=== PATIENT | male | born 1960 | race Caucasian/White ===

== ENCOUNTER 2018-11-10 09:55 | Inpatient (IN) | payer MEDICAID ==
[2018-11-10] MEDS ORDERED: Famotidine 20 MG/2 ML SDV IVPUSH ONE (09:58)
--- NOTE | 2018-11-10 09:58 | EDM.PDOC ---
ED HPI GENERAL MEDICAL PROBLEM - General Chief Complaint: General Stated Complaint: pale, decrease level of response, not normal self Time Seen by Provider: 11/10/18 09:57 Source of Information: Reports: Patient, [facility] Records, Old Records ([facility] EMR. No paper hospital chart available.), Other ([facility] records from hospitalization in October 2018) History Limitations: Reports: Altered Mental Status - History of Present Illness INITIAL COMMENTS - FREE TEXT/NARRATIVE: The patient was brought to the emergency room via transport vehicle from [facility] or evaluation of apparent intermittent brief apneic episodes since yesterday evening with episodes lasting about 15-30 seconds. The patient is an extremely poor historian secondary to his current psychosis and emotional status. No apparent recent history of chest pain or anginal type symptoms. Only limited history available from the halfway. Note that the patient was recently hospitalized at the [facility] from 11/01 through 11/06/17 with multiple adjustment of medications that that time, including increasing his Depakote and change to Risperdal. Accu-Chek was also increased in the 400s yesterday with increased Lantus therapy by his regular provider, SAMMI Gore, from [facility] in [place], at that time. He apparently normally runs high blood sugars with sliding scale not in effect. No apparent recent abdominal complaints, anorexia, foul-smelling urine, etc. The patient also denies any recent fever, cough, wheezing, dyspnea, etc.. Patient was tachycardic this morning with known history of tachycardia in the past and current beta raisa therapy. The patient has been declining since June 2018 with frequent falls, however no acute injury. Note recent CT scan of the head and EEG at the [facility] in [place] as below with patient more lethargic since yesterday evening. He denies any current pain or discomfort. The patient did receive his morning medications today. Onset: Gradual, Unknown/Unsure Onset Date: 11/09/18 Duration: Getting Worse Location: Reports: Other (No apparent pain) Quality: Reports: Same as Previous Episode Severity: Moderate Improves with: Reports: None Worsens with: Reports: None Context: Reports: Other (As above). Denies: Sick Contact, Trauma Associated Symptoms: Reports: Confusion (Stable). 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 (see below) (None) - Related Data Allergies Allergy/AdvReac Type Severity Reaction Status Date / Time loteprednol Allergy Unknown Other Verified 11/10/18 10:48 prednisolone Allergy Unknown Other Verified 11/10/18 10:48 atorvastatin Allergy Other Verified 11/10/18 10:48 Home Meds: Home Meds Acetaminophen 650 mg PO Q6H PRN 11/10/18 [History] Allopurinol [Zyloprim] 100 mg PO DAILY 11/10/18 [History] Bisacodyl [Correctol] 5 mg PO Q12H PRN 11/10/18 [History] Cholecalciferol (Vitamin D3) [Vitamin D3] 4,000 unit PO DAILY 11/10/18 [History] Divalproex Sodium [Divalproex Sodium ER] 500 mg PO BID 11/10/18 [History] Dorzolamide HCl/Pf [Dorzolamide 2% Eye Drop] 1 drop EYEBOTH BID 11/10/18 [ History] EPINEPHrine [Symjepi] 0.3 mg SQ Q15M PRN 11/10/18 [History] Famotidine 20 mg PO BID 11/10/18 [History] Fenofibrate Nanocrystallized [Fenofibrate] 145 mg PO BEDTIME 11/10/18 [History] Hydrocortisone [Hydrocortisone 2.5% Crm] 1 applicful RECTAL BID PRN 11/10/18 [ History] Insulin Glarg,Human.Rec.Analog [Lantus] 30 unit SUBCUT BEDTIME 11/10/18 [History ] L.acidoph,Paracasei, B.lactis [Probiotic] 1 each PO DAILY 11/10/18 [History] Latanoprost [Xalatan] 1 drop EYEBOTH BEDTIME 11/10/18 [History] Levothyroxine Sodium [Euthyrox] 50 mcg PO DAILY 11/10/18 [History] Melatonin 3 mg PO BEDTIME 11/10/18 [History] Metoprolol Tartrate 25 mg PO BID 11/10/18 [History] Miconazole [Miconazole 2% Crm] 1 applic TOP BID PRN 11/10/18 [History] Pravastatin Sodium [Pravachol] 40 mg PO BEDTIME 11/10/18 [History] Psyllium Husk [Metamucil] 0.4 gm PO DAILY 11/10/18 [History] Timolol Maleate [Timoptic 0.5% Opth Soln] 1 drop EYEBOTH BID 11/10/18 [History] risperiDONE 2 mg PO BEDTIME 11/10/18 [History] Past Medical History HEENT History: Reports: Cataract, Glaucoma Cardiovascular History: Reports: Arrhythmia, High Cholesterol, Hypertension, Other (See Below) Other Cardiovascular History: Known sinus tachycardia. Mixed hyperlipidemia. Respiratory History: Reports: Other (See Below). Denies: Asthma, COPD Other Respiratory History: History of respiratory failure Gastrointestinal History: Reports: Chronic Constipation, GERD Musculoskeletal History: Reports: Gout, Osteoarthritis, RA, Other (See Below) Other Musculoskeletal History: Juvenile rheumatoid arthritis. History of rhabdomyolysis. Neurological History: Reports: Concussion, Head Trauma, Neuropathy, Diabetic, Neuropathy, Peripheral, Parkinson's, Seizure, Other (See Below) Other Neuro History: Bilateral encephalomalacia by CT scan. History of traumatic brain injury. Neuroleptic induced parkinsonian disease. Recurrent falls. Psychiatric History: Reports: Addiction, Anxiety, Bipolar, Depression, Psych Hospitalization(s), Psychosis, Schizophrenia, Other (See Below) Other Psychiatric History: History of alcohol abuse Endocrine/Metabolic History: Reports: Diabetes, Type II, IDDM, Obesity/BMI 30+, Vitamin D Deficiency. Denies: Hypothyroidism Hematologic History: Reports: None. Denies: Anemia Dermatologic History: Reports: Other (See Below) Other Dermatologic History: Recurrent tinea. - Infectious Disease History Infectious Disease History: Reports: None (Unknown) - Past Surgical History HEENT Surgical History: Reports: Cataract Surgery - Past Imaging History Past Imaging History: Reports: CAT Scan (Last CT of the head at the [facility] on 11/01/18 with previous evaluations on 07/12/18, 09/29/17, and 04/27/16. CT of the abdomen and pelvis on 11/04/17.), EEG (At the [facility] in October 2018 negative by history.) Social & Family History - Family History Family Medical History: Unobtainable - Alcohol Use Alcohol Use History: Yes Number of Drinks Per Day Comment: Alcohol abuse history as above - Living Situation & Occupation Living situation: Reports: Extended Care Facility ([facility]) ED ROS GENERAL - Review of Systems Review Of Systems: ROS reveals no pertinent complaints other than HPI. ED EXAM, GENERAL - Physical Exam Exam: See Below Exam Limited By: Altered Mental Status General Appearance: Alert, No Apparent Distress. No: Lethargic Eye Exam: Bilateral Eye: EOMI, Normal Fundi, Normal Inspection (No nystagmus), PERRL Ears: Normal External Exam, Normal Canal, Hearing Grossly Normal, Normal TMs Nose: Normal Inspection, Normal Mucosa, No Blood Throat/Mouth: Normal Inspection, Normal Lips, Normal Teeth, Normal Gums, Normal Oropharynx, Normal Voice, No Airway Compromise. No: Dysphagia, Perioral Cyanosis Head: Atraumatic, Normocephalic. No: Facial Swelling, Facial Tenderness, Sinus Tenderness Neck: Normal Inspection, Supple, Non-Tender, Full Range of Motion. No: Lymphadenopathy (L), Lymphadenopathy (R), Thyromegaly Respiratory/Chest: No Respiratory Distress, Lungs Clear, Normal Breath Sounds, No Accessory Muscle Use, Chest Non-Tender, Other (Occasional brief episodes of abdominal breathing but no true apnea or distress). No: Pleural Rub, Retractions Cardiovascular: Normal Peripheral Pulses, No Edema, No Gallop, No JVD, No Murmur , No Rub, Tachycardia (Mild. Regular rhythm). No: Gallop/S3, Gallop/S4, Friction Rub Peripheral Pulses: 2+: Radial (L), Radial (R) GI/Abdominal: Normal Bowel Sounds, Soft, Non-Tender, No Organomegaly, No Distention, No Abnormal Bruit, No Mass, Pelvis Stable, Other (Obese). No: Guarding (Male) Exam: Deferred Rectal (Males) Exam: Deferred Back Exam: Normal Inspection, Full Range of Motion. No: CVA Tenderness (L), CVA Tenderness (R), Muscle Spasm Extremities: Normal Inspection, Normal Range of Motion, Non-Tender, No Pedal Edema, Normal Capillary Refill. No: Rossy's Sign Neurological: Alert, Confused (Stable psychosis), Disoriented, Other (Mild resting tremor, rigidity, and cogwheeling) Psychiatric: Flat Affect. No: Anxious, Depressed Mood Skin Exam: Warm, Dry, Intact, Normal Color, No Rash. No: Diaphoretic, Ecchymosis, Wound/Incision Lymphatic: No Adenopathy EKG INTERPRETATION EKG Date: 11/10/18 Time: 09:59 Rhythm: Other (Sinus tachycardia) Rate (Beats/Min): 114 Bledsoe: Normal (Neutral cardiac) P-Wave: Enlarged (Mild diffuse biphasic P waves with extreme poor R-wave progression in the anterior leads) QRS: Normal (0.07 seconds) ST-T: Other (Noisy baseline with nonspecific diffuse ST changes with no evidence of ischemia) OH/PQ Interval: 0.17 seconds Comparison: NA - No Prior EKG EKG Interpretation Comments: 1. No acute ischemic changes 2. Sinus tachycardia Course - Vital Signs Last Recorded V/S: Last Vital Signs Temp 36.1 C 11/10/18 10:05 Pulse 115 H 11/10/18 11:26 Resp 17 11/10/18 11:26 BP 128/68 11/10/18 11:26 Pulse Ox 98 11/10/18 11:26 Vital Signs - 24 hr 11/10/18 11/10/18 11/10/18 10:05 10:39 11:26 Temperature [ 36.1 C Temporal] Pulse, 110 H 111 H 115 H Peripheral [ Left Pulse Oximetry] Respiratory 30 H 24 H 17 Rate Blood Pressure 132/79 129/78 128/68 [Right Upper Arm] O2 Sat by Pulse 97 96 98 Oximetry - Orders/Labs/Meds Orders: Active Orders 24 hr Category Date Time Status Cardiac Monitoring [RC] . DIRECTED Care 11/10/18 09:58 Active EKG Documentation Completion [RC] ASDIRECTED Care 11/10/18 09:58 Active Oxygen Therapy, ED [RC] PRN Care 11/10/18 09:58 Active Peripheral IV Care [RC] . DIRECTED Care 11/10/18 09:58 Active Pulse Oximetry [RC] CONTINUOUS Care 11/10/18 09:58 Active Up With Assistance [RC] PFP Care 11/10/18 09:58 Active Vital Signs [RC] PFP Care 11/10/18 09:58 Active Nothing per Oral Now Diet [DIET] Diet 11/10/18 Breakfast Active Chest 1V Frontal [CR] Stat Exams 11/10/18 09:58 Taken Sodium Chloride 0.9% [Saline Flush] Med 11/10/18 09:58 Active 10 ml FLUSH ASDIRECTED PRN Obtain Past Medical Record [OM.PC] Urgent Oth 11/10/18 09:58 Active Peripheral IV Insertion Adult [OM.PC] Stat Oth 11/10/18 09:58 Ordered Resuscitation Status Stat Resus Stat 11/10/18 09:58 Ordered Medication Orders Sodium Chloride (Saline Flush) 10 ml FLUSH ASDIRECTED PRN PRN Reason: Keep Vein Open Labs: Laboratory Tests 11/10/18 11/10/18 11/10/18 Range/Units 10:10 10:10 10:10 WBC 13.8 H (4.0-10.2) K/uL RBC 4.18 L (4.33-5.41) M/uL Hgb 13.8 D (13.1-16.8) g/dL Hct 41.0 (39.0-49.0) % MCV 98.1 H (84.0-98.0) fL MCH 33.0 (28.2-33.3) pg MCHC 33.7 (31.7-36.0) g/dL RDW 14.1 (11.2-14.1) % Plt Count 275 (150-350) K/uL Neut % (Auto) 86.4 H (45.0-80.0) % Lymph % (Auto) 5.7 L (10.0-50.0) % [place] % (Auto) 7.7 (2.0-14.0) % Eos % (Auto) 0.1 (0.0-5.0) % Baso % (Auto) 0.1 (0.0-2.0) % Neut # (Auto) 11.92 H (1.40-7.00) K/uL Lymph # (Auto) 0.78 (0.50-3.50) K/uL [place] # (Auto) 1.06 H (0.00-1.00) K/uL Eos # (Auto) 0.01 (0.00-0.50) K/uL Baso # (Auto) 0.01 (0.00-0.20) K/uL PT 12.3 H (9.5-12.0) SEC INR 1.1 APTT 30.3 (21.0-31.3) SEC D-Dimer, Quantitative 2520 H (0-400) ng/mL Sodium (136-145) mmol/L Potassium (3.5-5.1) mmol/L Chloride (98-107) mmol/L Carbon Dioxide (21.0-32.0) mmol/L BUN (7-18) mg/dL Creatinine (0.51-1.17) mg/dL Est Cr Clr Drug Dosing Estimated GFR (MDRD) mL/min Glucose (74-106) mg/dL Lactic Acid (0.4-2.0) mmol/L Uric Acid (2.6-7.2) mg/dL Calcium (8.5-10.1) mg/dL Magnesium (1.8-2.4) mg/dL Total Bilirubin (0.2-1.0) mg/dL AST (15-37) U/L ALT (12-78) U/L Alkaline Phosphatase (46-116) IU/L Creatine Kinase (26-308) U/L Creatine Kinase Index (0.0-2.5) % CK-MB (CK-2) (0.00-3.60) ng/mL Troponin I (0.000-0.056) ng/mL NT-Pro-B Natriuret Pep (0-125) pg/mL Total Protein (6.4-8.2) g/dL Albumin (3.4-5.0) g/dL TSH, Ultra Sensitive (0.358-3.740) mIU/mL Ketones 11/10/18 11/10/18 11/10/18 Range/Units 10:10 10:10 10:10 WBC (4.0-10.2) K/uL RBC (4.33-5.41) M/uL Hgb (13.1-16.8) g/dL Hct (39.0-49.0) % MCV (84.0-98.0) fL MCH (28.2-33.3) pg MCHC (31.7-36.0) g/dL RDW (11.2-14.1) % Plt Count (150-350) K/uL Neut % (Auto) (45.0-80.0) % Lymph % (Auto) (10.0-50.0) % [place] % (Auto) (2.0-14.0) % Eos % (Auto) (0.0-5.0) % Baso % (Auto) (0.0-2.0) % Neut # (Auto) (1.40-7.00) K/uL Lymph # (Auto) (0.50-3.50) K/uL [place] # (Auto) (0.00-1.00) K/uL Eos # (Auto) (0.00-0.50) K/uL Baso # (Auto) (0.00-0.20) K/uL PT (9.5-12.0) SEC INR APTT (21.0-31.3) SEC D-Dimer, Quantitative (0-400) ng/mL Sodium 130 L (136-145) mmol/L Potassium 5.4 H (3.5-5.1) mmol/L Chloride 96 L (98-107) mmol/L Carbon Dioxide 20.0 L (21.0-32.0) mmol/L BUN 27 H (7-18) mg/dL Creatinine 1.58 H (0.51-1.17) mg/dL Est Cr Clr Drug Dosing TNP Estimated GFR (MDRD) 45 mL/min Glucose 465 H* (74-106) mg/dL Lactic Acid 2.2 H (0.4-2.0) mmol/L Uric Acid 4.5 (2.6-7.2) mg/dL Calcium 9.4 (8.5-10.1) mg/dL Magnesium 1.7 L (1.8-2.4) mg/dL Total Bilirubin 0.9 (0.2-1.0) mg/dL AST 33 (15-37) U/L ALT 25 (12-78) U/L Alkaline Phosphatase 86 (46-116) IU/L Creatine Kinase 58 (26-308) U/L Creatine Kinase Index 2.6 H (0.0-2.5) % CK-MB (CK-2) 1.50 (0.00-3.60) ng/mL Troponin I 0.000 (0.000-0.056) ng/mL NT-Pro-B Natriuret Pep 412 H (0-125) pg/mL Total Protein 8.4 H (6.4-8.2) g/dL Albumin 2.8 L (3.4-5.0) g/dL TSH, Ultra Sensitive 3.667 (0.358-3.740) mIU/mL Ketones Small Meds: Medications Generic Name Dose Route Start Last Admin Trade Name Freq PRN Reason Stop Dose Admin Sodium Chloride 10 ml 11/10/18 09:58 Saline Flush FLUSH ASDIRECTED PRN Keep Vein Open Discontinued Medications Generic Name Dose Route Start Last Admin Trade Name Freq PRN Reason Stop Dose Admin Famotidine 40 mg 11/10/18 09:58 11/10/18 10:17 Pepcid IVPUSH 11/10/18 09:59 40 mg ONETIME ONE Administration - Radiology Interpretation Free Text/Narrative:: 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 Departure - Departure Time of Disposition: 11:50 Disposition: Refer to Observation Condition: Fair Clinical Impression: Rheumatoid arthritis, Psychosis, Hypertension, Apnea, IDDM (insulin dependent diabetes mellitus), Elevated d-dimer, CHF (congestive heart failure), Tachycardia, Renal insufficiency, Hyponatremia, Hyperkalemia, Hypomagnesemia, Hypoalbuminemia - Discharge Information *PRESCRIPTION DRUG MONITORING PROGRAM REVIEWED*: Not Applicable *COPY OF PRESCRIPTION DRUG MONITORING REPORT IN PATIENT TODD: Not Applicable Referrals: Stefanie Sandoval MD [Primary Care Provider] - Forms: ED Department Discharge Care Plan Goals: See plan - Problem List & Annotations (1) Apnea SNOMED Code(s): 7675912, 878903970 Code(s): R06.81 - APNEA, NOT ELSEWHERE CLASSIFIED Status: Acute Priority : High Current Visit: Yes Onset Date: 11/09/18 Annotation/Comment:: No true apneic episodes in the emergency room with more abdominal type breathing. Note baseline sinus tachycardia with no apparent chest pain or anginal complaints despite CHF. No significant EKG changes. Note NO CODE STATUS. Telephone consultation with Valerie from the [facility] in [place] with no telemetry beds available in their facility. We did receive approval for admission to this facility. Plan to place the patient in observation status with transfer to the [facility] in [place] tomorrow. Otherwise, he will be transferred back to his regular provider, Stefanie Sandoval MD at [facility] in [place], in the a.m., if no bed is still available. Initiate standard rule out PR orders. No oxygen therapy is required at this time. (2) CHF (congestive heart failure) SNOMED Code(s): 88311183 Code(s): I50.9 - HEART FAILURE, UNSPECIFIED Status: Acute Priority: High Current Visit: Yes Onset Date: 11/10/18 Annotation/Comment:: No Chest pain or anginal complaints with chest pain protocol not initiated in the emergency room. Note NO CODE STATUS with no further echocardiogram, cardiology workup, etc. Qualifiers: Heart failure type: unspecified Heart failure chronicity: acute Qualified Code(s): I50.9 - Heart failure, unspecified (3) Elevated d-dimer SNOMED Code(s): 074746032 Code(s): R79.89 - OTHER SPECIFIED ABNORMAL FINDINGS OF BLOOD CHEMISTRY Status: Acute Priority: High Current Visit: Yes Onset Date: 11/10/18 Annotation/Comment:: Newly diagnosed. CT scan not available at this time. Note renal insufficiency and NO CODE STATUS. Venous Doppler studies to be conducted later today. (4) Hypertension SNOMED Code(s): 83085934 Code(s): I10 - ESSENTIAL (PRIMARY) HYPERTENSION Status: Chronic Priority : Medium Current Visit: Yes Annotation/Comment:: Good control in the emergency room. Qualifiers: Hypertension type: essential hypertension Qualified Code(s): I10 - Essential (primary) hypertension (5) IDDM (insulin dependent diabetes mellitus) SNOMED Code(s): 02236964 Code(s): E11.9 - TYPE 2 DIABETES MELLITUS WITHOUT COMPLICATIONS; Z79.4 - FDC (CURRENT) USE OF INSULIN Status: Chronic Priority: High Current Visit: Yes Annotation/Comment:: Significant persistent hyperglycemia. Low- dose IV Humulin regular insulin on admission with initiation of subcutaneous sliding scale. Glycosylated hemoglobin to be obtained in the a.m. Note mildly elevated ketones. (6) Psychosis SNOMED Code(s): 53315712 Code(s): F29 - UNSP PSYCHOSIS NOT DUE TO A SUBSTANCE OR KNOWN PHYSIOL COND Status: Chronic Priority: High Current Visit: Yes Annotation/Comment:: [facility] [place] during recent hospitalization as above. Continue to observe closely Qualifiers: Psychosis type: schizoaffective disorder Schizoaffective disorder type: bipolar Qualified Code(s): F25.0 - Schizoaffective disorder, bipolar type (7) Rheumatoid arthritis SNOMED Code(s): 57756653 Code(s): M06.9 - RHEUMATOID ARTHRITIS, UNSPECIFIED Status: Chronic Priority: Medium Current Visit: Yes Annotation/Comment:: Stable by history Qualifiers: Rheumatoid arthritis location: multiple sites Rheumatoid factor presence: unspecified presence Qualified Code(s): M06.9 - Rheumatoid arthritis, unspecified (8) Hyperkalemia SNOMED Code(s): 05937353 Code(s): E87.5 - HYPERKALEMIA Status: Acute Priority: High Current Visit: Yes Onset Date: 11/10/18 Annotation/Comment:: IV Lasix therapy. IV Humulin regular as above. Continue to observe closely. Note newly diagnosed diabetic nephropathy. (9) Hypoalbuminemia SNOMED Code(s): 375333342 Code(s): E88.09 - [facility] DISORDERS OF PLASMA-PROTEIN METABOLISM, NEC Status: Acute Priority: Medium Current Visit: Yes Onset Date: 11/10/18 Annotation/Comment:: Observe for now. Consider high protein Glucerna supplements. (10) Hypomagnesemia SNOMED Code(s): 281179525 Code(s): E83.42 - HYPOMAGNESEMIA Status: Acute Priority: Medium Current Visit: Yes Onset Date: 11/10/18 Annotation/Comment:: Observe for now secondary to his renal insufficiency. (11) Hyponatremia SNOMED Code(s): 15430086 Code(s): E87.1 - HYPO-OSMOLALITY AND HYPONATREMIA Status: Acute Priority : High Current Visit: Yes Onset Date: 11/10/18 Annotation/Comment:: Secondary to his CHF. IV Lasix therapy as above. Hyponatremia may be partial etiology to his increased lethargy. Note recent medication changes, CT scan of the head, EEG, etc. at the [facility] [place] as above. (12) Renal insufficiency SNOMED Code(s): 294686682, 227718831 Code(s): N28.9 - DISORDER OF KIDNEY AND URETER, UNSPECIFIED Status: Acute Priority: High Current Visit: Yes Onset Date: 11/10/18 Annotation/ Comment:: Newly diagnosed probable diabetic nephropathy. IV Lasix therapy with caution as above. Continue to observe closely by his regular providers at the accepting physicians. (13) Tachycardia SNOMED Code(s): 8281500 Code(s): R00.0 - TACHYCARDIA, UNSPECIFIED Status: Chronic Priority: Medium Current Visit: Yes Annotation/Comment:: Consider increase of beta raisa therapy. Observe for now. - Problem List Review Problem List Initiated/Reviewed/Updated: Yes - My Orders Last 24 Hours: My Active Orders 11/10/18 09:58 Cardiac Monitoring [RC] . DIRECTED EKG Documentation Completion [RC] ASDIRECTED Oxygen Therapy, ED [RC] PRN Peripheral IV Care [RC] . DIRECTED Pulse Oximetry [RC] CONTINUOUS Up With Assistance [RC] PFP Vital Signs [RC] PFP Chest 1V Frontal [CR] Stat Sodium Chloride 0.9% [Saline Flush] 10 ml FLUSH ASDIRECTED PRN Obtain Past Medical Record [OM.PC] Urgent Peripheral IV Insertion Adult [OM.PC] Stat Resuscitation Status Stat 11/10/18 Breakfast Nothing per Oral Now Diet [DIET] - Assessment/Plan Admission H&P: Please use this note as an admission H&P Last 24 Hours: My Active Orders 11/10/18 09:58 Cardiac Monitoring [RC] . DIRECTED EKG Documentation Completion [RC] ASDIRECTED Oxygen Therapy, ED [RC] PRN Peripheral IV Care [RC] . DIRECTED Pulse Oximetry [RC] CONTINUOUS Up With Assistance [RC] PFP Vital Signs [RC] PFP Chest 1V Frontal [CR] Stat Sodium Chloride 0.9% [Saline Flush] 10 ml FLUSH ASDIRECTED PRN Obtain Past Medical Record [OM.PC] Urgent Peripheral IV Insertion Adult [OM.PC] Stat Resuscitation Status Stat 11/10/18 Breakfast Nothing per Oral Now Diet [DIET] Assessment:: As above Plan: As above. Extensive precautions were given to the patient, who is in agreement with the treatment plan. The patient's condition is stable enough for observation status and general supervision. Transfer to the [facility] in [place] tomorrow planned as above.
[2018-11-10 11:17] LABS: CHLORIDE,CL 96 mmol/L (98-107); SODIUM,NA 130 mmol/L (136-145)
[2018-11-10] MEDS ORDERED: Acetaminophen 325 MG Tab PO PRN (12:00)
[2018-11-10] MEDS ORDERED: Insulin Regular, Human 100 Units/ML 3 ML Vial IV ONE ×2 (12:06→14:55)
[2018-11-10] MEDS: Furosemide 40 MG/4 ML VIAL IVPUSH SCH ×2 (13:36→20:37)
[2018-11-10] MEDS: Enoxaparin 100 MG/1 ML Syringe SUBCUT SCH (13:36)
[2018-11-10] MEDS: Sodium Chloride 0.9% 10 ML Syringe FLUSH PRN (13:37)
--- NOTE | 2018-11-10 15:02 | PCM.SN ---
- Free Text/Narrative Note: Verbal telephone report from Estrella ididwork tech, indicates negative bilateral leg Venous doppler study for DVT. UA is negative with no infection source so far. WBC elevation secondary to stress reaction? Continue to observe for now with no indication for antibiotics to this point. Recent Accu-check also shows increased blood sugar. Additional dose of 10 IU of Humulin regular with labs and sliding scale already scheduled for later this PM. May need to consider insulin infusion, if hyperglycemia remains refractory to above therapy.
[2018-11-10] MEDS ORDERED: Insulin Glarg,Human.Rec.Analog 100 UNIT/ML ML SUBCUT SCH ×2 (18:12→20:00)
[2018-11-10] MEDS ORDERED: Insulin Glarg,Human.Rec.Analog 100 UNIT/ML ML SUBCUT ONE (18:13)
[2018-11-10] MEDS: Divalproex Sodium Delayed-Release 250 MG Tab.CR PO SCH (18:16)
[2018-11-10] MEDS: Omeprazole 20 MG Cap.CR PO SCH (18:17)
[2018-11-10] MEDS: Metoprolol Tartrate 25 MG Tab PO SCH (18:18)
[2018-11-10] MEDS: Timolol Maleate 0.5% Ophth Soln 5 ML Bottle EYEBOTH SCH (18:32)
[2018-11-10] MEDS: Dorzolamide 2% Ophth Soln 10 ML Bottle EYEBOTH SCH (18:32)
[2018-11-10] MEDS: Insulin Lispro 100 Units/ML 3 ML Vial SUBCUT SCH ×3 (18:41→21:43)
[2018-11-10] MEDS ORDERED: Insulin Lispro 100 Units/ML 3 ML Vial SUBCUT ONE (18:43)
[2018-11-10] MEDS ORDERED: Fenofibrate,Micronized 134 MG Cap PO SCH (20:00)
[2018-11-10] MEDS ORDERED: Pravastatin 20 MG Tab PO SCH (20:00)
[2018-11-10] MEDS ORDERED: risperiDONE 1 MG Tab PO SCH (20:00)
[2018-11-10] MEDS ORDERED: Melatonin 3 MG Tab PO SCH (20:00)
[2018-11-10] MEDS: Latanoprost 0.005% Ophth Soln 2.5 ML Bottle EYEBOTH SCH (20:36)
[2018-11-10] MEDS ORDERED: Insulin Lispro Protamine/Lispro 75-25 100 Units/ML 10 ML Vial SUBCUT ONE (21:00)
[2018-11-11] MEDS: Furosemide 40 MG/4 ML VIAL IVPUSH SCH ×2 (03:33→12:11)
[2018-11-11] MEDS: Sodium Chloride 0.9% 10 ML Syringe FLUSH PRN ×5 (03:34→20:21)
[2018-11-11] MEDS ORDERED: Insulin Lispro 100 Units/ML 3 ML Vial SUBCUT SCH (07:30)
[2018-11-11 07:31] LABS: HEMOGLOBIN A1C 8.2 % (4.3-5.7)
[2018-11-11] MEDS ORDERED: Allopurinol 100 MG Tab PO SCH (08:00)
[2018-11-11] MEDS ORDERED: Levothyroxine 50 MCG Tab PO SCH (08:00)
[2018-11-11] MEDS ORDERED: Lactobacillus Rhamnosus GG (Probiotic) Cap PO SCH (08:00)
[2018-11-11] MEDS ORDERED: PSYLLIUM HUSK 0.4 GM PO SCH (08:00)
[2018-11-11] MEDS ORDERED: Cholecalciferol (Vitamin D3) 1,000 Unit Tab PO SCH (08:00)
[2018-11-11] MEDS: Insulin Lispro 100 Units/ML 3 ML Vial SUBCUT SCH ×4 (08:02→20:30)
[2018-11-11] MEDS: Divalproex Sodium Delayed-Release 250 MG Tab.CR PO SCH (08:03)
[2018-11-11] MEDS: Omeprazole 20 MG Cap.CR PO SCH (08:03)
[2018-11-11] MEDS: Insulin Glarg,Human.Rec.Analog 100 UNIT/ML ML SUBCUT SCH ×2 (08:03→17:36)
[2018-11-11] MEDS: Metoprolol Tartrate 25 MG Tab PO SCH (08:04)
[2018-11-11] MEDS: Timolol Maleate 0.5% Ophth Soln 5 ML Bottle EYEBOTH SCH ×2 (08:05→17:40)
[2018-11-11] MEDS: Dorzolamide 2% Ophth Soln 10 ML Bottle EYEBOTH SCH ×2 (08:05→17:40)
[2018-11-11] MEDS ORDERED: Potassium Chloride 10% 20 MEQ/15 ML Soln 15 ML UD Cup PO SCH (09:15)
[2018-11-11] MEDS: cefTRIAXone 1 GM in Sodium Chloride 0.9% 100 ML IV SCH ×2 (09:41→20:21)
[2018-11-11] MEDS: metroNIDAZOLE/Normal Saline 500 MG in Premix Bag 1 BAG IV SCH ×2 (10:16→17:35)
--- NOTE | 2018-11-11 11:27 | PCM.PN ---
- General Info Date of Service: 11/11/18 Admission Dx/Problem (Free Text): 1. CHF 2. Decompensated IDDM 3. Sedation Subjective Update: He is an extremely poor historian secondary to his mental status and sedation. Functional Status: Reports: Pain Controlled, Tolerating Diet (Some borderline aspiration), Urinating, New Symptoms (Difficulty taking oral medication). Denies: Ambulating, Incentive Spirometry (Unable to perform) Pain Score: 0 - Review of Systems General: Reports: Weakness (Stable Table chronic), Fatigue, Malaise. Denies: Fever, Chills, Night Sweats, Appetite HEENT: Reports: No Symptoms Pulmonary: Reports: No Symptoms. Denies: Shortness of Breath, Cough, Wheezing Cardiovascular: Reports: Edema (Dependent edema improved) Gastrointestinal: Reports: No Symptoms Genitourinary: Reports: No Symptoms Musculoskeletal: Reports: No Symptoms Skin: Reports: Bruising (Lovenox sites). Denies: Diaphoresis Neurological: Reports: Confusion (Stable), Pre-Existing Deficit, Tremors ( Resting), Difficulty Walking (Stable), Weakness (Stable) Psychiatric: Reports: Confusion. Denies: Agitation, Hallucinations - Patient Data Vitals - Most Recent: Last Vital Signs Temp 37.1 C 11/11/18 09:00 Pulse 110 H 11/11/18 09:00 Resp 40 H 11/11/18 09:00 BP 105/64 11/11/18 09:00 Pulse Ox 95 11/11/18 09:00 Vital Signs - 24 hr 11/10/18 11/10/18 11/10/18 11:26 12:02 16:02 Temperature [ Oral] Temperature [ 35.8 C 37.7 C Temporal] Pulse, Peripheral Pulse, 115 H 114 H 107 H Peripheral [ Left Pulse Oximetry] Respiratory 17 32 H 24 H Rate Blood Pressure Blood Pressure 128/68 114/73 152/79 H [Right Upper Arm] O2 Sat by Pulse 98 97 97 Oximetry 11/10/18 11/10/18 11/10/18 18:02 18:18 20:00 Temperature [ Oral] Temperature [ 36.3 C 36.2 C Temporal] Pulse, 107 H Peripheral Pulse, 107 H 97 Peripheral [ Left Pulse Oximetry] Respiratory 24 H 18 Rate Blood Pressure 152/79 H Blood Pressure 152/79 H 142/79 H [Right Upper Arm] O2 Sat by Pulse 98 Oximetry 11/10/18 11/11/18 11/11/18 22:37 00:00 03:34 Temperature [ Oral] Temperature [ 36.3 C 36.3 C 36.6 C Temporal] Pulse, Peripheral Pulse, 95 105 H 107 H Peripheral [ Left Pulse Oximetry] Respiratory 20 40 H 32 H Rate Blood Pressure Blood Pressure 142/79 H 126/80 142/78 H [Right Upper Arm] O2 Sat by Pulse 98 97 96 Oximetry 11/11/18 11/11/18 07:00 09:00 Temperature [ 37.1 C Oral] Temperature [ 36.6 C Temporal] Pulse, Peripheral Pulse, 105 H 110 H Peripheral [ Left Pulse Oximetry] Respiratory 20 40 H Rate Blood Pressure Blood Pressure 136/78 105/64 [Right Upper Arm] O2 Sat by Pulse 96 95 Oximetry Weight - Most Recent: 89.358 kg (Down 9 kg since admission?) Imaging Impressions - Last 24 Hours: site monitor shows occasional mild sinus tachycardia in the 100s with no other ectopy or arrhythmia Venous Doppler studies of the lower extremities bilaterally were negative for DVT. Lab Results Last 24 Hours: Laboratory Results - last 24 hr 11/10/18 11/10/18 11/10/18 Range/Units 10:10 10:10 10:10 WBC (4.0-10.2) K/uL RBC (4.33-5.41) M/uL Hgb (13.1-16.8) g/dL Hct (39.0-49.0) % MCV (84.0-98.0) fL MCH (28.2-33.3) pg MCHC (31.7-36.0) g/dL RDW (11.2-14.1) % Plt Count (150-350) K/uL Neut % (Auto) (45.0-80.0) % Lymph % (Auto) (10.0-50.0) % [place] % (Auto) (2.0-14.0) % Eos % (Auto) (0.0-5.0) % Baso % (Auto) (0.0-2.0) % Neut # (Auto) (1.40-7.00) K/uL Lymph # (Auto) (0.50-3.50) K/uL [place] # (Auto) (0.00-1.00) K/uL Eos # (Auto) (0.00-0.50) K/uL Baso # (Auto) (0.00-0.20) K/uL D-Dimer, Quantitative (0-400) ng/mL Sodium 130 L (136-145) mmol/L Potassium 5.4 H (3.5-5.1) mmol/L Chloride 96 L (98-107) mmol/L Carbon Dioxide 20.0 L (21.0-32.0) mmol/L BUN 27 H (7-18) mg/dL Creatinine 1.58 H (0.51-1.17) mg/dL Est Cr Clr Drug Dosing TNP Estimated GFR (MDRD) 45 mL/min Glucose 465 H* (74-106) mg/dL POC Glucose (65-110) mg/dl Hemoglobin A1c (4.3-5.7) % Lactic Acid 2.2 H (0.4-2.0) mmol/L Uric Acid 4.5 (2.6-7.2) mg/dL Calcium 9.4 (8.5-10.1) mg/dL Phosphorus (2.6-4.7) mg/dL Magnesium 1.7 L (1.8-2.4) mg/dL Total Bilirubin 0.9 (0.2-1.0) mg/dL AST 33 (15-37) U/L ALT 25 (12-78) U/L Alkaline Phosphatase 86 (46-116) IU/L Creatine Kinase 58 (26-308) U/L Creatine Kinase Index 2.6 H (0.0-2.5) % CK-MB (CK-2) 1.50 (0.00-3.60) ng/mL Troponin I 0.000 (0.000-0.056) ng/mL NT-Pro-B Natriuret Pep 412 H (0-125) pg/mL Total Protein 8.4 H (6.4-8.2) g/dL Albumin 2.8 L (3.4-5.0) g/dL TSH, Ultra Sensitive 3.667 (0.358-3.740) mIU/mL Specimen Type Urine Color Urine Appearance Urine pH (5.0-9.0) Ur Specific [place] (1.005-1.030) Urine Protein (NEGATIVE) mg/dL Urine Glucose (UA) (NEGATIVE) mg/dL Urine Ketones (NEGATIVE) mg/dL Urine Occult Blood (NEGATIVE) Urine Nitrite (NEGATIVE) Urine Bilirubin (NEGATIVE) Urine Urobilinogen (0.2-1.0) E.U./dL Ur Leukocyte Esterase (NEGATIVE) Urine RBC /HPF Urine WBC /HPF Ur Epithelial Cells /LPF Amorphous Sediment (0/HPF) /HPF Urine Bacteria (NONE TO FEW) /HPF Ketones Small 11/10/18 11/10/18 11/10/18 Range/Units 13:05 14:46 16:48 WBC (4.0-10.2) K/uL RBC (4.33-5.41) M/uL Hgb (13.1-16.8) g/dL Hct (39.0-49.0) % MCV (84.0-98.0) fL MCH (28.2-33.3) pg MCHC (31.7-36.0) g/dL RDW (11.2-14.1) % Plt Count (150-350) K/uL Neut % (Auto) (45.0-80.0) % Lymph % (Auto) (10.0-50.0) % [place] % (Auto) (2.0-14.0) % Eos % (Auto) (0.0-5.0) % Baso % (Auto) (0.0-2.0) % Neut # (Auto) (1.40-7.00) K/uL Lymph # (Auto) (0.50-3.50) K/uL [place] # (Auto) (0.00-1.00) K/uL Eos # (Auto) (0.00-0.50) K/uL Baso # (Auto) (0.00-0.20) K/uL D-Dimer, Quantitative (0-400) ng/mL Sodium (136-145) mmol/L Potassium (3.5-5.1) mmol/L Chloride (98-107) mmol/L Carbon Dioxide (21.0-32.0) mmol/L BUN (7-18) mg/dL Creatinine (0.51-1.17) mg/dL Est Cr Clr Drug Dosing Estimated GFR (MDRD) mL/min Glucose (74-106) mg/dL POC Glucose 482 H* 358 H* (65-110) mg/dl Hemoglobin A1c (4.3-5.7) % Lactic Acid (0.4-2.0) mmol/L Uric Acid (2.6-7.2) mg/dL Calcium (8.5-10.1) mg/dL Phosphorus (2.6-4.7) mg/dL Magnesium (1.8-2.4) mg/dL Total Bilirubin (0.2-1.0) mg/dL AST (15-37) U/L ALT (12-78) U/L Alkaline Phosphatase (46-116) IU/L Creatine Kinase (26-308) U/L Creatine Kinase Index (0.0-2.5) % CK-MB (CK-2) (0.00-3.60) ng/mL Troponin I (0.000-0.056) ng/mL NT-Pro-B Natriuret Pep (0-125) pg/mL Total Protein (6.4-8.2) g/dL Albumin (3.4-5.0) g/dL TSH, Ultra Sensitive (0.358-3.740) mIU/mL Specimen Type [place] Urine Color Dark yellow Urine Appearance Slightly cloudy Urine pH 5.5 (5.0-9.0) Ur Specific [place] 1.015 (1.005-1.030) Urine Protein 30 H (NEGATIVE) mg/dL Urine Glucose (UA) >=1000 H (NEGATIVE) mg/dL Urine Ketones 40 H (NEGATIVE) mg/dL Urine Occult Blood Negative (NEGATIVE) Urine Nitrite Negative (NEGATIVE) Urine Bilirubin Moderate H (NEGATIVE) Urine Urobilinogen 0.2 (0.2-1.0) E.U./dL Ur Leukocyte Esterase Negative (NEGATIVE) Urine RBC 0-5 /HPF Urine WBC 0-5 /HPF Ur Epithelial Cells Few /LPF Amorphous Sediment Few (0/HPF) /HPF Urine Bacteria Rare (NONE TO FEW) /HPF Ketones 11/10/18 11/10/18 11/11/18 Range/Units 17:39 20:36 03:31 WBC (4.0-10.2) K/uL RBC (4.33-5.41) M/uL Hgb (13.1-16.8) g/dL Hct (39.0-49.0) % MCV (84.0-98.0) fL MCH (28.2-33.3) pg MCHC (31.7-36.0) g/dL RDW (11.2-14.1) % Plt Count (150-350) K/uL Neut % (Auto) (45.0-80.0) % Lymph % (Auto) (10.0-50.0) % [place] % (Auto) (2.0-14.0) % Eos % (Auto) (0.0-5.0) % Baso % (Auto) (0.0-2.0) % Neut # (Auto) (1.40-7.00) K/uL Lymph # (Auto) (0.50-3.50) K/uL [place] # (Auto) (0.00-1.00) K/uL Eos # (Auto) (0.00-0.50) K/uL Baso # (Auto) (0.00-0.20) K/uL D-Dimer, Quantitative (0-400) ng/mL Sodium 132 L (136-145) mmol/L Potassium 4.6 (3.5-5.1) mmol/L Chloride 97 L (98-107) mmol/L Carbon Dioxide 20.6 L (21.0-32.0) mmol/L BUN 29 H (7-18) mg/dL Creatinine 1.72 H (0.51-1.17) mg/dL Est Cr Clr Drug Dosing 42.70 Estimated GFR (MDRD) 41 mL/min Glucose 424 H* (74-106) mg/dL POC Glucose 454 H* 393 H* (65-110) mg/dl Hemoglobin A1c (4.3-5.7) % Lactic Acid (0.4-2.0) mmol/L Uric Acid (2.6-7.2) mg/dL Calcium 9.4 (8.5-10.1) mg/dL Phosphorus 3.2 (2.6-4.7) mg/dL Magnesium (1.8-2.4) mg/dL Total Bilirubin (0.2-1.0) mg/dL AST (15-37) U/L ALT (12-78) U/L Alkaline Phosphatase (46-116) IU/L Creatine Kinase 85 (26-308) U/L Creatine Kinase Index 3.4 H (0.0-2.5) % CK-MB (CK-2) 2.90 (0.00-3.60) ng/mL Troponin I 0.000 (0.000-0.056) ng/mL NT-Pro-B Natriuret Pep (0-125) pg/mL Total Protein (6.4-8.2) g/dL Albumin (3.4-5.0) g/dL TSH, Ultra Sensitive (0.358-3.740) mIU/mL Specimen Type Urine Color Urine Appearance Urine pH (5.0-9.0) Ur Specific [place] (1.005-1.030) Urine Protein (NEGATIVE) mg/dL Urine Glucose (UA) (NEGATIVE) mg/dL Urine Ketones (NEGATIVE) mg/dL Urine Occult Blood (NEGATIVE) Urine Nitrite (NEGATIVE) Urine Bilirubin (NEGATIVE) Urine Urobilinogen (0.2-1.0) E.U./dL Ur Leukocyte Esterase (NEGATIVE) Urine RBC /HPF Urine WBC /HPF Ur Epithelial Cells /LPF Amorphous Sediment (0/HPF) /HPF Urine Bacteria (NONE TO FEW) /HPF Ketones 11/11/18 11/11/18 11/11/18 Range/Units 07:10 07:10 07:13 WBC (4.0-10.2) K/uL RBC (4.33-5.41) M/uL Hgb (13.1-16.8) g/dL Hct (39.0-49.0) % MCV (84.0-98.0) fL MCH (28.2-33.3) pg MCHC (31.7-36.0) g/dL RDW (11.2-14.1) % Plt Count (150-350) K/uL Neut % (Auto) (45.0-80.0) % Lymph % (Auto) (10.0-50.0) % [place] % (Auto) (2.0-14.0) % Eos % (Auto) (0.0-5.0) % Baso % (Auto) (0.0-2.0) % Neut # (Auto) (1.40-7.00) K/uL Lymph # (Auto) (0.50-3.50) K/uL [place] # (Auto) (0.00-1.00) K/uL Eos # (Auto) (0.00-0.50) K/uL Baso # (Auto) (0.00-0.20) K/uL D-Dimer, Quantitative (0-400) ng/mL Sodium 135 L (136-145) mmol/L Potassium 3.9 (3.5-5.1) mmol/L Chloride 97 L (98-107) mmol/L Carbon Dioxide 24.2 (21.0-32.0) mmol/L BUN 34 H (7-18) mg/dL Creatinine 2.03 H (0.51-1.17) mg/dL Est Cr Clr Drug Dosing 36.18 Estimated GFR (MDRD) 34 mL/min Glucose 364 H (74-106) mg/dL POC Glucose 357 H* (65-110) mg/dl Hemoglobin A1c (4.3-5.7) % Lactic Acid (0.4-2.0) mmol/L Uric Acid (2.6-7.2) mg/dL Calcium 9.2 (8.5-10.1) mg/dL Phosphorus (2.6-4.7) mg/dL Magnesium (1.8-2.4) mg/dL Total Bilirubin 1.0 (0.2-1.0) mg/dL AST 27 (15-37) U/L ALT 22 (12-78) U/L Alkaline Phosphatase 79 (46-116) IU/L Creatine Kinase 64 (26-308) U/L Creatine Kinase Index 2.8 H (0.0-2.5) % CK-MB (CK-2) 1.80 (0.00-3.60) ng/mL Troponin I 0.000 (0.000-0.056) ng/mL NT-Pro-B Natriuret Pep 523 H (0-125) pg/mL Total Protein 8.3 H (6.4-8.2) g/dL Albumin 2.6 L (3.4-5.0) g/dL TSH, Ultra Sensitive (0.358-3.740) mIU/mL Specimen Type Urine Color Urine Appearance Urine pH (5.0-9.0) Ur Specific [place] (1.005-1.030) Urine Protein (NEGATIVE) mg/dL Urine Glucose (UA) (NEGATIVE) mg/dL Urine Ketones (NEGATIVE) mg/dL Urine Occult Blood (NEGATIVE) Urine Nitrite (NEGATIVE) Urine Bilirubin (NEGATIVE) Urine Urobilinogen (0.2-1.0) E.U./dL Ur Leukocyte Esterase (NEGATIVE) Urine RBC /HPF Urine WBC /HPF Ur Epithelial Cells /LPF Amorphous Sediment (0/HPF) /HPF Urine Bacteria (NONE TO FEW) /HPF Ketones Negative 11/11/18 11/11/18 11/11/18 Range/Units 07:15 07:15 07:15 WBC 14.3 H (4.0-10.2) K/uL RBC 4.02 L (4.33-5.41) M/uL Hgb 13.2 (13.1-16.8) g/dL Hct 39.7 (39.0-49.0) % MCV 98.8 H (84.0-98.0) fL MCH 32.8 (28.2-33.3) pg MCHC 33.2 (31.7-36.0) g/dL RDW 14.5 H (11.2-14.1) % Plt Count 395 H D (150-350) K/uL Neut % (Auto) 80.7 H (45.0-80.0) % Lymph % (Auto) 7.6 L (10.0-50.0) % [place] % (Auto) 11.5 (2.0-14.0) % Eos % (Auto) 0.1 (0.0-5.0) % Baso % (Auto) 0.1 (0.0-2.0) % Neut # (Auto) 11.56 H (1.40-7.00) K/uL Lymph # (Auto) 1.09 (0.50-3.50) K/uL [place] # (Auto) 1.65 H (0.00-1.00) K/uL Eos # (Auto) 0.02 (0.00-0.50) K/uL Baso # (Auto) 0.01 (0.00-0.20) K/uL D-Dimer, Quantitative 3260 H (0-400) ng/mL Sodium (136-145) mmol/L Potassium (3.5-5.1) mmol/L Chloride (98-107) mmol/L Carbon Dioxide (21.0-32.0) mmol/L BUN (7-18) mg/dL Creatinine (0.51-1.17) mg/dL Est Cr Clr Drug Dosing Estimated GFR (MDRD) mL/min Glucose (74-106) mg/dL POC Glucose (65-110) mg/dl Hemoglobin A1c 8.2 H (4.3-5.7) % Lactic Acid (0.4-2.0) mmol/L Uric Acid (2.6-7.2) mg/dL Calcium (8.5-10.1) mg/dL Phosphorus (2.6-4.7) mg/dL Magnesium (1.8-2.4) mg/dL Total Bilirubin (0.2-1.0) mg/dL AST (15-37) U/L ALT (12-78) U/L Alkaline Phosphatase (46-116) IU/L Creatine Kinase (26-308) U/L Creatine Kinase Index (0.0-2.5) % CK-MB (CK-2) (0.00-3.60) ng/mL Troponin I (0.000-0.056) ng/mL NT-Pro-B Natriuret Pep (0-125) pg/mL Total Protein (6.4-8.2) g/dL Albumin (3.4-5.0) g/dL TSH, Ultra Sensitive (0.358-3.740) mIU/mL Specimen Type Urine Color Urine Appearance Urine pH (5.0-9.0) Ur Specific [place] (1.005-1.030) Urine Protein (NEGATIVE) mg/dL Urine Glucose (UA) (NEGATIVE) mg/dL Urine Ketones (NEGATIVE) mg/dL Urine Occult Blood (NEGATIVE) Urine Nitrite (NEGATIVE) Urine Bilirubin (NEGATIVE) Urine Urobilinogen (0.2-1.0) E.U./dL Ur Leukocyte Esterase (NEGATIVE) Urine RBC /HPF Urine WBC /HPF Ur Epithelial Cells /LPF Amorphous Sediment (0/HPF) /HPF Urine Bacteria (NONE TO FEW) /HPF Ketones Laboratory Tests 11/10/18 11/10/18 11/10/18 Range/Units 10:10 10:10 10:10 WBC 13.8 H (4.0-10.2) K/uL RBC 4.18 L (4.33-5.41) M/uL Hgb 13.8 D (13.1-16.8) g/dL Hct 41.0 (39.0-49.0) % MCV 98.1 H (84.0-98.0) fL MCH 33.0 (28.2-33.3) pg MCHC 33.7 (31.7-36.0) g/dL RDW 14.1 (11.2-14.1) % Plt Count 275 (150-350) K/uL Neut % (Auto) 86.4 H (45.0-80.0) % Lymph % (Auto) 5.7 L (10.0-50.0) % [place] % (Auto) 7.7 (2.0-14.0) % Eos % (Auto) 0.1 (0.0-5.0) % Baso % (Auto) 0.1 (0.0-2.0) % Neut # (Auto) 11.92 H (1.40-7.00) K/uL Lymph # (Auto) 0.78 (0.50-3.50) K/uL [place] # (Auto) 1.06 H (0.00-1.00) K/uL Eos # (Auto) 0.01 (0.00-0.50) K/uL Baso # (Auto) 0.01 (0.00-0.20) K/uL PT 12.3 H (9.5-12.0) SEC INR 1.1 APTT 30.3 (21.0-31.3) SEC D-Dimer, Quantitative 2520 H (0-400) ng/mL Sodium (136-145) mmol/L Potassium (3.5-5.1) mmol/L Chloride (98-107) mmol/L Carbon Dioxide (21.0-32.0) mmol/L BUN (7-18) mg/dL Creatinine (0.51-1.17) mg/dL Est Cr Clr Drug Dosing Estimated GFR (MDRD) mL/min Glucose (74-106) mg/dL POC Glucose (65-110) mg/dl Hemoglobin A1c (4.3-5.7) % Lactic Acid (0.4-2.0) mmol/L Uric Acid (2.6-7.2) mg/dL Calcium (8.5-10.1) mg/dL Phosphorus (2.6-4.7) mg/dL Magnesium (1.8-2.4) mg/dL Total Bilirubin (0.2-1.0) mg/dL AST (15-37) U/L ALT (12-78) U/L Alkaline Phosphatase (46-116) IU/L Creatine Kinase (26-308) U/L Creatine Kinase Index (0.0-2.5) % CK-MB (CK-2) (0.00-3.60) ng/mL Troponin I (0.000-0.056) ng/mL NT-Pro-B Natriuret Pep (0-125) pg/mL Total Protein (6.4-8.2) g/dL Albumin (3.4-5.0) g/dL TSH, Ultra Sensitive (0.358-3.740) mIU/mL Specimen Type Urine Color Urine Appearance Urine pH (5.0-9.0) Ur Specific [place] (1.005-1.030) Urine Protein (NEGATIVE) mg/dL Urine Glucose (UA) (NEGATIVE) mg/dL Urine Ketones (NEGATIVE) mg/dL Urine Occult Blood (NEGATIVE) Urine Nitrite (NEGATIVE) Urine Bilirubin (NEGATIVE) Urine Urobilinogen (0.2-1.0) E.U./dL Ur Leukocyte Esterase (NEGATIVE) Urine RBC /HPF Urine WBC /HPF Ur Epithelial Cells /LPF Amorphous Sediment (0/HPF) /HPF Urine Bacteria (NONE TO FEW) /HPF Ketones 11/10/18 11/10/18 11/10/18 Range/Units 10:10 10:10 10:10 WBC (4.0-10.2) K/uL RBC (4.33-5.41) M/uL Hgb (13.1-16.8) g/dL Hct (39.0-49.0) % MCV (84.0-98.0) fL MCH (28.2-33.3) pg MCHC (31.7-36.0) g/dL RDW (11.2-14.1) % Plt Count (150-350) K/uL Neut % (Auto) (45.0-80.0) % Lymph % (Auto) (10.0-50.0) % [place] % (Auto) (2.0-14.0) % Eos % (Auto) (0.0-5.0) % Baso % (Auto) (0.0-2.0) % Neut # (Auto) (1.40-7.00) K/uL Lymph # (Auto) (0.50-3.50) K/uL [place] # (Auto) (0.00-1.00) K/uL Eos # (Auto) (0.00-0.50) K/uL Baso # (Auto) (0.00-0.20) K/uL PT (9.5-12.0) SEC INR APTT (21.0-31.3) SEC D-Dimer, Quantitative (0-400) ng/mL Sodium 130 L (136-145) mmol/L Potassium 5.4 H (3.5-5.1) mmol/L Chloride 96 L (98-107) mmol/L Carbon Dioxide 20.0 L (21.0-32.0) mmol/L BUN 27 H (7-18) mg/dL Creatinine 1.58 H (0.51-1.17) mg/dL Est Cr Clr Drug Dosing TNP Estimated GFR (MDRD) 45 mL/min Glucose 465 H* (74-106) mg/dL POC Glucose (65-110) mg/dl Hemoglobin A1c (4.3-5.7) % Lactic Acid 2.2 H (0.4-2.0) mmol/L Uric Acid 4.5 (2.6-7.2) mg/dL Calcium 9.4 (8.5-10.1) mg/dL Phosphorus (2.6-4.7) mg/dL Magnesium 1.7 L (1.8-2.4) mg/dL Total Bilirubin 0.9 (0.2-1.0) mg/dL AST 33 (15-37) U/L ALT 25 (12-78) U/L Alkaline Phosphatase 86 (46-116) IU/L Creatine Kinase 58 (26-308) U/L Creatine Kinase Index 2.6 H (0.0-2.5) % CK-MB (CK-2) 1.50 (0.00-3.60) ng/mL Troponin I 0.000 (0.000-0.056) ng/mL NT-Pro-B Natriuret Pep 412 H (0-125) pg/mL Total Protein 8.4 H (6.4-8.2) g/dL Albumin 2.8 L (3.4-5.0) g/dL TSH, Ultra Sensitive 3.667 (0.358-3.740) mIU/mL Specimen Type Urine Color Urine Appearance Urine pH (5.0-9.0) Ur Specific [place] (1.005-1.030) Urine Protein (NEGATIVE) mg/dL Urine Glucose (UA) (NEGATIVE) mg/dL Urine Ketones (NEGATIVE) mg/dL Urine Occult Blood (NEGATIVE) Urine Nitrite (NEGATIVE) Urine Bilirubin (NEGATIVE) Urine Urobilinogen (0.2-1.0) E.U./dL Ur Leukocyte Esterase (NEGATIVE) Urine RBC /HPF Urine WBC /HPF Ur Epithelial Cells /LPF Amorphous Sediment (0/HPF) /HPF Urine Bacteria (NONE TO FEW) /HPF Ketones Small 11/10/18 11/10/18 11/10/18 Range/Units 13:05 14:46 16:48 WBC (4.0-10.2) K/uL RBC (4.33-5.41) M/uL Hgb (13.1-16.8) g/dL Hct (39.0-49.0) % MCV (84.0-98.0) fL MCH (28.2-33.3) pg MCHC (31.7-36.0) g/dL RDW (11.2-14.1) % Plt Count (150-350) K/uL Neut % (Auto) (45.0-80.0) % Lymph % (Auto) (10.0-50.0) % [place] % (Auto) (2.0-14.0) % Eos % (Auto) (0.0-5.0) % Baso % (Auto) (0.0-2.0) % Neut # (Auto) (1.40-7.00) K/uL Lymph # (Auto) (0.50-3.50) K/uL [place] # (Auto) (0.00-1.00) K/uL Eos # (Auto) (0.00-0.50) K/uL Baso # (Auto) (0.00-0.20) K/uL PT (9.5-12.0) SEC INR APTT (21.0-31.3) SEC D-Dimer, Quantitative (0-400) ng/mL Sodium (136-145) mmol/L Potassium (3.5-5.1) mmol/L Chloride (98-107) mmol/L Carbon Dioxide (21.0-32.0) mmol/L BUN (7-18) mg/dL Creatinine (0.51-1.17) mg/dL Est Cr Clr Drug Dosing Estimated GFR (MDRD) mL/min Glucose (74-106) mg/dL POC Glucose 482 H* 358 H* (65-110) mg/dl Hemoglobin A1c (4.3-5.7) % Lactic Acid (0.4-2.0) mmol/L Uric Acid (2.6-7.2) mg/dL Calcium (8.5-10.1) mg/dL Phosphorus (2.6-4.7) mg/dL Magnesium (1.8-2.4) mg/dL Total Bilirubin (0.2-1.0) mg/dL AST (15-37) U/L ALT (12-78) U/L Alkaline Phosphatase (46-116) IU/L Creatine Kinase (26-308) U/L Creatine Kinase Index (0.0-2.5) % CK-MB (CK-2) (0.00-3.60) ng/mL Troponin I (0.000-0.056) ng/mL NT-Pro-B Natriuret Pep (0-125) pg/mL Total Protein (6.4-8.2) g/dL Albumin (3.4-5.0) g/dL TSH, Ultra Sensitive (0.358-3.740) mIU/mL Specimen Type [place] Urine Color Dark yellow Urine Appearance Slightly cloudy Urine pH 5.5 (5.0-9.0) Ur Specific [place] 1.015 (1.005-1.030) Urine Protein 30 H (NEGATIVE) mg/dL Urine Glucose (UA) >=1000 H (NEGATIVE) mg/dL Urine Ketones 40 H (NEGATIVE) mg/dL Urine Occult Blood Negative (NEGATIVE) Urine Nitrite Negative (NEGATIVE) Urine Bilirubin Moderate H (NEGATIVE) Urine Urobilinogen 0.2 (0.2-1.0) E.U./dL Ur Leukocyte Esterase Negative (NEGATIVE) Urine RBC 0-5 /HPF Urine WBC 0-5 /HPF Ur Epithelial Cells Few /LPF Amorphous Sediment Few (0/HPF) /HPF Urine Bacteria Rare (NONE TO FEW) /HPF Ketones 11/10/18 11/10/18 11/11/18 Range/Units 17:39 20:36 03:31 WBC (4.0-10.2) K/uL RBC (4.33-5.41) M/uL Hgb (13.1-16.8) g/dL Hct (39.0-49.0) % MCV (84.0-98.0) fL MCH (28.2-33.3) pg MCHC (31.7-36.0) g/dL RDW (11.2-14.1) % Plt Count (150-350) K/uL Neut % (Auto) (45.0-80.0) % Lymph % (Auto) (10.0-50.0) % [place] % (Auto) (2.0-14.0) % Eos % (Auto) (0.0-5.0) % Baso % (Auto) (0.0-2.0) % Neut # (Auto) (1.40-7.00) K/uL Lymph # (Auto) (0.50-3.50) K/uL [place] # (Auto) (0.00-1.00) K/uL Eos # (Auto) (0.00-0.50) K/uL Baso # (Auto) (0.00-0.20) K/uL PT (9.5-12.0) SEC INR APTT (21.0-31.3) SEC D-Dimer, Quantitative (0-400) ng/mL Sodium 132 L (136-145) mmol/L Potassium 4.6 (3.5-5.1) mmol/L Chloride 97 L (98-107) mmol/L Carbon Dioxide 20.6 L (21.0-32.0) mmol/L BUN 29 H (7-18) mg/dL Creatinine 1.72 H (0.51-1.17) mg/dL Est Cr Clr Drug Dosing 42.70 Estimated GFR (MDRD) 41 mL/min Glucose 424 H* (74-106) mg/dL POC Glucose 454 H* 393 H* (65-110) mg/dl Hemoglobin A1c (4.3-5.7) % Lactic Acid (0.4-2.0) mmol/L Uric Acid (2.6-7.2) mg/dL Calcium 9.4 (8.5-10.1) mg/dL Phosphorus 3.2 (2.6-4.7) mg/dL Magnesium (1.8-2.4) mg/dL Total Bilirubin (0.2-1.0) mg/dL AST (15-37) U/L ALT (12-78) U/L Alkaline Phosphatase (46-116) IU/L Creatine Kinase 85 (26-308) U/L Creatine Kinase Index 3.4 H (0.0-2.5) % CK-MB (CK-2) 2.90 (0.00-3.60) ng/mL Troponin I 0.000 (0.000-0.056) ng/mL NT-Pro-B Natriuret Pep (0-125) pg/mL Total Protein (6.4-8.2) g/dL Albumin (3.4-5.0) g/dL TSH, Ultra Sensitive (0.358-3.740) mIU/mL Specimen Type Urine Color Urine Appearance Urine pH (5.0-9.0) Ur Specific [place] (1.005-1.030) Urine Protein (NEGATIVE) mg/dL Urine Glucose (UA) (NEGATIVE) mg/dL Urine Ketones (NEGATIVE) mg/dL Urine Occult Blood (NEGATIVE) Urine Nitrite (NEGATIVE) Urine Bilirubin (NEGATIVE) Urine Urobilinogen (0.2-1.0) E.U./dL Ur Leukocyte Esterase (NEGATIVE) Urine RBC /HPF Urine WBC /HPF Ur Epithelial Cells /LPF Amorphous Sediment (0/HPF) /HPF Urine Bacteria (NONE TO FEW) /HPF Ketones 11/11/18 11/11/18 11/11/18 Range/Units 07:10 07:10 07:13 WBC (4.0-10.2) K/uL RBC (4.33-5.41) M/uL Hgb (13.1-16.8) g/dL Hct (39.0-49.0) % MCV (84.0-98.0) fL MCH (28.2-33.3) pg MCHC (31.7-36.0) g/dL RDW (11.2-14.1) % Plt Count (150-350) K/uL Neut % (Auto) (45.0-80.0) % Lymph % (Auto) (10.0-50.0) % [place] % (Auto) (2.0-14.0) % Eos % (Auto) (0.0-5.0) % Baso % (Auto) (0.0-2.0) % Neut # (Auto) (1.40-7.00) K/uL Lymph # (Auto) (0.50-3.50) K/uL [place] # (Auto) (0.00-1.00) K/uL Eos # (Auto) (0.00-0.50) K/uL Baso # (Auto) (0.00-0.20) K/uL PT (9.5-12.0) SEC INR APTT (21.0-31.3) SEC D-Dimer, Quantitative (0-400) ng/mL Sodium 135 L (136-145) mmol/L Potassium 3.9 (3.5-5.1) mmol/L Chloride 97 L (98-107) mmol/L Carbon Dioxide 24.2 (21.0-32.0) mmol/L BUN 34 H (7-18) mg/dL Creatinine 2.03 H (0.51-1.17) mg/dL Est Cr Clr Drug Dosing 36.18 Estimated GFR (MDRD) 34 mL/min Glucose 364 H (74-106) mg/dL POC Glucose 357 H* (65-110) mg/dl Hemoglobin A1c (4.3-5.7) % Lactic Acid (0.4-2.0) mmol/L Uric Acid (2.6-7.2) mg/dL Calcium 9.2 (8.5-10.1) mg/dL Phosphorus (2.6-4.7) mg/dL Magnesium (1.8-2.4) mg/dL Total Bilirubin 1.0 (0.2-1.0) mg/dL AST 27 (15-37) U/L ALT 22 (12-78) U/L Alkaline Phosphatase 79 (46-116) IU/L Creatine Kinase 64 (26-308) U/L Creatine Kinase Index 2.8 H (0.0-2.5) % CK-MB (CK-2) 1.80 (0.00-3.60) ng/mL Troponin I 0.000 (0.000-0.056) ng/mL NT-Pro-B Natriuret Pep 523 H (0-125) pg/mL Total Protein 8.3 H (6.4-8.2) g/dL Albumin 2.6 L (3.4-5.0) g/dL TSH, Ultra Sensitive (0.358-3.740) mIU/mL Specimen Type Urine Color Urine Appearance Urine pH (5.0-9.0) Ur Specific [place] (1.005-1.030) Urine Protein (NEGATIVE) mg/dL Urine Glucose (UA) (NEGATIVE) mg/dL Urine Ketones (NEGATIVE) mg/dL Urine Occult Blood (NEGATIVE) Urine Nitrite (NEGATIVE) Urine Bilirubin (NEGATIVE) Urine Urobilinogen (0.2-1.0) E.U./dL Ur Leukocyte Esterase (NEGATIVE) Urine RBC /HPF Urine WBC /HPF Ur Epithelial Cells /LPF Amorphous Sediment (0/HPF) /HPF Urine Bacteria (NONE TO FEW) /HPF Ketones Negative 11/11/18 11/11/18 11/11/18 Range/Units 07:15 07:15 07:15 WBC 14.3 H (4.0-10.2) K/uL RBC 4.02 L (4.33-5.41) M/uL Hgb 13.2 (13.1-16.8) g/dL Hct 39.7 (39.0-49.0) % MCV 98.8 H (84.0-98.0) fL MCH 32.8 (28.2-33.3) pg MCHC 33.2 (31.7-36.0) g/dL RDW 14.5 H (11.2-14.1) % Plt Count 395 H D (150-350) K/uL Neut % (Auto) 80.7 H (45.0-80.0) % Lymph % (Auto) 7.6 L (10.0-50.0) % [place] % (Auto) 11.5 (2.0-14.0) % Eos % (Auto) 0.1 (0.0-5.0) % Baso % (Auto) 0.1 (0.0-2.0) % Neut # (Auto) 11.56 H (1.40-7.00) K/uL Lymph # (Auto) 1.09 (0.50-3.50) K/uL [place] # (Auto) 1.65 H (0.00-1.00) K/uL Eos # (Auto) 0.02 (0.00-0.50) K/uL Baso # (Auto) 0.01 (0.00-0.20) K/uL PT (9.5-12.0) SEC INR APTT (21.0-31.3) SEC D-Dimer, Quantitative 3260 H (0-400) ng/mL Sodium (136-145) mmol/L Potassium (3.5-5.1) mmol/L Chloride (98-107) mmol/L Carbon Dioxide (21.0-32.0) mmol/L BUN (7-18) mg/dL Creatinine (0.51-1.17) mg/dL Est Cr Clr Drug Dosing Estimated GFR (MDRD) mL/min Glucose (74-106) mg/dL POC Glucose (65-110) mg/dl Hemoglobin A1c 8.2 H (4.3-5.7) % Lactic Acid (0.4-2.0) mmol/L Uric Acid (2.6-7.2) mg/dL Calcium (8.5-10.1) mg/dL Phosphorus (2.6-4.7) mg/dL Magnesium (1.8-2.4) mg/dL Total Bilirubin (0.2-1.0) mg/dL AST (15-37) U/L ALT (12-78) U/L Alkaline Phosphatase (46-116) IU/L Creatine Kinase (26-308) U/L Creatine Kinase Index (0.0-2.5) % CK-MB (CK-2) (0.00-3.60) ng/mL Troponin I (0.000-0.056) ng/mL NT-Pro-B Natriuret Pep (0-125) pg/mL Total Protein (6.4-8.2) g/dL Albumin (3.4-5.0) g/dL TSH, Ultra Sensitive (0.358-3.740) mIU/mL Specimen Type Urine Color Urine Appearance Urine pH (5.0-9.0) Ur Specific [place] (1.005-1.030) Urine Protein (NEGATIVE) mg/dL Urine Glucose (UA) (NEGATIVE) mg/dL Urine Ketones (NEGATIVE) mg/dL Urine Occult Blood (NEGATIVE) Urine Nitrite (NEGATIVE) Urine Bilirubin (NEGATIVE) Urine Urobilinogen (0.2-1.0) E.U./dL Ur Leukocyte Esterase (NEGATIVE) Urine RBC /HPF Urine WBC /HPF Ur Epithelial Cells /LPF Amorphous Sediment (0/HPF) /HPF Urine Bacteria (NONE TO FEW) /HPF Ketones Claudio Results Last 24 Hours: Microbiology 11/10/18 13:05 Urine Culture - Preliminary Urine, Catheterized NO GROWTH AFTER 1 DAY Med Orders - Current: Current Medications Acetaminophen (Tylenol) 650 mg PO Q4H PRN PRN Reason: Pain Allopurinol (Zyloprim) 100 mg PO DAILY COUNT INCLUDES THE [facility] Last Admin: 11/11/18 08:06 Dose: Not Given Cholecalciferol (Vitamin D3) 4,000 units PO DAILY COUNT INCLUDES THE [facility] Last Admin: 11/11/18 08:06 Dose: Not Given Divalproex Sodium (Divalproex Sodium) 500 mg PO BID COUNT INCLUDES THE [facility] Last Admin: 11/11/18 08:03 Dose: Not Given Dorzolamide HCl (Trusopt 2% Ophth Soln) 0 ml EYEBOTH BID COUNT INCLUDES THE [facility] Last Admin: 11/11/18 08:05 Dose: 2 drop Enoxaparin Sodium (Lovenox) 100 mg SUBCUT Q24H COUNT INCLUDES THE [facility] Last Admin: 11/10/18 13:36 Dose: 100 mg Fenofibrate (Fenofibrate) 134 mg PO BEDTIME COUNT INCLUDES THE [facility] Last Admin: 11/10/18 20:37 Dose: Not Given Furosemide (Lasix) 40 mg IVPUSH Q8H COUNT INCLUDES THE [facility] Last Admin: 11/11/18 03:33 Dose: 40 mg Ceftriaxone Sodium 1 gm/ (Sodium Chloride) 100 mls @ 200 mls/hr IV Q12H COUNT INCLUDES THE [facility] Last Admin: 11/11/18 09:41 Dose: 200 mls/hr Metronidazole 500 mg/ Premix 100 mls @ 100 mls/hr IV Q8H COUNT INCLUDES THE [facility] Last Admin: 11/11/18 10:16 Dose: 100 mls/hr Insulin Glargine (Lantus) 20 unit SUBCUT BID COUNT INCLUDES THE [facility] Last Admin: 11/11/18 08:03 Dose: 20 units Insulin Human Lispro (Humalog) 0 unit SUBCUT QIDACANDBED COUNT INCLUDES THE [facility]; Protocol Last Admin: 11/11/18 08:02 Dose: 10 units Lactobacillus Rhamnosus (Culturelle) 1 cap PO DAILY COUNT INCLUDES THE [facility] Last Admin: 11/11/18 08:03 Dose: Not Given Latanoprost (Xalatan 0.005% Ophth Soln) 0 ml EYEBOTH BEDTIME COUNT INCLUDES THE [facility] Last Admin: 11/10/18 20:36 Dose: 1 drop Levothyroxine Sodium (Synthroid) 50 mcg PO DAILY COUNT INCLUDES THE [facility] Last Admin: 11/11/18 08:04 Dose: Not Given Melatonin (Melatonin) 3 mg PO BEDTIME COUNT INCLUDES THE [facility] Last Admin: 11/10/18 20:38 Dose: Not Given Metoprolol Tartrate (Lopressor) 25 mg PO BID COUNT INCLUDES THE [facility] Last Admin: 11/11/18 08:04 Dose: Not Given Non-Formulary Medication (Psyllium Husk [Metamucil]) 0.4 gm PO DAILY COUNT INCLUDES THE [facility] Omeprazole (Omeprazole) [facility] Last Admin: 11/11/18 08:03 Dose: Not Given Potassium Chloride (Potassium Chloride Solution) 20 meq PO BID COUNT INCLUDES THE [facility] Pravastatin Sodium (Pravachol) 40 mg PO BEDTIME COUNT INCLUDES THE [facility] Last Admin: 11/10/18 20:38 Dose: Not Given Risperidone (Risperidal) 1 mg PO BEDTIME COUNT INCLUDES THE [facility] Sodium Chloride (Saline Flush) 10 ml FLUSH ASDIRECTED PRN PRN Reason: Keep Vein Open Last Admin: 11/11/18 10:16 Dose: 10 ml Sodium Chloride (Saline Flush) 10 ml FLUSH Q12HR PRN PRN Reason: Keep Vein Open Last Admin: 11/11/18 03:34 Dose: 10 ml Timolol Maleate (Timoptic 0.5% Ophth Soln) 0 ml EYEBOTH BID COUNT INCLUDES THE [facility] Last Admin: 11/11/18 08:05 Dose: 2 drop Discontinued Medications Famotidine (Pepcid) 40 mg IVPUSH ONETIME ONE Stop: 11/10/18 09:59 Last Admin: 11/10/18 10:17 Dose: 40 mg Insulin Glargine (Lantus) 30 unit SUBCUT BEDTIME MARGY Insulin Glargine (Lantus) 40 unit SUBCUT QPM COUNT INCLUDES THE [facility] Last Admin: 11/10/18 20:39 Dose: Not Given Insulin Glargine (Lantus) 40 unit SUBCUT ONETIME ONE Stop: 11/10/18 18:14 Last Admin: 11/10/18 18:47 Dose: 40 units Insulin Human Lispro (Humalog) 14 unit SUBCUT ONETIME ONE Stop: 11/11/18 18:44 Insulin Human Lispro (Humalog) 14 unit SUBCUT ONETIME ONE Stop: 11/10/18 18:44 Last Admin: 11/10/18 19:11 Dose: 14 units Insulin Human Lispro (Humalog) 0 unit SUBCUT BIDAC COUNT INCLUDES THE [facility]; Protocol Insulin Human Regular (Humulin R) 10 unit IV ONETIME ONE Stop: 11/10/18 12:07 Last Admin: 11/10/18 13:35 Dose: 10 units Insulin Human Regular (Humulin R) 10 unit IV ONETIME ONE Stop: 11/10/18 14:56 Last Admin: 11/10/18 15:10 Dose: 10 units Insulin Lispro Protam/Lispro Human (Humalog Mix 75-25) 16 unit SUBCUT ONETIME ONE Stop: 11/10/18 21:01 Last Admin: 11/10/18 21:41 Dose: 16 units Risperidone (Risperidal) 2 mg PO BEDTIME COUNT INCLUDES THE [facility] Last Admin: 11/10/18 20:38 Dose: Not Given - Exam Quality Assessment: DVT Prophylaxis (Lovenox). No: Supplemental Oxygen, Urine Catheter, Skin Breakdown, Restraints General: No Acute Distress, Sedated, Lethargic HEENT: Pupils Equal, Pupils Reactive, EOMI, Mucous Membr. Moist/[place]. No: Scleral Icterus Neck: Supple, Trachea Midline, No JVD, No Thyromegaly. No: +2 Carotid Pulse wo Bruit, Lymphadenopathy Lungs: Normal Respiratory Effort, Rales (Bilateral basilar rales), Other (No apnea). No: Rhonchi, Rub, Wheezing Cardiovascular: Regular Rate (Although occasional borderline tachycardia), Regular Rhythm, No Murmurs. No: Gallops, Rubs GI/Abdominal Exam: Normal Bowel Sounds, Soft, Non-Tender, No Organomegaly, No Distention, No Abnormal Bruit, No Mass, Other (Obese). No: Guarding (Male) Exam: Deferred Back Exam: Normal Inspection, Full Range of Motion. No: CVA Tenderness (L), CVA Tenderness (R), Muscle Spasm Extremities: Non-Tender, Normal Capillary Refill, Pedal Edema (Improved trace pedal/pretibial edema). No: Rossy's Sign Peripheral Pulses: 2+: Radial (L), Radial (R), Dorsalis Pedis (L), Dorsalis Pedis (R) Skin: Warm, Intact, Ecchymosis (Mild at Lovenox sites) Neurological: No New Focal Deficit, Other (Sedated) Psy/Mental Status: No: Agitated, Hallucinations, Withdrawal Symptoms EKG INTERPRETATION EKG Date: 11/11/18 Time: 07:12 Rhythm: Other (While sinus tachycardia) Rate (Beats/Min): 106 [place]: Normal (Cardiac axis) P-Wave: Present QRS: Normal (0.08 seconds) ST-T: Other (Stable T-wave inversion in lead aVL) QT: Normal DE/PQ Interval: 0.16 seconds with extreme poor R-wave progression in the anterior leads Comparison: No Change (From last EKG on 11/10/18) EKG Interpretation Comments: 1. No acute ischemic changes - Problem List & Annotations (1) Apnea SNOMED Code(s): 1317007, 062027846 Code(s): R06.81 - APNEA, NOT ELSEWHERE CLASSIFIED Status: Acute Priority : High Current Visit: Yes Onset Date: 11/09/18 Annotation/Comment:: No true apneic episodes in the emergency room or during initial phases of this hospitalization with more abdominal type breathing. Note baseline sinus tachycardia with no apparent chest pain or anginal complaints despite CHF. She does have some difficulty swallowing his medications with possible incomplete doses of his current Lopressor therapy. No significant EKG changes. Note NO CODE STATUS. Telephone consultation with Valerie from the [facility] in [place] with prior to admission and also this morning with no telemetry beds available in their facility. We did receive approval for continued admission and care in this facility. Stefanie Sandoval MD at [facility] in [place] was informed of the patient's admission and will resume his care later today. Continue observation status with transfer to the [facility] [place] tomorrow, if bed is available. Standard rule out [place] orders have been negative artifactually elevated CK index secondary to a low baseline CK. No oxygen therapy is required at this time. (2) CHF (congestive heart failure) SNOMED Code(s): 70199610 Code(s): I50.9 - HEART FAILURE, UNSPECIFIED Status: Acute Priority: High Current Visit: Yes Onset Date: 11/10/18 Qualifiers: Heart failure type: unspecified Heart failure chronicity: acute Qualified Code(s): I50.9 - Heart failure, unspecified Annotation/Comment:: Continue IV Lasix therapy. RIVETER PNEUMATIC mildly elevated despite this therapy with mildly worsening renal function as below. No Chest pain or anginal complaints with chest pain protocol not initiated in the emergency room. Note NO CODE STATUS with no further echocardiogram, cardiology workup, etc. (3) Elevated d-dimer SNOMED Code(s): 624732797 Code(s): R79.89 - OTHER SPECIFIED ABNORMAL FINDINGS OF BLOOD CHEMISTRY Status: Acute Priority: High Current Visit: Yes Onset Date: 11/10/18 Annotation/Comment:: Newly diagnosed on admission. CT scan not available at this time secondary to equipment failure. Note mildly progressive renal insufficiency and NO CODE STATUS. Venous Doppler studies of the lower extremities yesterday were normal. Continue high-dose IV Lovenox for now. (4) Hypertension SNOMED Code(s): 87741328 Code(s): I10 - ESSENTIAL (PRIMARY) HYPERTENSION Status: Chronic Priority : Medium Current Visit: Yes Qualifiers: Hypertension type: essential hypertension Qualified Code(s): I10 - Essential (primary) hypertension Annotation/Comment:: Good control in the emergency room and during hospitalization. (5) IDDM (insulin dependent diabetes mellitus) SNOMED Code(s): 39255467 Code(s): E11.9 - TYPE 2 DIABETES MELLITUS WITHOUT COMPLICATIONS; Z79.4 - STUD MASTER/MISTRESS (CURRENT) USE OF INSULIN Status: Chronic Priority: High Current Visit: Yes Annotation/Comment:: Hyperglycemia extremely refractory to adequate therapy likely secondary to high-dose Risperdal, which also is a factor in his CHF. Accu-Cheks improved this morning with 2 doses of Low-dose IV Humulin regular insulin and an additional extra dose of Humalog mix required yesterday. Medication adjustments during this hospitalization including increased however now split regimen of his Lantus with continuation of subcutaneous sliding scale. Glycosylated hemoglobin morning is 8.2%. Note mildly elevated ketones on admission however normal this morning. (6) Psychosis SNOMED Code(s): 84635775 Code(s): F29 - UNSP PSYCHOSIS NOT DUE TO A SUBSTANCE OR KNOWN PHYSIOL COND Status: Chronic Priority: High Current Visit: Yes Qualifiers: Psychosis type: schizoaffective disorder Schizoaffective disorder type: bipolar Qualified Code(s): F25.0 - Schizoaffective disorder, bipolar type Annotation/Comment:: [facility] [place] during recent hospitalization as per emergency room note. Secondary to his CHF, refractory hyperglycemia, and significant sedation his Risperdal will be decreased starting this evening. Continue to observe closely. (7) Rheumatoid arthritis SNOMED Code(s): 54673731 Code(s): M06.9 - RHEUMATOID ARTHRITIS, UNSPECIFIED Status: Chronic Priority: Medium Current Visit: Yes Qualifiers: Rheumatoid arthritis location: multiple sites Rheumatoid factor presence: unspecified presence Qualified Code(s): M06.9 - Rheumatoid arthritis, unspecified Annotation/Comment:: Stable by history (8) Hyperkalemia SNOMED Code(s): 03208580 Code(s): E87.5 - HYPERKALEMIA Status: Acute Priority: High Current Visit: Yes Onset Date: 11/10/18 Annotation/Comment:: Potassium level normal now with initiation of low-dose IV potassium chloride secondary to patient's dysphagia, etc. Continue IV Lasix therapy. IV Humulin regular previously given as above. Continue to observe closely. Note newly diagnosed diabetic nephropathy. (9) Hypoalbuminemia SNOMED Code(s): 775919714 Code(s): E88.09 - [facility] DISORDERS OF PLASMA-PROTEIN METABOLISM, NEC Status: Acute Priority: Medium Current Visit: Yes Onset Date: 11/10/18 Annotation/Comment:: Observe for now. Consider high protein Glucerna supplements. (10) Hypomagnesemia SNOMED Code(s): 515333677 Code(s): E83.42 - HYPOMAGNESEMIA Status: Acute Priority: Medium Current Visit: Yes Onset Date: 11/10/18 Annotation/Comment:: Observe for now secondary to his renal insufficiency. (11) Hyponatremia SNOMED Code(s): 61313939 Code(s): E87.1 - HYPO-OSMOLALITY AND HYPONATREMIA Status: Acute Priority : High Current Visit: Yes Onset Date: 11/10/18 Annotation/Comment:: Secondary to his CHF and improved this morning. IV Lasix therapy as above. Hyponatremia may be partial etiology to his increased lethargy. Note recent medication changes, CT scan of the head, EEG, etc. at the [facility] [place] as above. (12) Renal insufficiency SNOMED Code(s): 284569876, 228332411 Code(s): N28.9 - DISORDER OF KIDNEY AND URETER, UNSPECIFIED Status: Acute Priority: High Current Visit: Yes Onset Date: 11/10/18 Annotation/ Comment:: Newly diagnosed probable diabetic nephropathy. IV Lasix therapy with caution as above. Continue to observe closely by his regular providers at the accepting physicians. (13) Tachycardia SNOMED Code(s): 0543631 Code(s): R00.0 - TACHYCARDIA, UNSPECIFIED Status: Chronic Priority: Medium Current Visit: Yes Annotation/Comment:: Consider increase of beta raisa therapy. Observe for now. (14) Dysphagia SNOMED Code(s): 32847516, 042778626 Code(s): R13.10 - DYSPHAGIA, UNSPECIFIED Status: Acute Priority: High Current Visit: Yes Onset Date: ~11/10/18 Qualifiers: Dysphagia type: unspecified Qualified Code(s): R13.10 - Dysphagia, unspecified Annotation/Comment:: Problems with oral medications as above with additional possible aspiration pneumonia secondary to his leukocytosis today. IV Rocephin and IV Flagyl initiated with repeat x-rays tomorrow. - Problem List Review Problem List Initiated/Reviewed/Updated: Yes - My Orders Last 24 Hours: My Active Orders 11/10/18 12:00 Acetaminophen [Tylenol] 650 mg PO Q4H PRN Enoxaparin [Lovenox] 100 mg SUBCUT Q24H Furosemide [Lasix] 40 mg IVPUSH Q8H 11/10/18 12:02 Antiembolic Devices [RC] 08,20 Antiembolic Devices [RC] PER UNIT ROUTINE Communication Order [RC] ROUTINE Communication, Vaccine [RC] PER UNIT ROUTINE Height and Weight [RC] DAILY Oxygen Therapy [RC] PRN Pulse Oximetry [RC] ASDIRECTED VTE/DVT Education [RC] PER UNIT ROUTINE Vital Signs [RC] Q2H OCCULT BLOOD DIAGNOSTIC [OP] Stat Sodium Chloride 0.9% [Saline Flush] 10 ml FLUSH Q12HR PRN Antiembolic Hose [OM.PC] Routine CHF Questionnaire [COMM] Routine DVT/VTE Prophylaxis Reflex [OM.PC] Routine GM Immunization Reflex [OM.PC] Click To Edit 11/10/18 12:10 Venous Doppler Lwr Ext Bi [US] Urgent 11/10/18 12:15 H PYLORI STOOL ANTIGEN [MREF] ONETIME 11/10/18 13:05 CULTURE URINE [RM] Routine 11/10/18 14:00 Blood Glucose Check, Bedside [RC] STAT 11/10/18 16:45 Blood Glucose Check, Bedside [RC] ONETIME 11/10/18 17:30 Insulin Lispro [HumaLOG] See Protocol SUBCUT QIDACANDBED Omeprazole 20 mg PO BIDAC 11/10/18 18:00 Divalproex Sodium 500 mg PO BID Dorzolamide [Trusopt 2% Ophth Soln] 0 ml EYEBOTH BID Metoprolol Tartrate [Lopressor] 25 mg PO BID Timolol Maleate [Timoptic 0.5% Ophth Soln] 0 ml EYEBOTH BID 11/10/18 20:00 Fenofibrate,Micronized [Fenofibrate] 134 mg PO BEDTIME Latanoprost [Xalatan 0.005% Ophth Soln] 0 ml EYEBOTH BEDTIME Melatonin 3 mg PO BEDTIME Pravastatin [Pravachol] 40 mg PO BEDTIME 11/10/18 21:00 Blood Glucose Check, Bedside [RC] QIDACANDBED 11/11/18 03:00 Blood Glucose Check, Bedside [RC] STAT 11/11/18 05:11 EKG Documentation Completion [RC] ASDIRECTED EKG 12 Lead [EK] Routine 11/11/18 08:00 Allopurinol [Zyloprim] 100 mg PO DAILY Cholecalciferol (Vitamin D3) [Vitamin D3] 4,000 units PO DAILY Insulin Glarg,Human.Rec.Analog [LantUS] 20 unit SUBCUT BID Lactobacillus Rhamnosus GG [Culturelle] 1 cap PO DAILY Levothyroxine [Synthroid] 50 mcg PO DAILY Psyllium Husk [Metamucil] 0.4 gm PO DAILY 11/11/18 09:00 cefTRIAXone [Rocephin] 1 gm Sodium Chloride 0.9% [Normal Saline] 100 ml IV Q12H 11/11/18 09:15 Potassium Chloride [Potassium Chloride Solution] 20 meq PO BID 11/11/18 10:00 metroNIDAZOLE/Normal Saline [Flagyl 500 MG in NS 100 ML] 500 mg Premix Bag 1 bag IV Q8H 11/11/18 20:00 risperiDONE [RisperiDAL] 1 mg PO BEDTIME 11/11/18 Breakfast Fluid Restriction [DIET] - Assessment Assessment:: As above - Plan Plan:: As above. Extensive precautions were given to the patient, who is in agreement with the treatment plan. [facility] assumes care as above
[2018-11-11] MEDS: Potassium Chloride 10 MEQ in Premix Bag 1 BAG IV SCH ×2 (12:11→18:40)
[2018-11-11] MEDS: Ondansetron 4 MG/2 ML SDV IVPUSH PRN (12:11)
[2018-11-11] MEDS: Enoxaparin 100 MG/1 ML Syringe SUBCUT SCH (12:12)
[2018-11-11] MEDS ORDERED: Acetaminophen 650 MG Supp RECTAL PRN (13:00)
[2018-11-11] MEDS: Metoprolol Tartrate 5 MG/5 ML SDV IVPUSH SCH ×2 (13:56→18:41)
[2018-11-11] MEDS: Sodium Chloride 0.9% 1,000 ML IV SCH (13:58)
[2018-11-11] MEDS ORDERED: Insulin Lispro 100 Units/ML 3 ML Vial SUBCUT ONE (18:43)
[2018-11-11] MEDS ORDERED: risperiDONE 1 MG Tab PO SCH (20:00)
[2018-11-11] MEDS: Pantoprazole 40 MG Vial IVPUSH SCH (20:21)
[2018-11-11] MEDS: Latanoprost 0.005% Ophth Soln 2.5 ML Bottle EYEBOTH SCH (20:29)
[2018-11-12] MEDS: Metoprolol Tartrate 5 MG/5 ML SDV IVPUSH SCH ×4 (00:12→20:19)
[2018-11-12] MEDS: Potassium Chloride 10 MEQ in Premix Bag 1 BAG IV SCH ×3 (00:12→11:28)
[2018-11-12] MEDS: Sodium Chloride 0.9% 10 ML Syringe FLUSH PRN ×2 (00:15→13:02)
[2018-11-12] MEDS: metroNIDAZOLE/Normal Saline 500 MG in Premix Bag 1 BAG IV SCH ×3 (01:34→17:40)
[2018-11-12] MEDS: Sodium Chloride 0.9% 1,000 ML IV SCH ×2 (01:34→14:26)
[2018-11-12] MEDS: Insulin Lispro 100 Units/ML 3 ML Vial SUBCUT SCH ×4 (07:57→20:17)
[2018-11-12] MEDS: Insulin Glarg,Human.Rec.Analog 100 UNIT/ML ML SUBCUT SCH ×2 (08:00→20:18)
[2018-11-12] MEDS: Timolol Maleate 0.5% Ophth Soln 5 ML Bottle EYEBOTH SCH ×2 (08:01→17:43)
[2018-11-12] MEDS: Dorzolamide 2% Ophth Soln 10 ML Bottle EYEBOTH SCH ×2 (08:01→17:44)
[2018-11-12 08:31] LABS: O2 SATURATION VENOUS 96 %; PCO2 VENOUS 50 mmHG (41-51); PH,VENOUS 7.32 (7.31-7.41); PO2 VENOUS 89 mmHG
[2018-11-12 08:32] LABS: BASE EXCESS VENOUS -1 mmol/L ((-2)-3); BICARBONATE,VENOUS 26 mmol/L (23-28)
[2018-11-12 08:35] LABS: O2 DELIVERY DEVICE NASAL CANNULA
[2018-11-12] MEDS: cefTRIAXone 1 GM in Sodium Chloride 0.9% 100 ML IV SCH ×2 (08:58→20:16)
--- NOTE | 2018-11-12 16:21 | PCM.PN ---
- General Info Date of Service: 11/12/18 Admission Dx/Problem (Free Text): 1. CHF 2. Decompensated IDDM 3. Sedation Subjective Update: He is an extremely poor historian secondary to his mental status and sedation. Functional Status: Reports: Pain Controlled, Other (out of bed to chair) - Review of Systems General: Reports: Weakness HEENT: Reports: No Symptoms Pulmonary: Reports: No Symptoms Cardiovascular: Reports: No Symptoms Gastrointestinal: Reports: Difficulty Swallowing Genitourinary: Reports: No Symptoms Musculoskeletal: Reports: No Symptoms Skin: Reports: No Symptoms Neurological: Reports: Confusion, Trouble Speaking (is saying words today but did get stuck on a couple of phrases), Difficulty Walking (unable), Weakness Psychiatric: Reports: Confusion, Other (less sedated today) - Patient Data Vitals - Most Recent: Last Vital Signs Temp 96.6 F 11/12/18 11:54 Pulse 94 11/12/18 13:01 Resp 23 H 11/12/18 11:54 BP 132/82 11/12/18 13:01 Pulse Ox 94 L 11/12/18 11:54 Weight - Most Recent: 197 lb 0.011 oz I&O - Last 24 Hours: Intake & Output 11/12/18 11/12/18 11/12/18 06:59 14:59 22:59 Intake Total 1600 Balance 1600 Lab Results Last 24 Hours: Laboratory Results - last 24 hr 11/11/18 11/11/18 11/12/18 Range/Units 17:32 20:17 07:23 WBC (4.0-10.2) K/uL RBC (4.33-5.41) M/uL Hgb (13.1-16.8) g/dL Hct (39.0-49.0) % MCV (84.0-98.0) fL MCH (28.2-33.3) pg MCHC (31.7-36.0) g/dL RDW (11.2-14.1) % Plt Count (150-350) K/uL Neut % (Auto) (45.0-80.0) % Lymph % (Auto) (10.0-50.0) % [place] % (Auto) (2.0-14.0) % Eos % (Auto) (0.0-5.0) % Baso % (Auto) (0.0-2.0) % Neut # (Auto) (1.40-7.00) K/uL Lymph # (Auto) (0.50-3.50) K/uL [place] # (Auto) (0.00-1.00) K/uL Eos # (Auto) (0.00-0.50) K/uL Baso # (Auto) (0.00-0.20) K/uL D-Dimer, Quantitative (0-400) ng/mL VBG pH (7.31-7.41) VBG pCO2 (41-51) mmHG VBG pO2 mmHG VBG HCO3 (23-28) mmol/L VBG Total CO2 mmol/L VBG O2 Saturation % VBG Base Excess ((-2)-3) mmol/L O2 Delivery Device Sodium (136-145) mmol/L Potassium (3.5-5.1) mmol/L Chloride (98-107) mmol/L Carbon Dioxide (21.0-32.0) mmol/L BUN (7-18) mg/dL Creatinine (0.51-1.17) mg/dL Est Cr Clr Drug Dosing mL/min Estimated GFR (MDRD) mL/min Glucose (74-106) mg/dL POC Glucose 314 H* 352 H* 274 H* (65-110) mg/dl Calcium (8.5-10.1) mg/dL Phosphorus (2.6-4.7) mg/dL Ammonia (11-32) umol/L Creatine Kinase (26-308) U/L Creatine Kinase Index (0.0-2.5) % CK-MB (CK-2) (0.00-3.60) ng/mL Troponin I (0.000-0.056) ng/mL C-Reactive Protein (<=0.9) mg/dL NT-Pro-B Natriuret Pep (0-125) pg/mL 11/12/18 11/12/18 11/12/18 Range/Units 07:25 07:25 07:25 WBC 11.7 H (4.0-10.2) K/uL RBC 3.42 L (4.33-5.41) M/uL Hgb 11.6 L D (13.1-16.8) g/dL Hct 35.1 L (39.0-49.0) % MCV 102.6 H D (84.0-98.0) fL MCH 33.9 H (28.2-33.3) pg MCHC 33.0 (31.7-36.0) g/dL RDW 14.6 H (11.2-14.1) % Plt Count 271 D (150-350) K/uL Neut % (Auto) 77.4 (45.0-80.0) % Lymph % (Auto) 10.8 (10.0-50.0) % [place] % (Auto) 11.2 (2.0-14.0) % Eos % (Auto) 0.5 (0.0-5.0) % Baso % (Auto) 0.1 (0.0-2.0) % Neut # (Auto) 9.07 H (1.40-7.00) K/uL Lymph # (Auto) 1.27 (0.50-3.50) K/uL [place] # (Auto) 1.31 H (0.00-1.00) K/uL Eos # (Auto) 0.06 (0.00-0.50) K/uL Baso # (Auto) 0.01 (0.00-0.20) K/uL D-Dimer, Quantitative 3730 H (0-400) ng/mL VBG pH (7.31-7.41) VBG pCO2 (41-51) mmHG VBG pO2 mmHG VBG HCO3 (23-28) mmol/L VBG Total CO2 mmol/L VBG O2 Saturation % VBG Base Excess ((-2)-3) mmol/L O2 Delivery Device Sodium 140 (136-145) mmol/L Potassium 4.0 (3.5-5.1) mmol/L Chloride 102 (98-107) mmol/L Carbon Dioxide 27.5 (21.0-32.0) mmol/L BUN 42 H (7-18) mg/dL Creatinine 1.83 H (0.51-1.17) mg/dL Est Cr Clr Drug Dosing 40.13 mL/min Estimated GFR (MDRD) 38 mL/min Glucose 251 H (74-106) mg/dL POC Glucose (65-110) mg/dl Calcium 8.8 (8.5-10.1) mg/dL Phosphorus (2.6-4.7) mg/dL Ammonia (11-32) umol/L Creatine Kinase 46 (26-308) U/L Creatine Kinase Index 2.2 (0.0-2.5) % CK-MB (CK-2) 1.00 (0.00-3.60) ng/mL Troponin I 0.000 (0.000-0.056) ng/mL C-Reactive Protein 28.7 H (<=0.9) mg/dL NT-Pro-B Natriuret Pep 143 H (0-125) pg/mL 11/12/18 11/12/18 11/12/18 Range/Units 07:25 07:25 07:25 WBC (4.0-10.2) K/uL RBC (4.33-5.41) M/uL Hgb (13.1-16.8) g/dL Hct (39.0-49.0) % MCV (84.0-98.0) fL MCH (28.2-33.3) pg MCHC (31.7-36.0) g/dL RDW (11.2-14.1) % Plt Count (150-350) K/uL Neut % (Auto) (45.0-80.0) % Lymph % (Auto) (10.0-50.0) % [place] % (Auto) (2.0-14.0) % Eos % (Auto) (0.0-5.0) % Baso % (Auto) (0.0-2.0) % Neut # (Auto) (1.40-7.00) K/uL Lymph # (Auto) (0.50-3.50) K/uL [place] # (Auto) (0.00-1.00) K/uL Eos # (Auto) (0.00-0.50) K/uL Baso # (Auto) (0.00-0.20) K/uL D-Dimer, Quantitative (0-400) ng/mL VBG pH 7.32 (7.31-7.41) VBG pCO2 50 (41-51) mmHG VBG pO2 89 mmHG VBG HCO3 26 (23-28) mmol/L VBG Total CO2 27 mmol/L VBG O2 Saturation 96 % VBG Base Excess -1 ((-2)-3) mmol/L O2 Delivery Device Nasal cannula Sodium (136-145) mmol/L Potassium (3.5-5.1) mmol/L Chloride (98-107) mmol/L Carbon Dioxide (21.0-32.0) mmol/L BUN (7-18) mg/dL Creatinine (0.51-1.17) mg/dL Est Cr Clr Drug Dosing mL/min Estimated GFR (MDRD) mL/min Glucose (74-106) mg/dL POC Glucose (65-110) mg/dl Calcium (8.5-10.1) mg/dL Phosphorus 2.9 (2.6-4.7) mg/dL Ammonia 4 L (11-32) umol/L Creatine Kinase (26-308) U/L Creatine Kinase Index (0.0-2.5) % CK-MB (CK-2) (0.00-3.60) ng/mL Troponin I (0.000-0.056) ng/mL C-Reactive Protein (<=0.9) mg/dL NT-Pro-B Natriuret Pep (0-125) pg/mL 11/12/18 Range/Units 11:08 WBC (4.0-10.2) K/uL RBC (4.33-5.41) M/uL Hgb (13.1-16.8) g/dL Hct (39.0-49.0) % MCV (84.0-98.0) fL MCH (28.2-33.3) pg MCHC (31.7-36.0) g/dL RDW (11.2-14.1) % Plt Count (150-350) K/uL Neut % (Auto) (45.0-80.0) % Lymph % (Auto) (10.0-50.0) % [place] % (Auto) (2.0-14.0) % Eos % (Auto) (0.0-5.0) % Baso % (Auto) (0.0-2.0) % Neut # (Auto) (1.40-7.00) K/uL Lymph # (Auto) (0.50-3.50) K/uL [place] # (Auto) (0.00-1.00) K/uL Eos # (Auto) (0.00-0.50) K/uL Baso # (Auto) (0.00-0.20) K/uL D-Dimer, Quantitative (0-400) ng/mL VBG pH (7.31-7.41) VBG pCO2 (41-51) mmHG VBG pO2 mmHG VBG HCO3 (23-28) mmol/L VBG Total CO2 mmol/L VBG O2 Saturation % VBG Base Excess ((-2)-3) mmol/L O2 Delivery Device Sodium (136-145) mmol/L Potassium (3.5-5.1) mmol/L Chloride (98-107) mmol/L Carbon Dioxide (21.0-32.0) mmol/L BUN (7-18) mg/dL Creatinine (0.51-1.17) mg/dL Est Cr Clr Drug Dosing mL/min Estimated GFR (MDRD) mL/min Glucose (74-106) mg/dL POC Glucose 277 H* (65-110) mg/dl Calcium (8.5-10.1) mg/dL Phosphorus (2.6-4.7) mg/dL Ammonia (11-32) umol/L Creatine Kinase (26-308) U/L Creatine Kinase Index (0.0-2.5) % CK-MB (CK-2) (0.00-3.60) ng/mL Troponin I (0.000-0.056) ng/mL C-Reactive Protein (<=0.9) mg/dL NT-Pro-B Natriuret Pep (0-125) pg/mL Claudio Results Last 24 Hours: Microbiology 11/10/18 13:05 Urine Culture - Final Urine, Catheterized NO GROWTH AFTER 2 DAYS Med Orders - Current: Current Medications Acetaminophen (Tylenol) 650 mg RECTAL Q4H PRN PRN Reason: Pain Dorzolamide HCl (Trusopt 2% Ophth Soln) 0 ml EYEBOTH BID [facility] Last Admin: 11/12/18 08:01 Dose: 1 drop Ceftriaxone Sodium 1 gm/ (Sodium Chloride) 100 mls @ 200 mls/hr IV Q12H [facility] Last Admin: 11/12/18 08:58 Dose: 200 mls/hr Metronidazole 500 mg/ Premix 100 mls @ 100 mls/hr IV Q8H [facility] Last Admin: 11/12/18 10:13 Dose: 100 mls/hr Sodium Chloride (Normal Saline) 1,000 mls @ 100 mls/hr IV ASDIRECTED [facility] Last Admin: 11/12/18 14:26 Dose: 100 mls/hr Insulin Glargine (Lantus) 20 unit SUBCUT Q12HR [facility] Insulin Human Lispro (Humalog) 0 unit SUBCUT QIDACANDBED [facility]; Protocol Last Admin: 11/12/18 11:30 Dose: 6 units Latanoprost (Xalatan 0.005% Ophth Soln) 0 ml EYEBOTH BEDTIME [facility] Last Admin: 11/11/18 20:29 Dose: 1 drop Metoprolol Tartrate (Lopressor) 5 mg IVPUSH Q6H [facility] Last Admin: 11/12/18 13:01 Dose: 5 mg Ondansetron HCl (Zofran) 4 mg IVPUSH Q6H PRN PRN Reason: Nausea/Vomiting Last Admin: 11/11/18 12:11 Dose: 4 mg Pantoprazole Sodium (Protonix Iv) 40 mg IVPUSH BEDTIME [facility] Last Admin: 11/11/18 20:21 Dose: 40 mg Sodium Chloride (Saline Flush) 10 ml FLUSH ASDIRECTED PRN PRN Reason: Keep Vein Open Last Admin: 11/12/18 13:02 Dose: 10 ml Sodium Chloride (Saline Flush) 10 ml FLUSH Q12HR [facility] Timolol Maleate (Timoptic 0.5% Ophth Soln) 0 ml EYEBOTH BID [facility] Last Admin: 11/12/18 08:01 Dose: 1 drop Discontinued Medications Acetaminophen (Tylenol) 650 mg PO Q4H PRN PRN Reason: Pain Allopurinol (Zyloprim) 100 mg PO DAILY [facility] Last Admin: 11/11/18 08:06 Dose: Not Given Cholecalciferol (Vitamin D3) 4,000 units PO DAILY [facility] Last Admin: 11/11/18 08:06 Dose: Not Given Divalproex Sodium (Divalproex Sodium) 500 mg PO BID [facility] Last Admin: 11/11/18 08:03 Dose: Not Given Enoxaparin Sodium (Lovenox) 100 mg SUBCUT Q24H [facility] Last Admin: 11/11/18 12:12 Dose: 100 mg Famotidine (Pepcid) 40 mg IVPUSH ONETIME ONE Stop: 11/10/18 09:59 Last Admin: 11/10/18 10:17 Dose: 40 mg Fenofibrate (Fenofibrate) 134 mg PO BEDTIME [facility] Last Admin: 11/10/18 20:37 Dose: Not Given Furosemide (Lasix) 40 mg IVPUSH Q8H [facility] Last Admin: 11/11/18 12:11 Dose: 40 mg Potassium Chloride 10 meq/ (Premix) 50 mls @ 50 mls/hr IV Q6H [facility] Last Admin: 11/12/18 11:28 Dose: 50 mls/hr Insulin Glargine (Lantus) 30 unit SUBCUT BEDTIME MARGY Insulin Glargine (Lantus) 40 unit SUBCUT QPM [facility] Last Admin: 11/10/18 20:39 Dose: Not Given Insulin Glargine (Lantus) 40 unit SUBCUT ONETIME ONE Stop: 11/10/18 18:14 Last Admin: 11/10/18 18:47 Dose: 40 units Insulin Glargine (Lantus) 20 unit SUBCUT BID [facility] Last Admin: 11/12/18 08:00 Dose: 20 units Insulin Human Lispro (Humalog) 14 unit SUBCUT ONETIME ONE Stop: 11/11/18 18:44 Insulin Human Lispro (Humalog) 14 unit SUBCUT ONETIME ONE Stop: 11/10/18 18:44 Last Admin: 11/10/18 19:11 Dose: 14 units Insulin Human Lispro (Humalog) 0 unit SUBCUT BIDAC [facility]; Protocol Insulin Human Regular (Humulin R) 10 unit IV ONETIME ONE Stop: 11/10/18 12:07 Last Admin: 11/10/18 13:35 Dose: 10 units Insulin Human Regular (Humulin R) 10 unit IV ONETIME ONE Stop: 11/10/18 14:56 Last Admin: 11/10/18 15:10 Dose: 10 units Insulin Lispro Protam/Lispro Human (Humalog Mix 75-25) 16 unit SUBCUT ONETIME ONE Stop: 11/10/18 21:01 Last Admin: 11/10/18 21:41 Dose: 16 units Lactobacillus Rhamnosus (Culturelle) 1 cap PO DAILY [facility] Last Admin: 11/11/18 08:03 Dose: Not Given Levothyroxine Sodium (Synthroid) 50 mcg PO DAILY [facility] Last Admin: 11/11/18 08:04 Dose: Not Given Melatonin (Melatonin) 3 mg PO BEDTIME [facility] Last Admin: 11/10/18 20:38 Dose: Not Given Metoprolol Tartrate (Lopressor) 25 mg PO BID [facility] Last Admin: 11/11/18 08:04 Dose: Not Given Non-Formulary Medication (Psyllium Husk [Metamucil]) 0.4 gm PO DAILY [facility] Last Admin: 11/11/18 13:15 Dose: Not Given Omeprazole (Omeprazole) 20 mg PO BIDAC [facility] Last Admin: 11/11/18 08:03 Dose: Not Given Potassium Chloride (Potassium Chloride Solution) 20 meq PO BID [facility] Last Admin: 11/11/18 13:15 Dose: Not Given Pravastatin Sodium (Pravachol) 40 mg PO BEDTIME [facility] Last Admin: 11/10/18 20:38 Dose: Not Given Risperidone (Risperidal) 2 mg PO BEDTIME [facility] Last Admin: 11/10/18 20:38 Dose: Not Given Risperidone (Risperidal) 1 mg PO BEDTIME [facility] Sodium Chloride (Saline Flush) 10 ml FLUSH Q12HR PRN PRN Reason: Keep Vein Open Last Admin: 11/11/18 03:34 Dose: 10 ml - Exam General: Alert, Cooperative, No Acute Distress HEENT: Mucous Membr. Moist/[place]: Trachea Midline, No JVD Lungs: Normal Respiratory Effort, Decreased Breath Sounds Cardiovascular: Regular Rate, Regular Rhythm GI/Abdominal Exam: Soft, Non-Tender, No Distention (Male) Exam: Deferred Extremities: Normal Inspection, Non-Tender Skin: Warm, Dry, Intact Neurological: No New Focal Deficit Psy/Mental Status: Alert, Other (flat affect) - Problem List & Annotations (1) Aspiration pneumonia SNOMED Code(s): 739742239 Code(s): J69.0 - PNEUMONITIS DUE TO INHALATION OF FOOD AND VOMIT Status: Acute Current Visit: Yes Qualifiers: Aspiration pneumonia type: due to vomit Laterality: unspecified laterality (2) Apnea SNOMED Code(s): 2113102, 735203144 Code(s): R06.81 - APNEA, NOT ELSEWHERE CLASSIFIED Status: Acute Priority : High Current Visit: Yes Onset Date: 11/09/18 Annotation/Comment:: No true apneic episodes in the emergency room or during initial phases of this hospitalization with more abdominal type breathing. Note baseline sinus tachycardia with no apparent chest pain or anginal complaints despite CHF. She does have some difficulty swallowing his medications with possible incomplete doses of his current Lopressor therapy. No significant EKG changes. Note NO CODE STATUS. Telephone consultation with Valerie from the [facility] in [place] with prior to admission and also this morning with no telemetry beds available in their facility. We did receive approval for continued admission and care in this facility. Stefanie Sandoval MD at [facility] in [place] was informed of the patient's admission and will resume his care later today. Continue observation status with transfer to the [facility] in [place] tomorrow, if bed is available. Standard rule out [place] orders have been negative artifactually elevated CK index secondary to a low baseline CK. No oxygen therapy is required at this time. (3) CHF (congestive heart failure) SNOMED Code(s): 26703980 Code(s): I50.9 - HEART FAILURE, UNSPECIFIED Status: Acute Priority: High Current Visit: Yes Onset Date: 11/10/18 Qualifiers: Heart failure type: unspecified Heart failure chronicity: acute Qualified Code(s): I50.9 - Heart failure, unspecified Annotation/Comment:: Continue IV Lasix therapy. 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 No Chest pain or anginal complaints with chest pain protocol not initiated in the emergency room. Note NO CODE STATUS with no further echocardiogram, cardiology workup, etc. (4) Dysphagia SNOMED Code(s): 39366097, 541519365 Code(s): R13.10 - DYSPHAGIA, UNSPECIFIED Status: Acute Priority: High Current Visit: Yes Onset Date: ~11/10/18 Qualifiers: Dysphagia type: unspecified Qualified Code(s): R13.10 - Dysphagia, unspecified Annotation/Comment:: Problems with oral medications as above with additional possible aspiration pneumonia secondary to his leukocytosis today. IV Rocephin and IV Flagyl initiated with repeat x-rays tomorrow. (5) Elevated d-dimer SNOMED Code(s): 061450759 Code(s): R79.89 - OTHER SPECIFIED ABNORMAL FINDINGS OF BLOOD CHEMISTRY Status: Acute Priority: High Current Visit: Yes Onset Date: 11/10/18 Annotation/Comment:: Newly diagnosed on admission. CT scan not available at this time secondary to equipment failure. Note mildly progressive renal insufficiency and NO CODE STATUS. Venous Doppler studies of the lower extremities yesterday were normal. Continue high-dose IV Lovenox for now. (6) Hypoalbuminemia SNOMED Code(s): 604044086 Code(s): E88.09 - [facility] DISORDERS OF PLASMA-PROTEIN METABOLISM, NEC Status: Acute Priority: Medium Current Visit: Yes Onset Date: 11/10/18 Annotation/Comment:: Observe for now. Consider high protein Glucerna supplements. (7) Hypomagnesemia SNOMED Code(s): 150439653 Code(s): E83.42 - HYPOMAGNESEMIA Status: Acute Priority: Medium Current Visit: Yes Onset Date: 11/10/18 Annotation/Comment:: Observe for now secondary to his renal insufficiency. (8) Hyponatremia SNOMED Code(s): 17645084 Code(s): E87.1 - HYPO-OSMOLALITY AND HYPONATREMIA Status: Acute Priority : High Current Visit: Yes Onset Date: 11/10/18 Annotation/Comment:: Secondary to his CHF and improved this morning. IV Lasix therapy as above. Hyponatremia may be partial etiology to his increased lethargy. Note recent medication changes, CT scan of the head, EEG, etc. at the [facility] in [place] as above. (9) Renal insufficiency SNOMED Code(s): 864363626, 644698422 Code(s): N28.9 - DISORDER OF KIDNEY AND URETER, UNSPECIFIED Status: Acute Priority: High Current Visit: Yes Onset Date: 11/10/18 Annotation/ Comment:: Newly diagnosed probable diabetic nephropathy. IV Lasix therapy with caution as above. Continue to observe closely by his regular providers at the accepting physicians. (10) Hypertension SNOMED Code(s): 23353331 Code(s): I10 - ESSENTIAL (PRIMARY) HYPERTENSION Status: Chronic Priority : Medium Current Visit: Yes Qualifiers: Hypertension type: essential hypertension Qualified Code(s): I10 - Essential (primary) hypertension Annotation/Comment:: Good control in the emergency room and during hospitalization. (11) IDDM (insulin dependent diabetes mellitus) SNOMED Code(s): 74062721 Code(s): E11.9 - TYPE 2 DIABETES MELLITUS WITHOUT COMPLICATIONS; Z79.4 - USP (CURRENT) USE OF INSULIN Status: Chronic Priority: High Current Visit: Yes Annotation/Comment:: Hyperglycemia extremely refractory to adequate therapy likely secondary to high-dose Risperdal, which also is a factor in his CHF. Accu-Cheks improved this morning with 2 doses of Low-dose IV Humulin regular insulin and an additional extra dose of Humalog mix required yesterday. Medication adjustments during this hospitalization including increased however now split regimen of his Lantus with continuation of subcutaneous sliding scale. Glycosylated hemoglobin morning is 8.2%. Note mildly elevated ketones on admission however normal this morning. (12) Psychosis SNOMED Code(s): 05611162 Code(s): F29 - UNSP PSYCHOSIS NOT DUE TO A SUBSTANCE OR KNOWN PHYSIOL COND Status: Chronic Priority: High Current Visit: Yes Qualifiers: Psychosis type: schizoaffective disorder Schizoaffective disorder type: bipolar Qualified Code(s): F25.0 - Schizoaffective disorder, bipolar type Annotation/Comment:: [facility] [place] during recent hospitalization as per emergency room note. Secondary to his CHF, refractory hyperglycemia, and significant sedation his Risperdal will be decreased starting this evening. Continue to observe closely. (13) Rheumatoid arthritis SNOMED Code(s): 58028796 Code(s): M06.9 - RHEUMATOID ARTHRITIS, UNSPECIFIED Status: Chronic Priority: Medium Current Visit: Yes Qualifiers: Rheumatoid arthritis location: multiple sites Rheumatoid factor presence: unspecified presence Qualified Code(s): M06.9 - Rheumatoid arthritis, unspecified Annotation/Comment:: Stable by history (14) Chronic renal disease, stage 4, severely decreased glomerular filtration rate (GFR) between 15-29 mL/min/1.73 square meter SNOMED Code(s): 216749451 Code(s): N18.4 - CHRONIC KIDNEY DISEASE, STAGE 4 (SEVERE) Status: Acute Priority: High Current Visit: Yes (15) History of traumatic brain injury SNOMED Code(s): 66989671477690, 84055362779474 Code(s): Z87.820 - PERSONAL HISTORY OF TRAUMATIC BRAIN INJURY Status: Acute Priority: Medium Current Visit: Yes - Problem List Review Problem List Initiated/Reviewed/Updated: Yes - My Orders Last 24 Hours: My Active Orders 11/11/18 20:00 Pantoprazole [ProTONIX IV] 40 mg IVPUSH BEDTIME 11/11/18 Dinner Nothing per Oral Now Diet [DIET] 11/12/18 15:17 Discontinue Telemetry Monitoring [Cardiac Monitoring Discontinue] [RC] Click to Edit 11/12/18 20:00 Insulin Glarg,Human.Rec.Analog [LantUS] 20 unit SUBCUT Q12HR Sodium Chloride 0.9% [Saline Flush] 10 ml FLUSH Q12HR 11/13/18 05:11 CBC WITH AUTO DIFF [HEME] DAILY CMP [COMPREHENSIVE METABOLIC PN,CMP] [CHEM] DAILY CRP [C-REACTIVE PROTEIN] [CHEM] DAILY SEDIMENTATION RATE AUTO [HEME] Routine 11/14/18 05:11 CBC WITH AUTO DIFF [HEME] DAILY CMP [COMPREHENSIVE METABOLIC PN,CMP] [CHEM] DAILY CRP [C-REACTIVE PROTEIN] [CHEM] DAILY 11/15/18 05:11 CBC WITH AUTO DIFF [HEME] DAILY CMP [COMPREHENSIVE METABOLIC PN,CMP] [CHEM] DAILY CRP [C-REACTIVE PROTEIN] [CHEM] DAILY - Assessment Assessment:: As above - Plan Plan:: As above. Extensive precautions were given to the patient, who is in agreement with the treatment plan. [facility] assumes care as above 11/12/18 Sheets Michael FERGUSON He is more alert today. He has eye contact and does answer most of my questions slowly. Nurses were able to get him out of bed to chair which was not possible yesterday. Creatinine improving today. Able to swallow better today. I talked to him about transferring to [facility] and he says no. He is okay with staying here in the hospital in [place]. His sister WILIAN also okay with him staying in [place] and not transferring to [facility].
[2018-11-12] MEDS: Pantoprazole 40 MG Vial IVPUSH SCH (20:16)
[2018-11-12] MEDS: Sodium Chloride 0.9% 10 ML Syringe FLUSH SCH (20:18)
[2018-11-12] MEDS: Latanoprost 0.005% Ophth Soln 2.5 ML Bottle EYEBOTH SCH (20:19)
[2018-11-13] MEDS: Metoprolol Tartrate 5 MG/5 ML SDV IVPUSH SCH ×4 (01:21→20:36)
[2018-11-13] MEDS: metroNIDAZOLE/Normal Saline 500 MG in Premix Bag 1 BAG IV SCH ×3 (01:21→17:40)
[2018-11-13] MEDS: Sodium Chloride 0.9% 10 ML Syringe FLUSH PRN (01:22)
[2018-11-13] MEDS: Sodium Chloride 0.9% 1,000 ML IV SCH ×2 (02:55→14:24)
[2018-11-13] MEDS: Insulin Lispro 100 Units/ML 3 ML Vial SUBCUT SCH ×4 (07:25→20:39)
[2018-11-13] MEDS: Insulin Glarg,Human.Rec.Analog 100 UNIT/ML ML SUBCUT SCH ×2 (07:26→20:43)
[2018-11-13] MEDS: Sodium Chloride 0.9% 10 ML Syringe FLUSH SCH ×2 (07:27→20:39)
[2018-11-13] MEDS: Dorzolamide 2% Ophth Soln 10 ML Bottle EYEBOTH SCH ×2 (07:27→17:42)
[2018-11-13] MEDS: Timolol Maleate 0.5% Ophth Soln 5 ML Bottle EYEBOTH SCH ×2 (07:27→17:43)
[2018-11-13] MEDS: cefTRIAXone 1 GM in Sodium Chloride 0.9% 100 ML IV SCH ×2 (08:03→20:47)
--- NOTE | 2018-11-13 11:45 | PCM.PN ---
- General Info Date of Service: 11/13/18 Admission Dx/Problem (Free Text): 1. CHF 2. Decompensated IDDM 3. Sedation - Review of Systems General: Reports: Weakness, Appetite (doesn't want to eat lunch) HEENT: Reports: No Symptoms Pulmonary: Reports: No Symptoms Cardiovascular: Reports: No Symptoms Gastrointestinal: Reports: Abdominal Pain (says no pain but "a little sensitive "), Decreased Appetite Genitourinary: Reports: No Symptoms Musculoskeletal: Reports: No Symptoms Skin: Reports: No Symptoms Neurological: Reports: No Symptoms Psychiatric: Reports: No Symptoms - Patient Data Vitals - Most Recent: Last Vital Signs Temp 97.7 F 11/13/18 06:09 Pulse 84 11/13/18 07:25 Resp 15 11/13/18 06:09 BP 134/69 11/13/18 07:25 Pulse Ox 100 11/13/18 06:09 Weight - Most Recent: 199 lb I&O - Last 24 Hours: Intake & Output 11/12/18 11/13/18 11/13/18 22:59 06:59 14:59 Intake Total 100 2624 120 Balance 100 2624 120 Lab Results Last 24 Hours: Laboratory Results - last 24 hr 11/12/18 11/12/18 11/13/18 Range/Units 17:16 20:15 06:05 WBC (4.0-10.2) K/uL RBC (4.33-5.41) M/uL Hgb (13.1-16.8) g/dL Hct (39.0-49.0) % MCV (84.0-98.0) fL MCH (28.2-33.3) pg MCHC (31.7-36.0) g/dL RDW (11.2-14.1) % Plt Count (150-350) K/uL Neut % (Auto) (45.0-80.0) % Lymph % (Auto) (10.0-50.0) % [place] % (Auto) (2.0-14.0) % Eos % (Auto) (0.0-5.0) % Baso % (Auto) (0.0-2.0) % Neut # (Auto) (1.40-7.00) K/uL Lymph # (Auto) (0.50-3.50) K/uL [place] # (Auto) (0.00-1.00) K/uL Eos # (Auto) (0.00-0.50) K/uL Baso # (Auto) (0.00-0.20) K/uL ESR (0-20) mm/hr Sodium (136-145) mmol/L Potassium (3.5-5.1) mmol/L Chloride (98-107) mmol/L Carbon Dioxide (21.0-32.0) mmol/L BUN (7-18) mg/dL Creatinine (0.51-1.17) mg/dL Est Cr Clr Drug Dosing mL/min Estimated GFR (MDRD) mL/min Glucose (74-106) mg/dL POC Glucose 187 H 232 H 221 H (65-110) mg/dl Calcium (8.5-10.1) mg/dL Total Bilirubin (0.2-1.0) mg/dL AST (15-37) U/L ALT (12-78) U/L Alkaline Phosphatase (46-116) IU/L C-Reactive Protein (<=0.9) mg/dL Total Protein (6.4-8.2) g/dL Albumin (3.4-5.0) g/dL Vitamin B12 (193-986) pg/mL Folate (8.6-58.9) ng/mL 11/13/18 11/13/18 11/13/18 Range/Units 07:20 07:20 11:05 WBC 8.8 (4.0-10.2) K/uL RBC 3.03 L (4.33-5.41) M/uL Hgb 10.1 L D (13.1-16.8) g/dL Hct 31.6 L (39.0-49.0) % MCV 104.3 H (84.0-98.0) fL MCH 33.3 (28.2-33.3) pg MCHC 32.0 (31.7-36.0) g/dL RDW 14.2 H (11.2-14.1) % Plt Count 310 (150-350) K/uL Neut % (Auto) 69.6 (45.0-80.0) % Lymph % (Auto) 16.2 (10.0-50.0) % [place] % (Auto) 11.4 (2.0-14.0) % Eos % (Auto) 2.6 (0.0-5.0) % Baso % (Auto) 0.2 (0.0-2.0) % Neut # (Auto) 6.09 (1.40-7.00) K/uL Lymph # (Auto) 1.42 (0.50-3.50) K/uL [place] # (Auto) 1.00 (0.00-1.00) K/uL Eos # (Auto) 0.23 (0.00-0.50) K/uL Baso # (Auto) 0.02 (0.00-0.20) K/uL ESR 111 H (0-20) mm/hr Sodium 141 (136-145) mmol/L Potassium 4.0 (3.5-5.1) mmol/L Chloride 108 H (98-107) mmol/L Carbon Dioxide 25.4 (21.0-32.0) mmol/L BUN 34 H (7-18) mg/dL Creatinine 1.27 H (0.51-1.17) mg/dL Est Cr Clr Drug Dosing 57.69 mL/min Estimated GFR (MDRD) 58 mL/min Glucose 212 H (74-106) mg/dL POC Glucose 233 H (65-110) mg/dl Calcium 8.3 L (8.5-10.1) mg/dL Total Bilirubin 0.5 (0.2-1.0) mg/dL AST 26 (15-37) U/L ALT 15 (12-78) U/L Alkaline Phosphatase 68 (46-116) IU/L C-Reactive Protein 18.9 H (<=0.9) mg/dL Total Protein 6.6 (6.4-8.2) g/dL Albumin 2.0 L (3.4-5.0) g/dL Vitamin B12 532 (193-986) pg/mL Folate 7.4 L (8.6-58.9) ng/mL Claudio Results Last 24 Hours: Microbiology 11/10/18 13:05 Urine Culture - Final Urine, Catheterized NO GROWTH AFTER 2 DAYS Med Orders - Current: Current Medications Acetaminophen (Tylenol) 650 mg RECTAL Q4H PRN PRN Reason: Pain Dorzolamide HCl (Trusopt 2% Ophth Soln) 0 ml EYEBOTH BID [facility] Last Admin: 11/13/18 07:27 Dose: 1 drop Ceftriaxone Sodium 1 gm/ (Sodium Chloride) 100 mls @ 200 mls/hr IV Q12H [facility] Last Admin: 11/13/18 08:03 Dose: 200 mls/hr Metronidazole 500 mg/ Premix 100 mls @ 100 mls/hr IV Q8H [facility] Last Admin: 11/13/18 09:16 Dose: 100 mls/hr Sodium Chloride (Normal Saline) 1,000 mls @ 100 mls/hr IV ASDIRECTED [facility] Last Admin: 11/13/18 02:55 Dose: 100 mls/hr Insulin Glargine (Lantus) 20 unit SUBCUT Q12HR [facility] Last Admin: 11/13/18 07:26 Dose: 20 unit Insulin Human Lispro (Humalog) 0 unit SUBCUT QIDACANDBED [facility]; Protocol Last Admin: 11/13/18 07:25 Dose: 4 units Latanoprost (Xalatan 0.005% Ophth Soln) 0 ml EYEBOTH BEDTIME [facility] Last Admin: 11/12/18 20:19 Dose: 1 drop Metoprolol Tartrate (Lopressor) 5 mg IVPUSH Q6H [facility] Last Admin: 11/13/18 07:25 Dose: 5 mg Ondansetron HCl (Zofran) 4 mg IVPUSH Q6H PRN PRN Reason: Nausea/Vomiting Last Admin: 11/11/18 12:11 Dose: 4 mg Pantoprazole Sodium (Protonix Iv) 40 mg IVPUSH BEDTIME [facility] Last Admin: 11/12/18 20:16 Dose: 40 mg Sodium Chloride (Saline Flush) 10 ml FLUSH ASDIRECTED PRN PRN Reason: Keep Vein Open Last Admin: 11/13/18 01:22 Dose: 10 ml Sodium Chloride (Saline Flush) 10 ml FLUSH Q12HR [facility] Last Admin: 11/13/18 07:27 Dose: 10 ml Timolol Maleate (Timoptic 0.5% Ophth Soln) 0 ml EYEBOTH BID [facility] Last Admin: 11/13/18 07:27 Dose: 1 drop Discontinued Medications Acetaminophen (Tylenol) 650 mg PO Q4H PRN PRN Reason: Pain Allopurinol (Zyloprim) 100 mg PO DAILY [facility] Last Admin: 11/11/18 08:06 Dose: Not Given Cholecalciferol (Vitamin D3) 4,000 units PO DAILY [facility] Last Admin: 11/11/18 08:06 Dose: Not Given Divalproex Sodium (Divalproex Sodium) 500 mg PO BID [facility] Last Admin: 11/11/18 08:03 Dose: Not Given Enoxaparin Sodium (Lovenox) 100 mg SUBCUT Q24H [facility] Last Admin: 11/11/18 12:12 Dose: 100 mg Famotidine (Pepcid) 40 mg IVPUSH ONETIME ONE Stop: 11/10/18 09:59 Last Admin: 11/10/18 10:17 Dose: 40 mg Fenofibrate (Fenofibrate) 134 mg PO BEDTIME [facility] Last Admin: 11/10/18 20:37 Dose: Not Given Furosemide (Lasix) 40 mg IVPUSH Q8H [facility] Last Admin: 11/11/18 12:11 Dose: 40 mg Potassium Chloride 10 meq/ (Premix) 50 mls @ 50 mls/hr IV Q6H [facility] Last Admin: 11/12/18 11:28 Dose: 50 mls/hr Insulin Glargine (Lantus) 30 unit SUBCUT BEDTIME [facility] Insulin Glargine (Lantus) 40 unit SUBCUT QPM [facility] Last Admin: 11/10/18 20:39 Dose: Not Given Insulin Glargine (Lantus) 40 unit SUBCUT ONETIME ONE Stop: 11/10/18 18:14 Last Admin: 11/10/18 18:47 Dose: 40 units Insulin Glargine (Lantus) 20 unit SUBCUT BID [facility] Last Admin: 11/12/18 08:00 Dose: 20 units Insulin Human Lispro (Humalog) 14 unit SUBCUT ONETIME ONE Stop: 11/11/18 18:44 Insulin Human Lispro (Humalog) 14 unit SUBCUT ONETIME ONE Stop: 11/10/18 18:44 Last Admin: 11/10/18 19:11 Dose: 14 units Insulin Human Lispro (Humalog) 0 unit SUBCUT BIDAC [facility]; Protocol Insulin Human Regular (Humulin R) 10 unit IV ONETIME ONE Stop: 11/10/18 12:07 Last Admin: 11/10/18 13:35 Dose: 10 units Insulin Human Regular (Humulin R) 10 unit IV ONETIME ONE Stop: 11/10/18 14:56 Last Admin: 11/10/18 15:10 Dose: 10 units Insulin Lispro Protam/Lispro Human (Humalog Mix 75-25) 16 unit SUBCUT ONETIME ONE Stop: 11/10/18 21:01 Last Admin: 11/10/18 21:41 Dose: 16 units Lactobacillus Rhamnosus (Culturelle) 1 cap PO DAILY [facility] Last Admin: 11/11/18 08:03 Dose: Not Given Levothyroxine Sodium (Synthroid) 50 mcg PO DAILY [facility] Last Admin: 11/11/18 08:04 Dose: Not Given Melatonin (Melatonin) 3 mg PO BEDTIME [facility] Last Admin: 11/10/18 20:38 Dose: Not Given Metoprolol Tartrate (Lopressor) 25 mg PO BID [facility] Last Admin: 11/11/18 08:04 Dose: Not Given Non-Formulary Medication (Psyllium Husk [Metamucil]) 0.4 gm PO DAILY [facility] Last Admin: 11/11/18 13:15 Dose: Not Given Omeprazole (Omeprazole) 20 mg PO BIDAC [facility] Last Admin: 11/11/18 08:03 Dose: Not Given Potassium Chloride (Potassium Chloride Solution) 20 meq PO BID [facility] Last Admin: 11/11/18 13:15 Dose: Not Given Pravastatin Sodium (Pravachol) 40 mg PO BEDTIME [facility] Last Admin: 11/10/18 20:38 Dose: Not Given Risperidone (Risperidal) 2 mg PO BEDTIME [facility] Last Admin: 11/10/18 20:38 Dose: Not Given Risperidone (Risperidal) 1 mg PO BEDTIME [facility] Sodium Chloride (Saline Flush) 10 ml FLUSH Q12HR PRN PRN Reason: Keep Vein Open Last Admin: 11/11/18 03:34 Dose: 10 ml - Exam General: Alert, Cooperative, No Acute Distress HEENT: Pupils Reactive Neck: Trachea Midline Lungs: Clear to Auscultation, Decreased Breath Sounds Cardiovascular: Regular Rate, Regular Rhythm GI/Abdominal Exam: Normal Bowel Sounds, Soft, Non-Tender, No Distention (Male) Exam: Deferred Back Exam: Normal Inspection Extremities: Normal Inspection Skin: Warm, Dry, Intact Neurological: No New Focal Deficit Psy/Mental Status: Alert (o), Other (more alert today, affect and demeanor calm , says he is feeling a little better and promised his sister Mercedes he will get better) - Problem List & Annotations (1) Schizophrenia SNOMED Code(s): 14399477 Code(s): F20.9 - SCHIZOPHRENIA, UNSPECIFIED Status: Acute Current Visit: Yes (2) Dementia SNOMED Code(s): 19889980 Code(s): F03.90 - UNSPECIFIED DEMENTIA WITHOUT BEHAVIORAL DISTURBANCE Status: Acute Current Visit: Yes (3) Delirium SNOMED Code(s): 8414895 Code(s): R41.0 - DISORIENTATION, UNSPECIFIED Status: Acute Current Visit : Yes - Problem List Review Problem List Initiated/Reviewed/Updated: Yes - Assessment Assessment:: As above - Plan Plan:: As above. Extensive precautions were given to the patient, who is in agreement with the treatment plan. [facility] assumes care as above 11/12/18 Sheets Michael FERGUSON He is more alert today. He has eye contact and does answer most of my questions slowly. Nurses were able to get him out of bed to chair which was not possible yesterday. Creatinine improving today. Able to swallow better today. I talked to him about transferring to [facility] hospital and he says no. He is okay with staying here in the hospital in [place]. His sister WILIAN also okay with him staying in [place] and not transferring to [facility]. 11-13-18 Jessica Arnett PA-C More alert again today, and more talkative, but still calm with appropriate behavior and responses. Labs reviewed, no changes made. Reassurance given to patient that he is getting better. Will monitor mood and behaviors closely to consider need to restart antipsych med.
[2018-11-13] MEDS: Pantoprazole 40 MG Vial IVPUSH SCH (20:38)
[2018-11-13] MEDS: Latanoprost 0.005% Ophth Soln 2.5 ML Bottle EYEBOTH SCH (20:42)
[2018-11-14] MEDS: Metoprolol Tartrate 5 MG/5 ML SDV IVPUSH SCH ×4 (01:40→18:02)
[2018-11-14] MEDS: Sodium Chloride 0.9% 10 ML Syringe FLUSH PRN ×3 (01:42→18:03)
[2018-11-14] MEDS: metroNIDAZOLE/Normal Saline 500 MG in Premix Bag 1 BAG IV SCH ×3 (01:44→17:00)
[2018-11-14] MEDS: Sodium Chloride 0.9% 1,000 ML IV SCH (01:46)
[2018-11-14] MEDS: Ondansetron 4 MG/2 ML SDV IVPUSH PRN (07:30)
[2018-11-14] MEDS: Insulin Lispro 100 Units/ML 3 ML Vial SUBCUT SCH ×4 (07:47→20:08)
[2018-11-14] MEDS: Dorzolamide 2% Ophth Soln 10 ML Bottle EYEBOTH SCH ×2 (07:48→17:01)
[2018-11-14] MEDS: Sodium Chloride 0.9% 10 ML Syringe FLUSH SCH ×2 (07:48→20:10)
[2018-11-14] MEDS: Timolol Maleate 0.5% Ophth Soln 5 ML Bottle EYEBOTH SCH ×2 (07:48→17:00)
[2018-11-14] MEDS: Folic Acid 1 MG Tab PO SCH (07:48)
[2018-11-14] MEDS: cefTRIAXone 1 GM in Sodium Chloride 0.9% 100 ML IV SCH ×2 (08:20→20:08)
[2018-11-14 08:45] LABS: CHLORIDE,CL 105 mmol/L (98-107); SODIUM,NA 139 mmol/L (136-145)
[2018-11-14] MEDS: Insulin Glarg,Human.Rec.Analog 100 UNIT/ML ML SUBCUT SCH ×2 (08:50→20:09)
[2018-11-14] MEDS ORDERED: Sodium Chloride 0.9% 1,000 ML IV SCH (10:30)
--- NOTE | 2018-11-14 10:44 | PCM.PN ---
- General Info Date of Service: 11/14/18 Admission Dx/Problem (Free Text): 1. CHF 2. Decompensated IDDM 3. Sedation Functional Status: Reports: Pain Controlled, Tolerating Diet, Urinating - Review of Systems General: Reports: Fatigue (says "tired" when I wake him for exam) HEENT: Reports: No Symptoms Pulmonary: Reports: No Symptoms Cardiovascular: Reports: No Symptoms Gastrointestinal: Reports: No Symptoms Genitourinary: Reports: No Symptoms Musculoskeletal: Reports: No Symptoms Skin: Reports: No Symptoms Neurological: Reports: No Symptoms Psychiatric: Reports: No Symptoms - Patient Data Vitals - Most Recent: Last Vital Signs Temp 97.7 F 11/14/18 07:55 Pulse 78 11/14/18 07:55 Resp 18 11/14/18 07:55 BP 127/57 L 11/14/18 07:55 Pulse Ox 99 11/14/18 07:55 Weight - Most Recent: 199 lb I&O - Last 24 Hours: Intake & Output 11/13/18 11/14/18 11/14/18 22:59 06:59 14:59 Intake Total 1348 1200 360 Output Total 350 Balance 998 1200 360 Lab Results Last 24 Hours: Laboratory Results - last 24 hr 11/13/18 11/13/18 11/13/18 Range/Units 11:05 17:06 20:27 WBC (4.0-10.2) K/uL RBC (4.33-5.41) M/uL Hgb (13.1-16.8) g/dL Hct (39.0-49.0) % MCV (84.0-98.0) fL MCH (28.2-33.3) pg MCHC (31.7-36.0) g/dL RDW (11.2-14.1) % Plt Count (150-350) K/uL Neut % (Auto) (45.0-80.0) % Lymph % (Auto) (10.0-50.0) % [place] % (Auto) (2.0-14.0) % Eos % (Auto) (0.0-5.0) % Baso % (Auto) (0.0-2.0) % Neut # (Auto) (1.40-7.00) K/uL Lymph # (Auto) (0.50-3.50) K/uL [place] # (Auto) (0.00-1.00) K/uL Eos # (Auto) (0.00-0.50) K/uL Baso # (Auto) (0.00-0.20) K/uL Sodium (136-145) mmol/L Potassium (3.5-5.1) mmol/L Chloride (98-107) mmol/L Carbon Dioxide (21.0-32.0) mmol/L BUN (7-18) mg/dL Creatinine (0.51-1.17) mg/dL Est Cr Clr Drug Dosing mL/min Estimated GFR (MDRD) mL/min Glucose (74-106) mg/dL POC Glucose 233 H 207 H 207 H (65-110) mg/dl Calcium (8.5-10.1) mg/dL Total Bilirubin (0.2-1.0) mg/dL AST (15-37) U/L ALT (12-78) U/L Alkaline Phosphatase (46-116) IU/L C-Reactive Protein (<=0.9) mg/dL Total Protein (6.4-8.2) g/dL Albumin (3.4-5.0) g/dL 11/14/18 11/14/18 11/14/18 Range/Units 07:13 07:30 07:30 WBC 8.3 (4.0-10.2) K/uL RBC 2.95 L (4.33-5.41) M/uL Hgb 9.7 L (13.1-16.8) g/dL Hct 30.0 L (39.0-49.0) % MCV 101.7 H (84.0-98.0) fL MCH 32.9 (28.2-33.3) pg MCHC 32.3 (31.7-36.0) g/dL RDW 13.6 (11.2-14.1) % Plt Count 318 (150-350) K/uL Neut % (Auto) 61.0 (45.0-80.0) % Lymph % (Auto) 22.6 (10.0-50.0) % [place] % (Auto) 11.5 (2.0-14.0) % Eos % (Auto) 4.5 (0.0-5.0) % Baso % (Auto) 0.4 (0.0-2.0) % Neut # (Auto) 5.07 (1.40-7.00) K/uL Lymph # (Auto) 1.87 (0.50-3.50) K/uL [place] # (Auto) 0.95 (0.00-1.00) K/uL Eos # (Auto) 0.37 (0.00-0.50) K/uL Baso # (Auto) 0.03 (0.00-0.20) K/uL Sodium 139 (136-145) mmol/L Potassium 3.5 (3.5-5.1) mmol/L Chloride 105 (98-107) mmol/L Carbon Dioxide 25.3 (21.0-32.0) mmol/L BUN 23 H (7-18) mg/dL Creatinine 1.08 (0.51-1.17) mg/dL Est Cr Clr Drug Dosing 67.84 mL/min Estimated GFR (MDRD) > 60 mL/min Glucose 91 (74-106) mg/dL POC Glucose 85 (65-110) mg/dl Calcium 8.4 L (8.5-10.1) mg/dL Total Bilirubin 0.5 (0.2-1.0) mg/dL AST 30 (15-37) U/L ALT 15 (12-78) U/L Alkaline Phosphatase 67 (46-116) IU/L C-Reactive Protein 11.8 H (<=0.9) mg/dL Total Protein 6.3 L (6.4-8.2) g/dL Albumin 2.0 L (3.4-5.0) g/dL Med Orders - Current: Current Medications Acetaminophen (Tylenol) 650 mg RECTAL Q4H PRN PRN Reason: Pain Dorzolamide HCl (Trusopt 2% Ophth Soln) 0 ml EYEBOTH BID [facility] Last Admin: 11/14/18 07:48 Dose: 1 drop Folic Acid (Folic Acid) 1 mg PO DAILY [facility] Last Admin: 11/14/18 07:48 Dose: 1 mg Ceftriaxone Sodium 1 gm/ (Sodium Chloride) 100 mls @ 200 mls/hr IV Q12H [facility] Last Admin: 11/14/18 08:20 Dose: 200 mls/hr Metronidazole 500 mg/ Premix 100 mls @ 100 mls/hr IV Q8H [facility] Last Admin: 11/14/18 09:39 Dose: 100 mls/hr Insulin Glargine (Lantus) 20 unit SUBCUT Q12HR [facility] Last Admin: 11/14/18 08:50 Dose: 20 unit Insulin Human Lispro (Humalog) 0 unit SUBCUT QIDACANDBED [facility]; Protocol Last Admin: 11/14/18 07:47 Dose: Not Given Latanoprost (Xalatan 0.005% Ophth Soln) 0 ml EYEBOTH BEDTIME [facility] Last Admin: 11/13/18 20:42 Dose: 1 drop Metoprolol Tartrate (Lopressor) 2.5 mg IVPUSH Q6H [facility] Last Admin: 11/14/18 07:47 Dose: 2.5 mg Ondansetron HCl (Zofran) 4 mg IVPUSH Q6H PRN PRN Reason: Nausea/Vomiting Last Admin: 11/14/18 07:30 Dose: 4 mg Pantoprazole Sodium (Protonix Iv) 40 mg IVPUSH BEDTIME [facility] Last Admin: 11/13/18 20:38 Dose: 40 mg Sodium Chloride (Saline Flush) 10 ml FLUSH ASDIRECTED PRN PRN Reason: Keep Vein Open Last Admin: 11/14/18 01:42 Dose: 10 ml Sodium Chloride (Saline Flush) 10 ml FLUSH Q12HR [facility] Last Admin: 11/14/18 07:48 Dose: 10 ml Timolol Maleate (Timoptic 0.5% Ophth Soln) 0 ml EYEBOTH BID [facility] Last Admin: 11/14/18 07:48 Dose: 1 drop Discontinued Medications Acetaminophen (Tylenol) 650 mg PO Q4H PRN PRN Reason: Pain Allopurinol (Zyloprim) 100 mg PO DAILY [facility] Last Admin: 11/11/18 08:06 Dose: Not Given Cholecalciferol (Vitamin D3) 4,000 units PO DAILY [facility] Last Admin: 11/11/18 08:06 Dose: Not Given Divalproex Sodium (Divalproex Sodium) 500 mg PO BID [facility] Last Admin: 11/11/18 08:03 Dose: Not Given Enoxaparin Sodium (Lovenox) 100 mg SUBCUT Q24H [facility] Last Admin: 11/11/18 12:12 Dose: 100 mg Famotidine (Pepcid) 40 mg IVPUSH ONETIME ONE Stop: 11/10/18 09:59 Last Admin: 11/10/18 10:17 Dose: 40 mg Fenofibrate (Fenofibrate) 134 mg PO BEDTIME [facility] Last Admin: 11/10/18 20:37 Dose: Not Given Furosemide (Lasix) 40 mg IVPUSH Q8H [facility] Last Admin: 11/11/18 12:11 Dose: 40 mg Potassium Chloride 10 meq/ (Premix) 50 mls @ 50 mls/hr IV Q6H [facility] Last Admin: 11/12/18 11:28 Dose: 50 mls/hr Sodium Chloride (Normal Saline) 1,000 mls @ 100 mls/hr IV ASDIRECTED [facility] Last Admin: 11/14/18 01:46 Dose: 100 mls/hr Sodium Chloride (Normal Saline) 1,000 mls @ 50 mls/hr IV ASDIRECTED [facility] Insulin Glargine (Lantus) 30 unit SUBCUT BEDTIME [facility] Insulin Glargine (Lantus) 40 unit SUBCUT QPM [facility] Last Admin: 11/10/18 20:39 Dose: Not Given Insulin Glargine (Lantus) 40 unit SUBCUT ONETIME ONE Stop: 11/10/18 18:14 Last Admin: 11/10/18 18:47 Dose: 40 units Insulin Glargine (Lantus) 20 unit SUBCUT BID [facility] Last Admin: 11/12/18 08:00 Dose: 20 units Insulin Human Lispro (Humalog) 14 unit SUBCUT ONETIME ONE Stop: 11/11/18 18:44 Insulin Human Lispro (Humalog) 14 unit SUBCUT ONETIME ONE Stop: 11/10/18 18:44 Last Admin: 11/10/18 19:11 Dose: 14 units [facility]ulin [facility]) [facility] Protocol Insulin Human Regular (Humulin R) 10 unit IV ONETIME ONE Stop: 11/10/18 12:07 Last Admin: 11/10/18 13:35 Dose: 10 units Insulin Human Regular (Humulin R) 10 unit IV ONETIME ONE Stop: 11/10/18 14:56 Last Admin: 11/10/18 15:10 Dose: 10 units Insulin Lispro Protam/Lispro Human (Humalog Mix 75-25) 16 unit SUBCUT ONETIME ONE Stop: 11/10/18 21:01 Last Admin: 11/10/18 21:41 Dose: 16 units Lactobacillus Rhamnosus (Culturelle) 1 cap PO DAILY [facility] Last Admin: 11/11/18 08:03 Dose: Not Given Levothyroxine Sodium (Synthroid) 50 mcg PO DAILY [facility] Last Admin: 11/11/18 08:04 Dose: Not Given Melatonin (Melatonin) 3 mg PO BEDTIME [facility] Last Admin: 11/10/18 20:38 Dose: Not Given Metoprolol Tartrate (Lopressor) 25 mg PO BID [facility] Last Admin: 11/11/18 08:04 Dose: Not Given Metoprolol Tartrate (Lopressor) 5 mg IVPUSH Q6H [facility] Last Admin: 11/13/18 20:36 Dose: Not Given Non-Formulary Medication (Psyllium Husk [Metamucil]) 0.4 gm PO DAILY [facility] Last Admin: 11/11/18 13:15 Dose: Not Given [facility]epraz[facility]) [facility] Last Admin: 11/11/18 08:03 Dose: Not Given Potassium Chloride (Potassium Chloride Solution) 20 meq PO BID [facility] Last Admin: 11/11/18 13:15 Dose: Not Given Pravastatin Sodium (Pravachol) 40 mg PO BEDTIME [facility] Last Admin: 11/10/18 20:38 Dose: Not Given Risperidone (Risperidal) 2 mg PO BEDTIME [facility] Last Admin: 11/10/18 20:38 Dose: Not Given Risperidone (Risperidal) 1 mg PO BEDTIME [facility] Sodium Chloride (Saline Flush) 10 ml FLUSH Q12HR PRN PRN Reason: Keep Vein Open Last Admin: 11/11/18 03:34 Dose: 10 ml - Exam General: Alert (to voice, is sleepy but smiles and briefly answers my questions) , No Acute Distress HEENT: Mucous Membr. Moist/[place] Neck: Trachea Midline Lungs: Clear to Auscultation, Decreased Breath Sounds Cardiovascular: Regular Rate GI/Abdominal Exam: Normal Bowel Sounds, Soft, Non-Tender, No Distention (Male) Exam: Deferred Back Exam: Other Extremities: Normal Inspection Skin: Warm, Dry Neurological: No New Focal Deficit Psy/Mental Status: Alert, Normal Affect - Problem List & Annotations (1) Schizophrenia SNOMED Code(s): 95629774 Code(s): F20.9 - SCHIZOPHRENIA, UNSPECIFIED Status: Chronic Priority: Medium Current Visit: Yes Qualifiers: Schizophrenia type: unspecified Qualified Code(s): F20.9 - Schizophrenia, unspecified (2) Dementia SNOMED Code(s): 20605796 Code(s): F03.90 - UNSPECIFIED DEMENTIA WITHOUT BEHAVIORAL DISTURBANCE Status: Chronic Priority: Medium Current Visit: Yes Qualifiers: Dementia type: unspecified type (3) Delirium SNOMED Code(s): 4356800 Code(s): R41.0 - DISORIENTATION, UNSPECIFIED Status: Acute Priority: High Current Visit: Yes - Problem List Review Problem List Initiated/Reviewed/Updated: Yes - Assessment Assessment:: As above - Plan Plan:: As above. Extensive precautions were given to the patient, who is in agreement with the treatment plan. [facility] [place] assumes care as above 11/12/18 Sherley Rodriguez MD He is more alert today. He has eye contact and does answer most of my questions slowly. Nurses were able to get him out of bed to chair which was not possible yesterday. Creatinine improving today. Able to swallow better today. I talked to him about transferring to [facility] hospital and he says no. He is okay with staying here in the hospital in [place]. His sister WILIAN also okay with him staying in [place] and not transferring to [facility]. 11-13-18 Jessica Arnett PA-C More alert again today, and more talkative, but still calm with appropriate behavior and responses. Labs reviewed, no changes made. Reassurance given to patient that he is getting better. Will monitor mood and behaviors closely to consider need to restart antipsych med. 11-14-18 Jessica Arnett PA-C Patient has been more alert and visiting coherently with nursing staff, ate 75% of breakfast and is taking fluids. Initially had decreased rate of IV fluids but will DC. Encouragement given to patient that he is getting better and he smiles and says, "Good" and tells me thanks. Dr. Lepe will see tomorrow and determine date of return to [facility].
[2018-11-14] MEDS: Pantoprazole 40 MG Vial IVPUSH SCH (20:10)
[2018-11-14] MEDS: Latanoprost 0.005% Ophth Soln 2.5 ML Bottle EYEBOTH SCH (20:11)
[2018-11-15] MEDS: Metoprolol Tartrate 5 MG/5 ML SDV IVPUSH SCH ×3 (00:52→13:51)
[2018-11-15] MEDS: Sodium Chloride 0.9% 10 ML Syringe FLUSH PRN ×4 (00:54→17:47)
[2018-11-15] MEDS: metroNIDAZOLE/Normal Saline 500 MG in Premix Bag 1 BAG IV SCH ×3 (01:00→17:46)
[2018-11-15 07:24] LABS: CHLORIDE,CL 100 mmol/L (98-107); SODIUM,NA 134 mmol/L (136-145)
[2018-11-15] MEDS: Insulin Lispro 100 Units/ML 3 ML Vial SUBCUT SCH ×4 (07:37→20:02)
[2018-11-15] MEDS: Insulin Glarg,Human.Rec.Analog 100 UNIT/ML ML SUBCUT SCH ×2 (07:38→20:01)
[2018-11-15] MEDS: Dorzolamide 2% Ophth Soln 10 ML Bottle EYEBOTH SCH ×2 (07:39→17:46)
[2018-11-15] MEDS: Sodium Chloride 0.9% 10 ML Syringe FLUSH SCH ×2 (07:40→20:00)
[2018-11-15] MEDS: Timolol Maleate 0.5% Ophth Soln 5 ML Bottle EYEBOTH SCH ×2 (07:40→17:48)
[2018-11-15] MEDS: Folic Acid 1 MG Tab PO SCH (07:40)
[2018-11-15] MEDS: cefTRIAXone 1 GM in Sodium Chloride 0.9% 100 ML IV SCH ×2 (09:39→20:01)
--- NOTE | 2018-11-15 17:05 | PCM.PN ---
- General Info Date of Service: 11/15/18 Admission Dx/Problem (Free Text): 1. CHF 2. Decompensated IDDM 3. Sedation Subjective Update: He is an extremely poor historian secondary to his mental status and sedation. Functional Status: Reports: Pain Controlled, Tolerating Diet - Review of Systems General: Reports: Weakness, Appetite (improving) HEENT: Reports: No Symptoms Pulmonary: Reports: No Symptoms Cardiovascular: Reports: No Symptoms Gastrointestinal: Reports: Decreased Appetite, Difficulty Swallowing (improved) Genitourinary: Reports: Frequency, Incontinence (asking for urinal now) Musculoskeletal: Reports: No Symptoms Skin: Reports: No Symptoms Neurological: Reports: Confusion, Pre-Existing Deficit, Difficulty Walking ( unable) Psychiatric: Reports: Confusion, Hallucinations, Other (starting with some paranoid thoughts) - Patient Data Vitals - Most Recent: Last Vital Signs Temp 97.6 F 11/15/18 15:52 Pulse 86 11/15/18 15:52 Resp 18 11/15/18 15:52 BP 118/64 11/15/18 15:52 Pulse Ox 97 11/15/18 15:52 Weight - Most Recent: 199 lb I&O - Last 24 Hours: Intake & Output 11/15/18 11/15/18 11/15/18 06:59 14:59 22:59 Intake Total 100 596 Balance 100 596 Lab Results Last 24 Hours: Laboratory Results - last 24 hr 11/14/18 11/14/18 11/15/18 Range/Units 16:59 19:55 06:50 WBC 9.6 (4.0-10.2) K/uL RBC 3.38 L (4.33-5.41) M/uL Hgb 11.1 L (13.1-16.8) g/dL Hct 33.3 L (39.0-49.0) % MCV 98.5 H D (84.0-98.0) fL MCH 32.8 (28.2-33.3) pg MCHC 33.3 (31.7-36.0) g/dL RDW 13.8 (11.2-14.1) % Plt Count 353 H (150-350) K/uL Neut % (Auto) 63.9 (45.0-80.0) % Lymph % (Auto) 20.4 (10.0-50.0) % [place]offey % (Auto) 10.6 (2.0-14.0) % Eos % (Auto) 4.3 (0.0-5.0) % Baso % (Auto) 0.8 (0.0-2.0) % Neut # (Auto) 6.13 (1.40-7.00) K/uL Lymph # (Auto) 1.96 (0.50-3.50) K/uL [place]y # (Auto) 1.02 H (0.00-1.00) K/uL Eos # (Auto) 0.41 (0.00-0.50) K/uL Baso # (Auto) 0.08 (0.00-0.20) K/uL Sodium (136-145) mmol/L Potassium (3.5-5.1) mmol/L Chloride (98-107) mmol/L Carbon Dioxide (21.0-32.0) mmol/L BUN (7-18) mg/dL Creatinine (0.51-1.17) mg/dL Est Cr Clr Drug Dosing mL/min Estimated GFR (MDRD) mL/min Glucose (74-106) mg/dL POC Glucose 226 H 271 H* (65-110) mg/dl Calcium (8.5-10.1) mg/dL Total Bilirubin (0.2-1.0) mg/dL AST (15-37) U/L ALT (12-78) U/L Alkaline Phosphatase (46-116) IU/L C-Reactive Protein (<=0.9) mg/dL Total Protein (6.4-8.2) g/dL Albumin (3.4-5.0) g/dL 11/15/18 11/15/18 11/15/18 Range/Units 06:50 07:10 11:03 WBC (4.0-10.2) K/uL RBC (4.33-5.41) M/uL Hgb (13.1-16.8) g/dL Hct (39.0-49.0) % MCV (84.0-98.0) fL MCH (28.2-33.3) pg MCHC (31.7-36.0) g/dL RDW (11.2-14.1) % Plt Count (150-350) K/uL Neut % (Auto) (45.0-80.0) % Lymph % (Auto) (10.0-50.0) % [place]offey % (Auto) (2.0-14.0) % Eos % (Auto) (0.0-5.0) % Baso % (Auto) (0.0-2.0) % Neut # (Auto) (1.40-7.00) K/uL Lymph # (Auto) (0.50-3.50) K/uL [place]y # (Auto) (0.00-1.00) K/uL Eos # (Auto) (0.00-0.50) K/uL Baso # (Auto) (0.00-0.20) K/uL Sodium 134 L (136-145) mmol/L Potassium 3.7 (3.5-5.1) mmol/L Chloride 100 (98-107) mmol/L Carbon Dioxide 23.7 (21.0-32.0) mmol/L BUN 20 H (7-18) mg/dL Creatinine 1.10 (0.51-1.17) mg/dL Est Cr Clr Drug Dosing 66.60 mL/min Estimated GFR (MDRD) > 60 mL/min Glucose 158 H (74-106) mg/dL POC Glucose 160 H 218 H (65-110) mg/dl Calcium 8.7 (8.5-10.1) mg/dL Total Bilirubin 0.5 (0.2-1.0) mg/dL AST 40 H (15-37) U/L ALT 20 (12-78) U/L Alkaline Phosphatase 88 (46-116) IU/L C-Reactive Protein 10.7 H (<=0.9) mg/dL Total Protein 7.0 (6.4-8.2) g/dL Albumin 2.3 L (3.4-5.0) g/dL Med Orders - Current: Current Medications Acetaminophen (Tylenol) 650 mg RECTAL Q4H PRN PRN Reason: Pain Dorzolamide HCl (Trusopt 2% Ophth Soln) 0 ml EYEBOTH BID [facility] Last Admin: 11/15/18 07:39 Dose: 1 drop Folic Acid (Folic Acid) 1 mg PO DAILY [facility] Last Admin: 11/15/18 07:40 Dose: 1 mg Ceftriaxone Sodium 1 gm/ (Sodium Chloride) 100 mls @ 200 mls/hr IV Q12H [facility] Last Admin: 11/15/18 09:39 Dose: 200 mls/hr Metronidazole 500 mg/ Premix 100 mls @ 100 mls/hr IV Q8H [facility] Last Admin: 11/15/18 09:40 Dose: 100 mls/hr Insulin Glargine (Lantus) 20 unit SUBCUT Q12HR [facility] Last Admin: 11/15/18 07:38 Dose: 20 unit Insulin Human Lispro (Humalog) 0 unit SUBCUT QIDACANDBED [facility]; Protocol Last Admin: 11/15/18 11:52 Dose: 2 units Latanoprost (Xalatan 0.005% Ophth Soln) 0 ml EYEBOTH BEDTIME [facility] Last Admin: 11/14/18 20:11 Dose: 1 drop Levothyroxine Sodium (Synthroid) 50 mcg PO ACBREAKFAST [facility] Metoprolol Tartrate (Lopressor) 25 mg PO Q12HR [facility] Ondansetron HCl (Zofran) 4 mg IVPUSH Q6H PRN PRN Reason: Nausea/Vomiting Last Admin: 11/14/18 07:30 Dose: 4 mg Pantoprazole Sodium (Protonix Iv) 40 mg IVPUSH BEDTIME [facility] Last Admin: 11/14/18 20:10 Dose: 40 mg Quetiapine Fumarate (Seroquel) 25 mg PO BEDTIME [facility] Sodium Chloride (Saline Flush) 10 ml FLUSH ASDIRECTED PRN PRN Reason: Keep Vein Open Last Admin: 11/15/18 09:43 Dose: 10 ml Sodium Chloride (Saline Flush) 10 ml FLUSH Q12HR [facility] Last Admin: 11/15/18 07:40 Dose: 10 ml Timolol Maleate (Timoptic 0.5% Ophth Soln) 0 ml EYEBOTH BID [facility] Last Admin: 11/15/18 07:40 Dose: 1 drop Discontinued Medications Acetaminophen (Tylenol) 650 mg PO Q4H PRN PRN Reason: Pain Allopurinol (Zyloprim) 100 mg PO DAILY [facility] Last Admin: 11/11/18 08:06 Dose: Not Given Cholecalciferol (Vitamin D3) 4,000 units PO DAILY [facility] Last Admin: 11/11/18 08:06 Dose: Not Given Divalproex Sodium (Divalproex Sodium) 500 mg PO BID [facility] Last Admin: 11/11/18 08:03 Dose: Not Given Enoxaparin Sodium (Lovenox) 100 mg SUBCUT Q24H [facility] Last Admin: 11/11/18 12:12 Dose: 100 mg Famotidine (Pepcid) 40 mg IVPUSH ONETIME ONE Stop: 11/10/18 09:59 Last Admin: 11/10/18 10:17 Dose: 40 mg Fenofibrate (Fenofibrate) 134 mg PO BEDTIME [facility] Last Admin: 11/10/18 20:37 Dose: Not Given Furosemide (Lasix) 40 mg IVPUSH Q8H [facility] Last Admin: 11/11/18 12:11 Dose: 40 mg Potassium Chloride 10 meq/ (Premix) 50 mls @ 50 mls/hr IV Q6H [facility] Last Admin: 11/12/18 11:28 Dose: 50 mls/hr Sodium Chloride (Normal Saline) 1,000 mls @ 100 mls/hr IV ASDIRECTED [facility] Last Admin: 11/14/18 01:46 Dose: 100 mls/hr Sodium Chloride (Normal Saline) 1,000 mls @ 50 mls/hr IV ASDIRECTED [facility] Insulin Glargine (Lantus) 30 unit SUBCUT BEDTIME [facility] Insulin Glargine (Lantus) 40 unit SUBCUT QPM [facility] Last Admin: 11/10/18 20:39 Dose: Not Given Insulin Glargine (Lantus) 40 unit SUBCUT ONETIME ONE Stop: 11/10/18 18:14 Last Admin: 11/10/18 18:47 Dose: 40 units Insulin Glargine (Lantus) 20 unit SUBCUT BID [facility] Last Admin: 11/12/18 08:00 Dose: 20 units Insulin Human Lispro (Humalog) 14 unit SUBCUT ONETIME ONE Stop: 11/11/18 18:44 Insulin Human Lispro (Humalog) 14 unit SUBCUT ONETIME ONE Stop: 11/10/18 18:44 Last Admin: 11/10/18 19:11 Dose: 14 units [facility] Protocol Insulin Human Regular (Humulin R) 10 unit IV ONETIME ONE Stop: 11/10/18 12:07 Last Admin: 11/10/18 13:35 Dose: 10 units Insulin Human Regular (Humulin R) 10 unit IV ONETIME ONE Stop: 11/10/18 14:56 Last Admin: 11/10/18 15:10 Dose: 10 units Insulin Lispro Protam/Lispro Human (Humalog Mix 75-25) 16 unit SUBCUT ONETIME ONE Stop: 11/10/18 21:01 Last Admin: 11/10/18 21:41 Dose: 16 units Lactobacillus Rhamnosus (Culturelle) 1 cap PO DAILY [facility] Last Admin: 11/11/18 08:03 Dose: Not Given Levothyroxine Sodium (Synthroid) 50 mcg PO DAILY [facility] Last Admin: 11/11/18 08:04 Dose: Not Given Melatonin (Melatonin) 3 mg PO BEDTIME [facility] Last Admin: 11/10/18 20:38 Dose: Not Given Metoprolol Tartrate (Lopressor) 25 mg PO BID [facility] Last Admin: 11/11/18 08:04 Dose: Not Given Metoprolol Tartrate (Lopressor) 5 mg IVPUSH Q6H [facility] Last Admin: 11/13/18 20:36 Dose: Not Given Metoprolol Tartrate (Lopressor) 2.5 mg IVPUSH Q6H [facility] Last Admin: 11/15/18 13:51 Dose: Not Given Non-Formulary Medication (Psyllium Husk [Metamucil]) 0.4 gm PO DAILY [facility] Last Admin: 11/11/18 13:15 Dose: Not Given Omeprazole (Omeprazole) 20 mg PO BIDAC [facility] Last Admin: 11/11/18 08:03 Dose: Not Given Potassium Chloride (Potassium Chloride Solution) 20 meq PO BID [facility] Last Admin: 11/11/18 13:15 Dose: Not Given Pravastatin Sodium (Pravachol) 40 mg PO BEDTIME [facility] Last Admin: 11/10/18 20:38 Dose: Not Given Risperidone (Risperidal) 2 mg PO BEDTIME [facility] Last Admin: 11/10/18 20:38 Dose: Not Given Risperidone (Risperidal) 1 mg PO BEDTIME [facility] Sodium Chloride (Saline Flush) 10 ml FLUSH Q12HR PRN PRN Reason: Keep Vein Open Last Admin: 11/11/18 03:34 Dose: 10 ml - Exam General: Alert, Cooperative HEENT: Mucous Membr. Moist/[place] Neck: Trachea Midline, No JVD Lungs: Normal Respiratory Effort, Decreased Breath Sounds, Rhonchi Cardiovascular: Regular Rate, Regular Rhythm GI/Abdominal Exam: Soft, Non-Tender, No Distention (Male) Exam: Deferred Back Exam: Normal Inspection Extremities: Normal Inspection, Non-Tender, No Pedal Edema Skin: Warm, Dry, Intact Neurological: Other (maddie lift, is bearing weight when he pivots) Psy/Mental Status: Alert, Hallucinations (saw what he thought was bugs on his arm), Other (some paranoid thoughts) - Problem List & Annotations (1) Acute hypoactive delirium due to multiple etiologies SNOMED Code(s): 111992108, 310673804, 039641722 Code(s): F05 - DELIRIUM DUE TO KNOWN PHYSIOLOGICAL CONDITION Status: Acute Priority: High Current Visit: Yes (2) Aspiration pneumonia SNOMED Code(s): 281367767 Code(s): J69.0 - PNEUMONITIS DUE TO INHALATION OF FOOD AND VOMIT Status: Acute Current Visit: Yes Qualifiers: Aspiration pneumonia type: due to vomit Laterality: unspecified laterality (3) Apnea SNOMED Code(s): 9033757, 249153727 Code(s): R06.81 - APNEA, NOT ELSEWHERE CLASSIFIED Status: Acute Priority : High Current Visit: Yes Onset Date: 11/09/18 Annotation/Comment:: No true apneic episodes in the emergency room or during initial phases of this hospitalization with more abdominal type breathing. Note baseline sinus tachycardia with no apparent chest pain or anginal complaints despite CHF. She does have some difficulty swallowing his medications with possible incomplete doses of his current Lopressor therapy. No significant EKG changes. Note NO CODE STATUS. Telephone consultation with Valerie from the [facility] with prior to admission and also this morning with no telemetry beds available in their facility. We did receive approval for continued admission and care in this facility. Stefanie Sandoval MD at [facility] [place] was informed of the patient's admission and will resume his care later today. Continue observation status with transfer to the [facility] in [place] tomorrow, if bed is available. Standard rule out GA orders have been negative artifactually elevated CK index secondary to a low baseline CK. No oxygen therapy is required at this time. (4) CHF (congestive heart failure) SNOMED Code(s): 75397236 Code(s): I50.9 - HEART FAILURE, UNSPECIFIED Status: Acute Priority: High Current Visit: Yes Onset Date: 11/10/18 Qualifiers: Heart failure type: unspecified Heart failure chronicity: acute Qualified Code(s): I50.9 - Heart failure, unspecified Annotation/Comment:: Continue IV Lasix therapy. 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 No Chest pain or anginal complaints with chest pain protocol not initiated in the emergency room. Note NO CODE STATUS with no further echocardiogram, cardiology workup, etc. (5) Dysphagia SNOMED Code(s): 39750870, 629501552 Code(s): R13.10 - DYSPHAGIA, UNSPECIFIED Status: Acute Priority: High Current Visit: Yes Onset Date: ~11/10/18 Qualifiers: Dysphagia type: unspecified Qualified Code(s): R13.10 - Dysphagia, unspecified Annotation/Comment:: Problems with oral medications as above with additional possible aspiration pneumonia secondary to his leukocytosis today. IV Rocephin and IV Flagyl initiated with repeat x-rays tomorrow. (6) Elevated d-dimer SNOMED Code(s): 563650777 Code(s): R79.89 - OTHER SPECIFIED ABNORMAL FINDINGS OF BLOOD CHEMISTRY Status: Acute Priority: High Current Visit: Yes Onset Date: 11/10/18 Annotation/Comment:: Newly diagnosed on admission. CT scan not available at this time secondary to equipment failure. Note mildly progressive renal insufficiency and NO CODE STATUS. Venous Doppler studies of the lower extremities yesterday were normal. Continue high-dose IV Lovenox for now. (7) Hypoalbuminemia SNOMED Code(s): 291484232 Code(s): E88.09 - [facility] DISORDERS OF PLASMA-PROTEIN METABOLISM, NEC Status: Acute Priority: Medium Current Visit: Yes Onset Date: 11/10/18 Annotation/Comment:: Observe for now. Consider high protein Glucerna supplements. (8) Hypomagnesemia SNOMED Code(s): 986072996 Code(s): E83.42 - HYPOMAGNESEMIA Status: Acute Priority: Medium Current Visit: Yes Onset Date: 11/10/18 Annotation/Comment:: Observe for now secondary to his renal insufficiency. (9) Hyponatremia SNOMED Code(s): 99403432 Code(s): E87.1 - HYPO-OSMOLALITY AND HYPONATREMIA Status: Acute Priority : High Current Visit: Yes Onset Date: 11/10/18 Annotation/Comment:: Secondary to his CHF and improved this morning. IV Lasix therapy as above. Hyponatremia may be partial etiology to his increased lethargy. Note recent medication changes, CT scan of the head, EEG, etc. at the [facility] in [place] as above. (10) Renal insufficiency SNOMED Code(s): 928569666, 374947618 Code(s): N28.9 - DISORDER OF KIDNEY AND URETER, UNSPECIFIED Status: Acute Priority: High Current Visit: Yes Onset Date: 11/10/18 Annotation/ Comment:: Newly diagnosed probable diabetic nephropathy. IV Lasix therapy with caution as above. Continue to observe closely by his regular providers at the accepting physicians. (11) Hypertension SNOMED Code(s): 83887598 Code(s): I10 - ESSENTIAL (PRIMARY) HYPERTENSION Status: Chronic Priority : Medium Current Visit: Yes Qualifiers: Hypertension type: essential hypertension Qualified Code(s): I10 - Essential (primary) hypertension Annotation/Comment:: Good control in the emergency room and during hospitalization. (12) IDDM (insulin dependent diabetes mellitus) SNOMED Code(s): 67231021 Code(s): E11.9 - TYPE 2 DIABETES MELLITUS WITHOUT COMPLICATIONS; Z79.4 - RESIDENTIAL (CURRENT) USE OF INSULIN Status: Chronic Priority: High Current Visit: Yes Annotation/Comment:: Hyperglycemia extremely refractory to adequate therapy likely secondary to high-dose Risperdal, which also is a factor in his CHF. Accu-Cheks improved this morning with 2 doses of Low-dose IV Humulin regular insulin and an additional extra dose of Humalog mix required yesterday. Medication adjustments during this hospitalization including increased however now split regimen of his Lantus with continuation of subcutaneous sliding scale. Glycosylated hemoglobin morning is 8.2%. Note mildly elevated ketones on admission however normal this morning. (13) Psychosis SNOMED Code(s): 93219698 Code(s): F29 - UNSP PSYCHOSIS NOT DUE TO A SUBSTANCE OR KNOWN PHYSIOL COND Status: Chronic Priority: High Current Visit: Yes Qualifiers: Psychosis type: schizoaffective disorder Schizoaffective disorder type: bipolar Qualified Code(s): F25.0 - Schizoaffective disorder, bipolar type Annotation/Comment:: [facility] [place] during recent hospitalization as per emergency room note. Secondary to his CHF, refractory hyperglycemia, and significant sedation his Risperdal will be decreased starting this evening. Continue to observe closely. (14) Rheumatoid arthritis SNOMED Code(s): 44674441 Code(s): M06.9 - RHEUMATOID ARTHRITIS, UNSPECIFIED Status: Chronic Priority: Medium Current Visit: Yes Qualifiers: Rheumatoid arthritis location: multiple sites Rheumatoid factor presence: unspecified presence Qualified Code(s): M06.9 - Rheumatoid arthritis, unspecified Annotation/Comment:: Stable by history (15) Chronic renal disease, stage 4, severely decreased glomerular filtration rate (GFR) between 15-29 mL/min/1.73 square meter SNOMED Code(s): 809569696 Code(s): N18.4 - CHRONIC KIDNEY DISEASE, STAGE 4 (SEVERE) Status: Acute Priority: High Current Visit: Yes (16) History of traumatic brain injury SNOMED Code(s): 93647970976104, 99253461403086 Code(s): Z87.820 - PERSONAL HISTORY OF TRAUMATIC BRAIN INJURY Status: Acute Priority: Medium Current Visit: Yes (17) Carbuncle and furuncle of buttock SNOMED Code(s): 90948445 Code(s): L02.33 - CARBUNCLE OF BUTTOCK Status: Acute Priority: High Current Visit: Yes (18) Acute on chronic renal failure SNOMED Code(s): 314519019 Code(s): N17.9 - ACUTE KIDNEY FAILURE, UNSPECIFIED; N18.9 - CHRONIC KIDNEY DISEASE, UNSPECIFIED Status: Acute Priority: High Current Visit: Yes Qualifiers: Acute renal failure type: with acute tubular necrosis Chronic kidney disease stage: stage 3 (moderate) Qualified Code(s): N17.0 - Acute kidney failure with tubular necrosis; N18.3 - Chronic kidney disease, stage 3 (moderate ) (19) Schizophrenia, chronic condition SNOMED Code(s): 56237510 Code(s): F20.9 - SCHIZOPHRENIA, UNSPECIFIED Status: Acute Priority: High Current Visit: Yes - Problem List Review Problem List Initiated/Reviewed/Updated: Yes - My Orders Last 24 Hours: My Active Orders 11/15/18 05:11 Chest 2V [CR] Routine 11/15/18 08:00 Consult to Case Management/Bar Useful Or Busser [CONS] Routine Consult to Occupational Therapy [OT Evaluation and Treatment] [CONS] Routine Consult to Physical Therapy [PT Evaluation and Treatment] [CONS] Routine Head wo Cont [CT] Routine 11/15/18 20:00 Metoprolol Tartrate [Lopressor] 25 mg PO Q12HR QUEtiapine [SEROquel] 25 mg PO BEDTIME 11/16/18 07:30 Levothyroxine [Synthroid] 50 mcg PO ACBREAKFAST - Assessment Assessment:: As above - Plan Plan:: As above. Extensive precautions were given to the patient, who is in agreement with the treatment plan. [facility] assumes care as above 11/12/18 Sherley Rodriguez MD He is more alert today. He has eye contact and does answer most of my questions slowly. Nurses were able to get him out of bed to chair which was not possible yesterday. Creatinine improving today. Able to swallow better today. I talked to him about transferring to [facility] and he says no. He is okay with staying here in the hospital in [place]. His sister WILIAN also okay with him staying in [place] and not transferring to [facility]. 11-13-18 Jessica Arnett PA-C More alert again today, and more talkative, but still calm with appropriate behavior and responses. Labs reviewed, no changes made. Reassurance given to patient that he is getting better. Will monitor mood and behaviors closely to consider need to restart antipsych med. 11-14-18 Jessica Arnett PA-C Patient has been more alert and visiting coherently with nursing staff, ate 75% of breakfast and is taking fluids. Initially had decreased rate of IV fluids but will DC. Encouragement given to patient that he is getting better and he smiles and says, "Good" and tells me thanks. Dr. Lepe will see tomorrow and determine date of return to [facility]. 11/15/18 Sherley Rodriguez MD Continues slow improvement. Still some episodes of confusion and now some thoughts of paranoia. Better oral intake and appears to be swallowing okay. CRP improving but still elevated. He needs continued impatient status to continue IV antibiotics and PT-OT. Some concerns or urinary retention so will obtain bladder scan and PSA. Also consult speech to reassess dysphagia.
[2018-11-15] MEDS ORDERED: Magnesium Hydroxide 400 MG/5 ML Susp 30 ML Cup PO PRN (18:49)
[2018-11-15] MEDS: Metoprolol Tartrate 25 MG Tab PO SCH (19:59)
[2018-11-15] MEDS ORDERED: QUEtiapine 25 MG Tab PO SCH (20:00)
[2018-11-15] MEDS: Latanoprost 0.005% Ophth Soln 2.5 ML Bottle EYEBOTH SCH (20:00)
[2018-11-15] MEDS: Pantoprazole 40 MG Vial IVPUSH SCH (20:00)
[2018-11-16] MEDS: metroNIDAZOLE/Normal Saline 500 MG in Premix Bag 1 BAG IV SCH ×2 (01:47→11:11)
[2018-11-16] MEDS: Sodium Chloride 0.9% 10 ML Syringe FLUSH PRN ×2 (01:48→11:11)
[2018-11-16] MEDS ORDERED: Levothyroxine 50 MCG Tab PO SCH (07:30)
[2018-11-16 07:45] LABS: CHLORIDE,CL 105 mmol/L (98-107); SODIUM,NA 139 mmol/L (136-145)
[2018-11-16] MEDS: Insulin Lispro 100 Units/ML 3 ML Vial SUBCUT SCH ×2 (09:56→12:23)
[2018-11-16] MEDS: cefTRIAXone 1 GM in Sodium Chloride 0.9% 100 ML IV SCH (09:57)
[2018-11-16] MEDS: Folic Acid 1 MG Tab PO SCH (09:57)
[2018-11-16] MEDS: Metoprolol Tartrate 25 MG Tab PO SCH (09:57)
[2018-11-16] MEDS: Insulin Glarg,Human.Rec.Analog 100 UNIT/ML ML SUBCUT SCH (09:58)
[2018-11-16] MEDS: Dorzolamide 2% Ophth Soln 10 ML Bottle EYEBOTH SCH (09:59)
[2018-11-16] MEDS: Sodium Chloride 0.9% 10 ML Syringe FLUSH SCH (09:59)
[2018-11-16] MEDS: Timolol Maleate 0.5% Ophth Soln 5 ML Bottle EYEBOTH SCH (10:00)
--- NOTE | 2018-11-16 13:16 | PCM.PN ---
- General Info Date of Service: 11/16/18 Admission Dx/Problem (Free Text): 1. CHF 2. Decompensated IDDM 3. Sedation Subjective Update: He is an extremely poor historian secondary to his mental status and sedation. Functional Status: Reports: Pain Controlled, Tolerating Diet, Urinating - Review of Systems General: Reports: Weakness, Appetite (improving) HEENT: Reports: No Symptoms Pulmonary: Reports: No Symptoms Cardiovascular: Reports: No Symptoms Gastrointestinal: Reports: Decreased Appetite, Difficulty Swallowing (improving) Genitourinary: Reports: No Symptoms Musculoskeletal: Reports: No Symptoms Skin: Reports: No Symptoms Neurological: Reports: Confusion, Pre-Existing Deficit, Difficulty Walking ( unable), Weakness Psychiatric: Reports: Confusion, Hallucinations (saw bugs on his arm), Other ( paronoid thoughts) - Patient Data Vitals - Most Recent: Last Vital Signs Temp 98.7 F 11/15/18 19:42 Pulse 0 L 11/16/18 09:57 Resp 17 11/15/18 19:42 BP 0/0 L 11/16/18 09:57 Pulse Ox 98 11/15/18 19:42 Weight - Most Recent: 199 lb I&O - Last 24 Hours: Intake & Output 11/15/18 11/16/18 11/16/18 22:59 06:59 14:59 Intake Total 640 200 Output Total 800 Balance 640 -600 Lab Results Last 24 Hours: Laboratory Results - last 24 hr 11/15/18 11/15/18 11/16/18 Range/Units 17:06 19:57 07:09 WBC 8.4 (4.0-10.2) K/uL RBC 3.15 L (4.33-5.41) M/uL Hgb 10.3 L (13.1-16.8) g/dL Hct 31.1 L (39.0-49.0) % MCV 98.7 H (84.0-98.0) fL MCH 32.7 (28.2-33.3) pg MCHC 33.1 (31.7-36.0) g/dL RDW 13.8 (11.2-14.1) % Plt Count 364 H (150-350) K/uL Neut % (Auto) 59.4 (45.0-80.0) % Lymph % (Auto) 23.6 (10.0-50.0) % [place] % (Auto) 12.1 (2.0-14.0) % Eos % (Auto) 4.2 (0.0-5.0) % Baso % (Auto) 0.7 (0.0-2.0) % Neut # (Auto) 5.00 (1.40-7.00) K/uL Lymph # (Auto) 1.99 (0.50-3.50) K/uL [place] # (Auto) 1.02 H (0.00-1.00) K/uL Eos # (Auto) 0.35 (0.00-0.50) K/uL Baso # (Auto) 0.06 (0.00-0.20) K/uL Sodium (136-145) mmol/L Potassium (3.5-5.1) mmol/L Chloride (98-107) mmol/L Carbon Dioxide (21.0-32.0) mmol/L BUN (7-18) mg/dL Creatinine (0.51-1.17) mg/dL Est Cr Clr Drug Dosing mL/min Estimated GFR (MDRD) mL/min Glucose (74-106) mg/dL POC Glucose 260 H* 248 H (65-110) mg/dl Calcium (8.5-10.1) mg/dL Total Bilirubin (0.2-1.0) mg/dL Direct Bilirubin (0.0-0.2) mg/dL Indirect Bilirubin AST (15-37) U/L ALT (12-78) U/L Alkaline Phosphatase (46-116) IU/L C-Reactive Protein (<=0.9) mg/dL Total Protein (6.4-8.2) g/dL Albumin (3.4-5.0) g/dL Globulin Albumin/Globulin Ratio Prostate Specific Ag (0.13-4.0) ng/ml 11/16/18 11/16/18 11/16/18 Range/Units 07:09 09:35 11:36 WBC (4.0-10.2) K/uL RBC (4.33-5.41) M/uL Hgb (13.1-16.8) g/dL Hct (39.0-49.0) % MCV (84.0-98.0) fL MCH (28.2-33.3) pg MCHC (31.7-36.0) g/dL RDW (11.2-14.1) % Plt Count (150-350) K/uL Neut % (Auto) (45.0-80.0) % Lymph % (Auto) (10.0-50.0) % [place] % (Auto) (2.0-14.0) % Eos % (Auto) (0.0-5.0) % Baso % (Auto) (0.0-2.0) % Neut # (Auto) (1.40-7.00) K/uL Lymph # (Auto) (0.50-3.50) K/uL [place] # (Auto) (0.00-1.00) K/uL Eos # (Auto) (0.00-0.50) K/uL Baso # (Auto) (0.00-0.20) K/uL Sodium 139 (136-145) mmol/L Potassium 3.5 (3.5-5.1) mmol/L Chloride 105 (98-107) mmol/L Carbon Dioxide 25.5 (21.0-32.0) mmol/L BUN 16 (7-18) mg/dL Creatinine 1.08 (0.51-1.17) mg/dL Est Cr Clr Drug Dosing 67.84 mL/min Estimated GFR (MDRD) > 60 mL/min Glucose 185 H (74-106) mg/dL POC Glucose 185 H 176 H (65-110) mg/dl Calcium 8.5 (8.5-10.1) mg/dL Total Bilirubin 0.4 (0.2-1.0) mg/dL Direct Bilirubin 0.2 (0.0-0.2) mg/dL Indirect Bilirubin 0.2 AST 35 (15-37) U/L ALT 18 (12-78) U/L Alkaline Phosphatase 89 (46-116) IU/L C-Reactive Protein 6.9 H (<=0.9) mg/dL Total Protein 6.5 (6.4-8.2) g/dL Albumin 2.1 L (3.4-5.0) g/dL Globulin 4.4 Albumin/Globulin Ratio 0.48 Prostate Specific Ag 0.24 (0.13-4.0) ng/ml Med Orders - Current: Current Medications Acetaminophen (Tylenol) 650 mg RECTAL Q4H PRN PRN Reason: Pain Dorzolamide HCl (Trusopt 2% Ophth Soln) 0 ml EYEBOTH BID [facility] Last Admin: 11/16/18 09:59 Dose: 1 drop Folic Acid (Folic Acid) 1 mg PO DAILY [facility] Last Admin: 11/16/18 09:57 Dose: 1 mg Ceftriaxone Sodium 1 gm/ (Sodium Chloride) 100 mls @ 200 mls/hr IV Q12H [facility] Last Admin: 11/16/18 09:57 Dose: 200 mls/hr Metronidazole 500 mg/ Premix 100 mls @ 100 mls/hr IV Q8H [facility] Last Admin: 11/16/18 11:11 Dose: 100 mls/hr Insulin Glargine (Lantus) 20 unit SUBCUT Q12HR [facility] Last Admin: 11/16/18 09:58 Dose: 20 unit Insulin Human Lispro (Humalog) 0 unit SUBCUT QIDACANDBED [facility]; Protocol Last Admin: 11/16/18 12:23 Dose: 1 units Latanoprost (Xalatan 0.005% Ophth Soln) 0 ml EYEBOTH BEDTIME [facility] Last Admin: 11/15/18 20:00 Dose: 1 drop Levothyroxine Sodium (Synthroid) 50 mcg PO ACBREAKFAST [facility] Last Admin: 11/16/18 09:57 Dose: 50 mcg Magnesium Hydroxide (Milk Of Magnesia) 30 ml PO DAILY PRN PRN Reason: Constipation Last Admin: 11/15/18 19:59 Dose: 30 ml Metoprolol Tartrate (Lopressor) 25 mg PO Q12HR [facility] Last Admin: 11/16/18 09:57 Dose: 25 mg Ondansetron HCl (Zofran) 4 mg IVPUSH Q6H PRN PRN Reason: Nausea/Vomiting Last Admin: 11/14/18 07:30 Dose: 4 mg Pantoprazole Sodium (Protonix Iv) 40 mg IVPUSH BEDTIME [facility] Last Admin: 11/15/18 20:00 Dose: 40 mg Quetiapine Fumarate (Seroquel) 25 mg PO BEDTIME [facility] Last Admin: 11/15/18 19:59 Dose: 25 mg Sodium Chloride (Saline Flush) 10 ml FLUSH ASDIRECTED PRN PRN Reason: Keep Vein Open Last Admin: 11/16/18 11:11 Dose: 10 ml Sodium Chloride (Saline Flush) 10 ml FLUSH Q12HR [facility] Last Admin: 11/16/18 09:59 Dose: 10 ml Timolol Maleate (Timoptic 0.5% Ophth Soln) 0 ml EYEBOTH BID [facility] Last Admin: 11/16/18 10:00 Dose: 1 drop Discontinued Medications Acetaminophen (Tylenol) 650 mg PO Q4H PRN PRN Reason: Pain Allopurinol (Zyloprim) 100 mg PO DAILY [facility] Last Admin: 11/11/18 08:06 Dose: Not Given Cholecalciferol (Vitamin D3) 4,000 units PO DAILY [facility] Last Admin: 11/11/18 08:06 Dose: Not Given Divalproex Sodium (Divalproex Sodium) 500 mg PO BID [facility] Last Admin: 11/11/18 08:03 Dose: Not Given Enoxaparin Sodium (Lovenox) 100 mg SUBCUT Q24H [facility] Last Admin: 11/11/18 12:12 Dose: 100 mg Famotidine (Pepcid) 40 mg IVPUSH ONETIME ONE Stop: 11/10/18 09:59 Last Admin: 11/10/18 10:17 Dose: 40 mg Fenofibrate (Fenofibrate) 134 mg PO BEDTIME [facility] Last Admin: 11/10/18 20:37 Dose: Not Given Furosemide (Lasix) 40 mg IVPUSH Q8H [facility] Last Admin: 11/11/18 12:11 Dose: 40 mg Potassium Chloride 10 meq/ (Premix) 50 mls @ 50 mls/hr IV Q6H [facility] Last Admin: 11/12/18 11:28 Dose: 50 mls/hr Sodium Chloride (Normal Saline) 1,000 mls @ 100 mls/hr IV ASDIRECTED [facility] Last Admin: 11/14/18 01:46 Dose: 100 mls/hr Sodium Chloride (Normal Saline) 1,000 mls @ 50 mls/hr IV ASDIRECTED [facility] Insulin Glargine (Lantus) 30 unit SUBCUT BEDTIME [facility] Insulin Glargine (Lantus) 40 unit SUBCUT QPM [facility] Last Admin: 11/10/18 20:39 Dose: Not Given Insulin Glargine (Lantus) 40 unit SUBCUT ONETIME ONE Stop: 11/10/18 18:14 Last Admin: 11/10/18 18:47 Dose: 40 units Insulin Glargine (Lantus) 20 unit SUBCUT BID [facility] Last Admin: 11/12/18 08:00 Dose: 20 units Insulin Human Lispro (Humalog) 14 unit SUBCUT ONETIME ONE Stop: 11/11/18 18:44 Insulin Human Lispro (Humalog) 14 unit SUBCUT ONETIME ONE Stop: 11/10/18 18:44 Last Admin: 11/10/18 19:11 Dose: 14 units Insulin Human Lispro (Humalog) 0 unit SUBCUT BIDAC [facility]; Protocol Insulin Human Regular (Humulin R) 10 unit IV ONETIME ONE Stop: 11/10/18 12:07 Last Admin: 11/10/18 13:35 Dose: 10 units Insulin Human Regular (Humulin R) 10 unit IV ONETIME ONE Stop: 11/10/18 14:56 Last Admin: 11/10/18 15:10 Dose: 10 units Insulin Lispro Protam/Lispro Human (Humalog Mix 75-25) 16 unit SUBCUT ONETIME ONE Stop: 11/10/18 21:01 Last Admin: 11/10/18 21:41 Dose: 16 units Lactobacillus Rhamnosus (Culturelle) 1 cap PO DAILY [facility] Last Admin: 11/11/18 08:03 Dose: Not Given Levothyroxine Sodium (Synthroid) 50 mcg PO DAILY [facility] Last Admin: 11/11/18 08:04 Dose: Not Given Melatonin (Melatonin) 3 mg PO BEDTIME [facility] Last Admin: 11/10/18 20:38 Dose: Not Given Metoprolol Tartrate (Lopressor) 25 mg PO BID [facility] Last Admin: 11/11/18 08:04 Dose: Not Given Metoprolol Tartrate (Lopressor) 5 mg IVPUSH Q6H [facility] Last Admin: 11/13/18 20:36 Dose: Not Given Metoprolol Tartrate (Lopressor) 2.5 mg IVPUSH Q6H [facility] Last Admin: 11/15/18 13:51 Dose: Not Given Non-Formulary Medication (Psyllium Husk [Metamucil]) 0.4 gm PO DAILY [facility] Last Admin: 11/11/18 13:15 Dose: Not Given Omeprazole (Omeprazole) 20 mg PO BIDAC [facility] Last Admin: 11/11/18 08:03 Dose: Not Given Potassium Chloride (Potassium Chloride Solution) 20 meq PO BID [facility] Last Admin: 11/11/18 13:15 Dose: Not Given Pravastatin Sodium (Pravachol) 40 mg PO BEDTIME [facility] Last Admin: 11/10/18 20:38 Dose: Not Given Risperidone (Risperidal) 2 mg PO BEDTIME [facility] Last Admin: 11/10/18 20:38 Dose: Not Given Risperidone (Risperidal) 1 mg PO BEDTIME [facility] Sodium Chloride (Saline Flush) 10 ml FLUSH Q12HR PRN PRN Reason: Keep Vein Open Last Admin: 11/11/18 03:34 Dose: 10 ml - Exam Quality Assessment: Skin Breakdown (carbuncle on buttock healing) General: Alert, Cooperative, No Acute Distress HEENT: Pupils Equal, Pupils Reactive, EOMI, Mucous Membr. Moist/[place] Neck: Trachea Midline, No JVD Lungs: Normal Respiratory Effort, Decreased Breath Sounds, Rhonchi Cardiovascular: Regular Rate, Regular Rhythm GI/Abdominal Exam: Soft, Non-Tender, No Distention (Male) Exam: Deferred Back Exam: Normal Inspection Extremities: Normal Inspection, Non-Tender, No Pedal Edema Skin: Warm, Dry, Intact Wound/Incisions: Healing Well (carbuncle buttock) Neurological: No New Focal Deficit Psy/Mental Status: Alert, Hallucinations (at times), Other (paronoid) - Problem List & Annotations (1) Acute hypoactive delirium due to multiple etiologies SNOMED Code(s): 814764913, 767932639, 535295717 Code(s): F05 - DELIRIUM DUE TO KNOWN PHYSIOLOGICAL CONDITION Status: Acute Priority: High Current Visit: Yes (2) Aspiration pneumonia SNOMED Code(s): 617356078 Code(s): J69.0 - PNEUMONITIS DUE TO INHALATION OF FOOD AND VOMIT Status: Acute Current Visit: Yes Qualifiers: Aspiration pneumonia type: due to vomit Laterality: unspecified laterality (3) Acute on chronic renal failure SNOMED Code(s): 486923318 Code(s): N17.9 - ACUTE KIDNEY FAILURE, UNSPECIFIED; N18.9 - CHRONIC KIDNEY DISEASE, UNSPECIFIED Status: Acute Priority: High Current Visit: Yes Qualifiers: Acute renal failure type: with acute tubular necrosis Chronic kidney disease stage: stage 3 (moderate) Qualified Code(s): N17.0 - Acute kidney failure with tubular necrosis; N18.3 - Chronic kidney disease, stage 3 (moderate ) (4) Apnea SNOMED Code(s): 6775715, 724077132 Code(s): R06.81 - APNEA, NOT ELSEWHERE CLASSIFIED Status: Acute Priority : High Current Visit: Yes Onset Date: 11/09/18 Annotation/Comment:: No true apneic episodes in the emergency room or during initial phases of this hospitalization with more abdominal type breathing. Note baseline sinus tachycardia with no apparent chest pain or anginal complaints despite CHF. She does have some difficulty swallowing his medications with possible incomplete doses of his current Lopressor therapy. No significant EKG changes. Note NO CODE STATUS. Telephone consultation with Valerie from the [facility] in [place] with prior to admission and also this morning with no telemetry beds available in their facility. We did receive approval for continued admission and care in this facility. Stefanie Sandoval MD at [facility] [place] was informed of the patient's admission and will resume his care later today. Continue observation status with transfer [place] [facility] [place] tomorrow, if bed is available. Standard rule out [place] orders have been negative artifactually elevated CK index secondary to a low baseline CK. No oxygen therapy is required at this time. (5) Dysphagia SNOMED Code(s): 30854197, 463320999 Code(s): R13.10 - DYSPHAGIA, UNSPECIFIED Status: Acute Priority: High Current Visit: Yes Onset Date: ~11/10/18 Qualifiers: Dysphagia type: unspecified Qualified Code(s): R13.10 - Dysphagia, unspecified Annotation/Comment:: Problems with oral medications as above with additional possible aspiration pneumonia secondary to his leukocytosis today. IV Rocephin and IV Flagyl initiated with repeat x-rays tomorrow. (6) Carbuncle and furuncle of buttock SNOMED Code(s): 03535002 Code(s): L02.33 - CARBUNCLE OF BUTTOCK Status: Acute Priority: High Current Visit: Yes (7) Elevated d-dimer SNOMED Code(s): 662391466 Code(s): R79.89 - OTHER SPECIFIED ABNORMAL FINDINGS OF BLOOD CHEMISTRY Status: Acute Priority: High Current Visit: Yes Onset Date: 11/10/18 Annotation/Comment:: Newly diagnosed on admission. CT scan not available at this time secondary to equipment failure. Note mildly progressive renal insufficiency and NO CODE STATUS. Venous Doppler studies of the lower extremities yesterday were normal. Continue high-dose IV Lovenox for now. (8) Renal insufficiency SNOMED Code(s): 260156530, 800703752 Code(s): N28.9 - DISORDER OF KIDNEY AND URETER, UNSPECIFIED Status: Acute Priority: High Current Visit: Yes Onset Date: 11/10/18 Annotation/ Comment:: Newly diagnosed probable diabetic nephropathy. IV Lasix therapy with caution as above. Continue to observe closely by his regular providers at the accepting physicians. (9) Hypoalbuminemia SNOMED Code(s): 376093221 Code(s): E88.09 - OTH DISORDERS OF PLASMA-PROTEIN METABOLISM, NEC Status: Acute Priority: Medium Current Visit: Yes Onset Date: 11/10/18 Annotation/Comment:: Observe for now. Consider high protein Glucerna supplements. (10) Hypomagnesemia SNOMED Code(s): 112966922 Code(s): E83.42 - HYPOMAGNESEMIA Status: Acute Priority: Medium Current Visit: Yes Onset Date: 11/10/18 Annotation/Comment:: Observe for now secondary to his renal insufficiency. (11) Hyponatremia SNOMED Code(s): 38773790 Code(s): E87.1 - HYPO-OSMOLALITY AND HYPONATREMIA Status: Acute Priority : High Current Visit: Yes Onset Date: 11/10/18 Annotation/Comment:: Secondary to his CHF and improved this morning. IV Lasix therapy as above. Hyponatremia may be partial etiology to his increased lethargy. Note recent medication changes, CT scan of the head, EEG, etc. [place] [facility] [place] as [place]. (12) Hypertension SNOMED Code(s): 11002913 Code(s): I10 - ESSENTIAL (PRIMARY) HYPERTENSION Status: Chronic Priority : Medium Current Visit: Yes Qualifiers: Hypertension type: essential hypertension Qualified Code(s): I10 - Essential (primary) hypertension Annotation/Comment:: Good control in the emergency room and during hospitalization. 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 Accu-Cheks improved this morning with 2 doses of Low-dose IV Humulin regular insulin and an additional extra dose of Humalog mix required yesterday. Medication adjustments during this hospitalization including increased however now split regimen of his Lantus with continuation of subcutaneous sliding scale. Glycosylated hemoglobin morning is 8.2%. Note mildly elevated ketones on admission however normal this morning. (14) Psychosis SNOMED Code(s): 75984092 Code(s): F29 - UNSP PSYCHOSIS NOT DUE TO A SUBSTANCE OR KNOWN PHYSIOL COND Status: Chronic Priority: High Current Visit: Yes Qualifiers: Psychosis type: schizoaffective disorder Schizoaffective disorder type: bipolar Qualified Code(s): F25.0 - Schizoaffective disorder, bipolar type Annotation/Comment:: [facility] [place] during recent hospitalization as per emergency room note. Secondary to his CHF, refractory hyperglycemia, and significant sedation his Risperdal will be decreased starting this evening. Continue to observe closely. (15) Rheumatoid arthritis SNOMED Code(s): 32735663 Code(s): M06.9 - RHEUMATOID ARTHRITIS, UNSPECIFIED Status: Chronic Priority: Medium Current Visit: Yes Qualifiers: Rheumatoid arthritis location: multiple sites Rheumatoid factor presence: unspecified presence Qualified Code(s): M06.9 - Rheumatoid arthritis, unspecified Annotation/Comment:: Stable by history (16) History of traumatic brain injury SNOMED Code(s): 46604790865540, 68674309121487 Code(s): Z87.820 - PERSONAL HISTORY OF TRAUMATIC BRAIN INJURY Status: Acute Priority: Medium Current Visit: Yes (17) Schizophrenia, chronic condition SNOMED Code(s): 06985244 Code(s): F20.9 - SCHIZOPHRENIA, UNSPECIFIED Status: Acute Priority: High Current Visit: Yes (18) CHF (congestive heart failure) SNOMED Code(s): 53492995 Code(s): I50.9 - HEART FAILURE, UNSPECIFIED Status: Acute Priority: High Current Visit: Yes Onset Date: 11/10/18 Qualifiers: Heart failure type: unspecified Heart failure chronicity: acute Qualified Code(s): I50.9 - Heart failure, unspecified - Problem List Review Problem List Initiated/Reviewed/Updated: Yes - My Orders Last 24 Hours: My Active Orders 11/15/18 17:08 Bladder Scan [RC] ONETIME 11/15/18 18:49 Magnesium Hydroxide [Milk of Magnesia] 30 ml PO DAILY PRN 11/15/18 20:00 Metoprolol Tartrate [Lopressor] 25 mg PO Q12HR QUEtiapine [SEROquel] 25 mg PO BEDTIME 11/16/18 07:30 Levothyroxine [Synthroid] 50 mcg PO ACBREAKFAST 11/16/18 08:00 Consult to Speech Language Pathology [[facility] [employer] Evaluation and Treatment] [CONS] Routine 11/16/18 11:00 Echo Comp wo Cont [US] Routine 11/16/18 12:52 Discontinue Saline Lock [Peripheral IV Discontinue] [OM.PC] Routine 11/16/18 13:09 Ready for Discharge [RC] PER UNIT ROUTINE - Assessment Assessment:: As above - Plan Plan:: As above. Extensive precautions were given to the patient, who is in agreement with the treatment plan. [facility] [place] care as above 11/12/18 Sherley Rodriguez MD He is more alert today. He has eye contact and does answer most of my questions slowly. Nurses were able to get him out of bed to chair which was not possible yesterday. Creatinine improving today. Able to swallow better today. I talked to him about transferring to [facility] hospital and he says no. He is okay with staying here in the hospital in [place]. His sister WILIAN also okay with him staying in [place] and not transferring to [facility]. 11-13-18 Jessica Arnett PA-C More alert again today, and more talkative, but still calm with appropriate behavior and responses. Labs reviewed, no changes made. Reassurance given to patient that he is getting better. Will monitor mood and behaviors closely to consider need to restart antipsych med. 11-14-18 Jessica Arnett PA-C Patient has been more alert and visiting coherently with nursing staff, ate 75% of breakfast and is taking fluids. Initially had decreased rate of IV fluids but will DC. Encouragement given to patient that he is getting better and he smiles and says, "Good" and tells me thanks. Dr. Lepe will see tomorrow and determine date of return to [facility]. 11/15/18 Sherley Rodriguez MD Continues slow improvement. Still some episodes of confusion and now some thoughts of paranoia. Better oral intake and appears to be swallowing okay. CRP improving but still elevated. He needs continued impatient status to continue IV antibiotics and PT-OT. Some concerns or urinary retention so will obtain bladder scan and PSA. Also consult speech to reassess dysphagia. 11/16/18 Sherley Rodriguez MD He continues slow gradual improvement. Crp improved. Appetite continues to improve. Renal function markedly improved. Strength is improving. Talking more. Stable and ready for discharge and admission to [facility].
--- NOTE | 2018-11-16 13:18 | PCM.DCSUM1 ---
Discharge Summary - Hospital Course Diagnosis: Stroke: No - Discharge Data Discharge Date: 11/16/18 Discharge Disposition: DC/Tfer to SNF 03 Condition: Fair - Discharge Diagnosis/Problem(s) (1) Acute hypoactive delirium due to multiple etiologies SNOMED Code(s): 754342740, 269404011, 397197617 ICD Code: F05 - DELIRIUM DUE TO KNOWN PHYSIOLOGICAL CONDITION Status: Acute Priority: High Current Visit: Yes (2) Aspiration pneumonia SNOMED Code(s): 366906835 ICD Code: J69.0 - PNEUMONITIS DUE TO INHALATION OF FOOD AND VOMIT Status: Acute Current Visit: Yes Qualifiers: Aspiration pneumonia type: due to vomit Laterality: unspecified laterality (3) Acute on chronic renal failure SNOMED Code(s): 141074319 ICD Code: N17.9 - ACUTE KIDNEY FAILURE, UNSPECIFIED; N18.9 - CHRONIC KIDNEY DISEASE, UNSPECIFIED Status: Acute Priority: High Current Visit: Yes Qualifiers: Acute renal failure type: with acute tubular necrosis Chronic kidney disease stage: stage 3 (moderate) Qualified Code(s): N17.0 - Acute kidney failure with tubular necrosis; N18.3 - Chronic kidney disease, stage 3 (moderate ) (4) Apnea SNOMED Code(s): 9568477, 381911903 ICD Code: R06.81 - APNEA, NOT ELSEWHERE CLASSIFIED Status: Acute Priority : High Current Visit: Yes Onset Date: 11/09/18 Problem Details: No true apneic episodes in the emergency room or during initial phases of this hospitalization with more abdominal type breathing. Note baseline sinus tachycardia with no apparent chest pain or anginal complaints despite CHF. She does have some difficulty swallowing his medications with possible incomplete doses of his current Lopressor therapy. No significant EKG changes. Note NO CODE STATUS. Telephone consultation with Valerie from the [facility] in [place] with prior to admission and also this morning with no telemetry beds available in their facility. We did receive approval for continued admission and care in this facility. Stefanie Sandoval MD at [facility] in [place] was informed of the patient's admission and will resume his care later today. Continue observation status with transfer to the [facility] in [place] tomorrow, if bed is available. Standard rule out [place] orders have been negative artifactually elevated CK index secondary to a low baseline CK. No oxygen therapy is required at this time. (5) Dysphagia SNOMED Code(s): 71004839, 884252219 ICD Code: R13.10 - DYSPHAGIA, UNSPECIFIED Status: Acute Priority: High Current Visit: Yes Onset Date: ~11/10/18 Problem Details: Problems with oral medications as above with additional possible aspiration pneumonia secondary to his leukocytosis today. IV Rocephin and IV Flagyl initiated with repeat x-rays tomorrow. Qualifiers: Dysphagia type: unspecified Qualified Code(s): R13.10 - Dysphagia, unspecified (6) Carbuncle and furuncle of buttock SNOMED Code(s): 27365240 ICD Code: L02.33 - CARBUNCLE OF BUTTOCK Status: Acute Priority: High Current Visit: Yes (7) Elevated d-dimer SNOMED Code(s): 511636276 ICD Code: R79.89 - OTHER SPECIFIED ABNORMAL FINDINGS OF BLOOD CHEMISTRY Status: Acute Priority: High Current Visit: Yes Onset Date: 11/10/18 Problem Details: Newly diagnosed on admission. CT scan not available at this time secondary to equipment failure. Note mildly progressive renal insufficiency and NO CODE STATUS. Venous Doppler studies of the lower extremities yesterday were normal. Continue high-dose IV Lovenox for now. (8) Renal insufficiency SNOMED Code(s): 006300885, 170782838 ICD Code: N28.9 - DISORDER OF KIDNEY AND URETER, UNSPECIFIED Status: Acute Priority: High Current Visit: Yes Onset Date: 11/10/18 Problem Details : Newly diagnosed probable diabetic nephropathy. IV Lasix therapy with caution as above. Continue to observe closely by his regular providers at the accepting physicians. (9) Hypoalbuminemia SNOMED Code(s): 687606413 ICD Code: E88.09 - [facility] DISORDERS OF PLASMA-PROTEIN METABOLISM, NEC Status: Acute Priority: Medium Current Visit: Yes Onset Date: 11/10/18 Problem Details: Observe for now. Consider high protein Glucerna supplements. (10) Hypomagnesemia SNOMED Code(s): 124042925 ICD Code: E83.42 - HYPOMAGNESEMIA Status: Acute Priority: Medium Current Visit: Yes Onset Date: 11/10/18 Problem Details: Observe for now secondary to his renal insufficiency. (11) Hyponatremia SNOMED Code(s): 20577556 ICD Code: E87.1 - HYPO-OSMOLALITY AND HYPONATREMIA Status: Acute Priority : High Current Visit: Yes Onset Date: 11/10/18 Problem Details: Secondary to his CHF and improved this morning. IV Lasix therapy as above. Hyponatremia may be partial etiology to his increased lethargy. Note recent medication changes, CT scan of the head, EEG, etc. at the [facility] in [place] as above. (12) Hypertension SNOMED Code(s): 01769471 ICD Code: I10 - ESSENTIAL (PRIMARY) HYPERTENSION Status: Chronic Priority : Medium Current Visit: Yes Problem Details: Good control in the emergency room and during hospitalization. Qualifiers: Hypertension type: essential hypertension Qualified Code(s): I10 - Essential (primary) hypertension (13) IDDM (insulin dependent diabetes mellitus) SNOMED Code(s): 85353494 ICD Code: E11.9 - TYPE 2 DIABETES MELLITUS WITHOUT COMPLICATIONS; Z79.4 - SHELTER (CURRENT) USE OF INSULIN Status: Chronic Priority: High Current Visit: Yes Problem Details: Hyperglycemia extremely refractory to adequate therapy likely secondary to high-dose Risperdal, which also is a factor in his CHF. Accu-Cheks improved this morning with 2 doses of Low-dose IV Humulin regular insulin and an additional extra dose of Humalog mix required yesterday. Medication adjustments during this hospitalization including increased however now split regimen of his Lantus with continuation of subcutaneous sliding scale. Glycosylated hemoglobin morning is 8.2%. Note mildly elevated ketones on admission however normal this morning. (14) Psychosis SNOMED Code(s): 17369804 ICD Code: F29 - UNSP PSYCHOSIS NOT DUE TO A SUBSTANCE OR KNOWN PHYSIOL COND Status: Chronic Priority: High Current Visit: Yes Problem Details: Recent multiple medication adjustments in the [facility] in [place] during recent hospitalization as per emergency room note. Secondary to his CHF, refractory hyperglycemia, and significant sedation his Risperdal will be decreased starting this evening. Continue to observe closely. Qualifiers: Psychosis type: schizoaffective disorder Schizoaffective disorder type: bipolar Qualified Code(s): F25.0 - Schizoaffective disorder, bipolar type (15) Rheumatoid arthritis SNOMED Code(s): 42565109 ICD Code: M06.9 - RHEUMATOID ARTHRITIS, UNSPECIFIED Status: Chronic Priority: Medium Current Visit: Yes Problem Details: Stable by history Qualifiers: Rheumatoid arthritis location: multiple sites Rheumatoid factor presence: unspecified presence Qualified Code(s): M06.9 - Rheumatoid arthritis, unspecified (16) History of traumatic brain injury SNOMED Code(s): 22005065154219, 90203837607640 ICD Code: Z87.820 - PERSONAL HISTORY OF TRAUMATIC BRAIN INJURY Status: Acute Priority: Medium Current Visit: Yes (17) Schizophrenia, chronic condition SNOMED Code(s): 01727728 ICD Code: F20.9 - SCHIZOPHRENIA, UNSPECIFIED Status: Acute Priority: High Current Visit: Yes (18) CHF (congestive heart failure) SNOMED Code(s): 36738631 ICD Code: I50.9 - HEART FAILURE, UNSPECIFIED Status: Acute Priority: High Current Visit: Yes Onset Date: 11/10/18 Qualifiers: Heart failure type: unspecified Heart failure chronicity: acute Qualified Code(s): I50.9 - Heart failure, unspecified - Patient Summary/Data Consults: Consultations 11/15/18 08:00 Consult to Case Management/Water Hydrant Installer [CONS] Routine Consult to Occupational Therapy [OT Evaluation and Treatment] [CONS] Routine Consult to Physical Therapy [PT Evaluation and Treatment] [CONS] Routine 11/16/18 08:00 Consult to Speech Language Pathology [FOOD STAND MANAGER Evaluation and Treatment] [CONS] Routine - Patient Instructions Diet: Diabetic Diet Activity: As Tolerated Driving: Do Not Drive Showering/Bathing: May Shower Other/Special Instructions: Referral to PT-OT and Speech Therapy to evaluate and treat. Accuchecks BID three times a week on Thursday, Thursday, Thursday. Cbc , Crp, CMP in 2 weeks on lab day. - Discharge Plan *PRESCRIPTION DRUG MONITORING PROGRAM REVIEWED*: Not Applicable *COPY OF PRESCRIPTION DRUG MONITORING REPORT IN PATIENT TODD: Not Applicable Prescriptions/Med Rec: Cefprozil [Cefzil] 500 mg PO BID #10 tab Folic Acid 1 mg PO DAILY #30 tablet Insulin Glarg,Human.Rec.Analog [Lantus] 20 unit SQ BID #3 bottle Insulin Lispro [HumaLOG] 2 unit SQ TID@0800,1200,1800 #1 bottle metroNIDAZOLE [Metronidazole] 500 mg PO TID #15 tablet QUEtiapine [SEROquel] 25 mg PO BEDTIME #30 tablet Home Medications: Home Meds Acetaminophen 650 mg PO Q6H PRN 11/10/18 [History] Allopurinol [Zyloprim] 100 mg PO DAILY 11/10/18 [History] Bisacodyl [Correctol] 5 mg PO Q12H PRN 11/10/18 [History] Cholecalciferol (Vitamin D3) [Vitamin D3] 4,000 unit PO DAILY 11/10/18 [History] Dorzolamide HCl/Pf [Dorzolamide 2% Eye Drop] 1 drop EYEBOTH BID 11/10/18 [ History] EPINEPHrine [Symjepi] 0.3 mg SQ Q15M PRN 11/10/18 [History] Famotidine 20 mg PO BID 11/10/18 [History] Fenofibrate Nanocrystallized [Fenofibrate] 145 mg PO BEDTIME 11/10/18 [History] Hydrocortisone [Hydrocortisone 2.5% Crm] 1 applicful RECTAL BID PRN 11/10/18 [ History] Latanoprost [Xalatan 0.005% Ophth Soln] 1 drop EYEBOTH BEDTIME 11/10/18 [History ] Levothyroxine Sodium [Euthyrox] 50 mcg PO DAILY 11/10/18 [History] Melatonin 3 mg PO BEDTIME 11/10/18 [History] Metoprolol Tartrate 25 mg PO BID 11/10/18 [History] Miconazole [Miconazole 2% Crm] 1 applic TOP BID PRN 11/10/18 [History] Psyllium Husk [Metamucil] 0.4 gm PO DAILY 11/10/18 [History] Timolol Maleate [Timoptic 0.5% Ophth Soln] 1 drop EYEBOTH BID 11/10/18 [History] Cefprozil [Cefzil] 500 mg PO BID #10 tab 11/16/18 [Rx] Folic Acid 1 mg PO DAILY #30 tablet 11/16/18 [Rx] Insulin Glarg,Human.Rec.Analog [Lantus] 20 unit SQ BID #3 bottle 11/16/18 [Rx] Insulin Lispro [HumaLOG] 2 unit SQ TID@0800,1200,1800 #1 bottle 11/16/18 [Rx] QUEtiapine [SEROquel] 25 mg PO BEDTIME #30 tablet 11/16/18 [Rx] metroNIDAZOLE [Metronidazole] 500 mg PO TID #15 tablet 11/16/18 [Rx] Oxygen Therapy Mode: Room Air Forms: ED Department Discharge Referrals: Sheets-Stefanie Rodriguez MD [Primary Care Provider] - - Discharge Summary/Plan Comment DC Time >30 min.: No - Patient Data Vitals - Most Recent: Last Vital Signs Temp 98.7 F 11/15/18 19:42 Pulse 0 L 11/16/18 09:57 Resp 17 11/15/18 19:42 BP 0/0 L 11/16/18 09:57 Pulse Ox 98 11/15/18 19:42 Weight - Most Recent: 199 lb I&O - Last 24 hours: Intake & Output 11/15/18 11/16/18 11/16/18 22:59 06:59 14:59 Intake Total 640 200 440 Output Total 800 Balance 640 -600 440 Lab Results - Last 24 hrs: Laboratory Results - last 24 hr 11/15/18 11/15/18 11/16/18 Range/Units 17:06 19:57 07:09 WBC 8.4 (4.0-10.2) K/uL RBC 3.15 L (4.33-5.41) M/uL Hgb 10.3 L (13.1-16.8) g/dL Hct 31.1 L (39.0-49.0) % MCV 98.7 H (84.0-98.0) fL MCH 32.7 (28.2-33.3) pg MCHC 33.1 (31.7-36.0) g/dL RDW 13.8 (11.2-14.1) % Plt Count 364 H (150-350) K/uL Neut % (Auto) 59.4 (45.0-80.0) % Lymph % (Auto) 23.6 (10.0-50.0) % Stanton % (Auto) 12.1 (2.0-14.0) % Eos % (Auto) 4.2 (0.0-5.0) % Baso % (Auto) 0.7 (0.0-2.0) % Neut # (Auto) 5.00 (1.40-7.00) K/uL Lymph # (Auto) 1.99 (0.50-3.50) K/uL Stanton # (Auto) 1.02 H (0.00-1.00) K/uL Eos # (Auto) 0.35 (0.00-0.50) K/uL Baso # (Auto) 0.06 (0.00-0.20) K/uL Sodium (136-145) mmol/L Potassium (3.5-5.1) mmol/L Chloride (98-107) mmol/L Carbon Dioxide (21.0-32.0) mmol/L BUN (7-18) mg/dL Creatinine (0.51-1.17) mg/dL Est Cr Clr Drug Dosing mL/min Estimated GFR (MDRD) mL/min Glucose (74-106) mg/dL POC Glucose 260 H* 248 H (65-110) mg/dl Calcium (8.5-10.1) mg/dL Total Bilirubin (0.2-1.0) mg/dL Direct Bilirubin (0.0-0.2) mg/dL Indirect Bilirubin AST (15-37) U/L ALT (12-78) U/L Alkaline Phosphatase (46-116) IU/L C-Reactive Protein (<=0.9) mg/dL Total Protein (6.4-8.2) g/dL Albumin (3.4-5.0) g/dL Globulin Albumin/Globulin Ratio Prostate Specific Ag (0.13-4.0) ng/ml 11/16/18 11/16/18 11/16/18 Range/Units 07:09 09:35 11:36 WBC (4.0-10.2) K/uL RBC (4.33-5.41) M/uL Hgb (13.1-16.8) g/dL Hct (39.0-49.0) % MCV (84.0-98.0) fL MCH (28.2-33.3) pg MCHC (31.7-36.0) g/dL RDW (11.2-14.1) % Plt Count (150-350) K/uL Neut % (Auto) (45.0-80.0) % Lymph % (Auto) (10.0-50.0) % Stanton % (Auto) (2.0-14.0) % Eos % (Auto) (0.0-5.0) % Baso % (Auto) (0.0-2.0) % Neut # (Auto) (1.40-7.00) K/uL Lymph # (Auto) (0.50-3.50) K/uL Stanton # (Auto) (0.00-1.00) K/uL Eos # (Auto) (0.00-0.50) K/uL Baso # (Auto) (0.00-0.20) K/uL Sodium 139 (136-145) mmol/L Potassium 3.5 (3.5-5.1) mmol/L Chloride 105 (98-107) mmol/L Carbon Dioxide 25.5 (21.0-32.0) mmol/L BUN 16 (7-18) mg/dL Creatinine 1.08 (0.51-1.17) mg/dL Est Cr Clr Drug Dosing 67.84 mL/min Estimated GFR (MDRD) > 60 mL/min Glucose 185 H (74-106) mg/dL POC Glucose 185 H 176 H (65-110) mg/dl Calcium 8.5 (8.5-10.1) mg/dL Total Bilirubin 0.4 (0.2-1.0) mg/dL Direct Bilirubin 0.2 (0.0-0.2) mg/dL Indirect Bilirubin 0.2 AST 35 (15-37) U/L ALT 18 (12-78) U/L Alkaline Phosphatase 89 (46-116) IU/L C-Reactive Protein 6.9 H (<=0.9) mg/dL Total Protein 6.5 (6.4-8.2) g/dL Albumin 2.1 L (3.4-5.0) g/dL Globulin 4.4 Albumin/Globulin Ratio 0.48 Prostate Specific Ag 0.24 (0.13-4.0) ng/ml Med Orders - Current: Current Medications Acetaminophen (Tylenol) 650 mg RECTAL Q4H PRN PRN Reason: Pain Dorzolamide HCl (Trusopt 2% Ophth Soln) 0 ml EYEBOTH BID [facility] Last Admin: 11/16/18 09:59 Dose: 1 drop Folic Acid (Folic Acid) 1 mg PO DAILY [facility] Last Admin: 11/16/18 09:57 Dose: 1 mg Ceftriaxone Sodium 1 gm/ (Sodium Chloride) 100 mls @ 200 mls/hr IV Q12H [facility] Last Admin: 11/16/18 09:57 Dose: 200 mls/hr Metronidazole 500 mg/ Premix 100 mls @ 100 mls/hr IV Q8H [facility] Last Admin: 11/16/18 11:11 Dose: 100 mls/hr Insulin Glargine (Lantus) 20 unit SUBCUT Q12HR [facility] Last Admin: 11/16/18 09:58 Dose: 20 unit Insulin Human Lispro (Humalog) 0 unit SUBCUT QIDACANDBED [facility]; Protocol Last Admin: 11/16/18 12:23 Dose: 1 units Latanoprost (Xalatan 0.005% Ophth Soln) 0 ml EYEBOTH BEDTIME [facility] Last Admin: 11/15/18 20:00 Dose: 1 drop Levothyroxine Sodium (Synthroid) 50 mcg PO ACBREAKFAST [facility] Last Admin: 11/16/18 09:57 Dose: 50 mcg Magnesium Hydroxide (Milk Of Magnesia) 30 ml PO DAILY PRN PRN Reason: Constipation Last Admin: 11/15/18 19:59 Dose: 30 ml Metoprolol Tartrate (Lopressor) 25 mg PO Q12HR [facility] Last Admin: 11/16/18 09:57 Dose: 25 mg Ondansetron HCl (Zofran) 4 mg IVPUSH Q6H PRN PRN Reason: Nausea/Vomiting Last Admin: 11/14/18 07:30 Dose: 4 mg Pantoprazole Sodium (Protonix Iv) 40 mg IVPUSH BEDTIME [facility] Last Admin: 11/15/18 20:00 Dose: 40 mg Quetiapine Fumarate (Seroquel) 25 mg PO BEDTIME [facility] Last Admin: 11/15/18 19:59 Dose: 25 mg Sodium Chloride (Saline Flush) 10 ml FLUSH ASDIRECTED PRN PRN Reason: Keep Vein Open Last Admin: 11/16/18 11:11 Dose: 10 ml Sodium Chloride (Saline Flush) 10 ml FLUSH Q12HR [facility] Last Admin: 11/16/18 09:59 Dose: 10 ml Timolol Maleate (Timoptic 0.5% Ophth Soln) 0 ml EYEBOTH BID [facility] Last Admin: 11/16/18 10:00 Dose: 1 drop Discontinued Medications Acetaminophen (Tylenol) 650 mg PO Q4H PRN PRN Reason: Pain Allopurinol (Zyloprim) 100 mg PO DAILY [facility] Last Admin: 11/11/18 08:06 Dose: Not Given Cholecalciferol (Vitamin D3) 4,000 units PO DAILY [facility] Last Admin: 11/11/18 08:06 Dose: Not Given Divalproex Sodium (Divalproex Sodium) 500 mg PO BID [facility] Last Admin: 11/11/18 08:03 Dose: Not Given Enoxaparin Sodium (Lovenox) 100 mg SUBCUT Q24H [facility] Last Admin: 11/11/18 12:12 Dose: 100 mg Famotidine (Pepcid) 40 mg IVPUSH ONETIME ONE Stop: 11/10/18 09:59 Last Admin: 11/10/18 10:17 Dose: 40 mg Fenofibrate (Fenofibrate) 134 mg PO BEDTIME [facility] Last Admin: 11/10/18 20:37 Dose: Not Given Furosemide (Lasix) 40 mg IVPUSH Q8H [facility] Last Admin: 11/11/18 12:11 Dose: 40 mg Potassium Chloride 10 meq/ (Premix) 50 mls @ 50 mls/hr IV Q6H [facility] Last Admin: 11/12/18 11:28 Dose: 50 mls/hr Sodium Chloride (Normal Saline) 1,000 mls @ 100 mls/hr IV ASDIRECTED [facility] Last Admin: 11/14/18 01:46 Dose: 100 mls/hr Sodium Chloride (Normal Saline) 1,000 mls @ 50 mls/hr IV ASDIRECTED [facility] Insulin Glargine (Lantus) 30 unit SUBCUT BEDTIME [facility] Insulin Glargine (Lantus) 40 unit SUBCUT QPM [facility] Last Admin: 11/10/18 20:39 Dose: Not Given Insulin Glargine (Lantus) 40 unit SUBCUT ONETIME ONE Stop: 11/10/18 18:14 Last Admin: 11/10/18 18:47 Dose: 40 units Insulin Glargine (Lantus) 20 unit SUBCUT BID [facility] Last Admin: 11/12/18 08:00 Dose: 20 units Insulin Human Lispro (Humalog) 14 unit SUBCUT ONETIME ONE Stop: 11/11/18 18:44 Insulin Human Lispro (Humalog) 14 unit SUBCUT ONETIME ONE Stop: 11/10/18 18:44 Last Admin: 11/10/18 19:11 Dose: 14 units Insulin Human Lispro (Humalog) 0 unit SUBCUT BIDAC [facility]; Protocol Insulin Human Regular (Humulin R) 10 unit IV ONETIME ONE Stop: 11/10/18 12:07 Last Admin: 11/10/18 13:35 Dose: 10 units Insulin Human Regular (Humulin R) 10 unit IV ONETIME ONE Stop: 11/10/18 14:56 Last Admin: 11/10/18 15:10 Dose: 10 units Insulin Lispro Protam/Lispro Human (Humalog Mix 75-25) 16 unit SUBCUT ONETIME ONE Stop: 11/10/18 21:01 Last Admin: 11/10/18 21:41 Dose: 16 units Lactobacillus Rhamnosus (Culturelle) 1 cap PO DAILY [facility] Last Admin: 11/11/18 08:03 Dose: Not Given Levothyroxine Sodium (Synthroid) 50 mcg PO DAILY [facility] Last Admin: 11/11/18 08:04 Dose: Not Given Melatonin (Melatonin) 3 mg PO BEDTIME [facility] Last Admin: 11/10/18 20:38 Dose: Not Given Metoprolol Tartrate (Lopressor) 25 mg PO BID [facility] Last Admin: 11/11/18 08:04 Dose: Not Given Metoprolol Tartrate (Lopressor) 5 mg IVPUSH Q6H [facility] Last Admin: 11/13/18 20:36 Dose: Not Given Metoprolol Tartrate (Lopressor) 2.5 mg IVPUSH Q6H [facility] Last Admin: 11/15/18 13:51 Dose: Not Given Non-Formulary Medication (Psyllium Husk [Metamucil]) 0.4 gm PO DAILY [facility] Last Admin: 11/11/18 13:15 Dose: Not Given Omeprazole (Omeprazole) 20 mg PO BIDAC [facility] Last Admin: 11/11/18 08:03 Dose: Not Given Potassium Chloride (Potassium Chloride Solution) 20 meq PO BID [facility] Last Admin: 11/11/18 13:15 Dose: Not Given Pravastatin Sodium (Pravachol) 40 mg PO BEDTIME [facility] Last Admin: 11/10/18 20:38 Dose: Not Given Risperidone (Risperidal) 2 mg PO BEDTIME [facility] Last Admin: 11/10/18 20:38 Dose: Not Given Risperidone (Risperidal) 1 mg PO BEDTIME [facility] Sodium Chloride (Saline Flush) 10 ml FLUSH Q12HR PRN PRN Reason: Keep Vein Open Last Admin: 11/11/18 03:34 Dose: 10 ml
== END 2018-11-16 13:45 | DRG 291 ==
LOC: LL.ED 09:55 → LL.MS 11:48 → OBSVTOIN 11-11 12:46
PROVIDERS: ADMIT Family Medicine; ATTEND Family Medicine
DX: I13.0 Hypertensive heart and chronic kidney disease with heart failure and stage 1 through stage 4 chronic kidney disease, or unspecified chronic kidney disease (principal); J69.0 Pneumonitis due to inhalation of food and vomit; F05 Delirium due to known physiological condition; E87.1 Hypo-osmolality and hyponatremia; N17.9 Acute kidney failure, unspecified; N18.4 Chronic kidney disease, stage 4 (severe); I50.9 Heart failure, unspecified; H40.9 Unspecified glaucoma; K21.9 Gastro-esophageal reflux disease without esophagitis; E78.2 Mixed hyperlipidemia; K59.09 Other constipation; M10.9 Gout, unspecified; M19.90 Unspecified osteoarthritis, unspecified site; E11.42 Type 2 diabetes mellitus with diabetic polyneuropathy; F41.9 Anxiety disorder, unspecified; F32.9 Major depressive disorder, single episode, unspecified; E66.9 Obesity, unspecified; R79.89 Other specified abnormal findings of blood chemistry; F25.0 Schizoaffective disorder, bipolar type; M06.9 Rheumatoid arthritis, unspecified; E87.5 Hyperkalemia; E88.09 Other disorders of plasma-protein metabolism, not elsewhere classified; F03.90 Unspecified dementia, unspecified severity, without behavioral disturbance, psychotic disturbance, mood disturbance, and anxiety; E11.65 Type 2 diabetes mellitus with hyperglycemia; E11.22 Type 2 diabetes mellitus with diabetic chronic kidney disease; E83.42 Hypomagnesemia; L02.33 Carbuncle of buttock; L02.32 Furuncle of buttock; R06.81 Apnea, not elsewhere classified; Z88.8 Allergy status to other drugs, medicaments and biological substances; Z79.899 Other long term (current) drug therapy; Z98.49 Cataract extraction status, unspecified eye; Z79.4 Long term (current) use of insulin; Z68.31 Body mass index [BMI] 31.0-31.9, adult
CPT/HCPCS: 36415; 51701; 51798; 70450; 71045; 71046; 80048; 80053; 80076; 81001; 82009; 82140; 82550; 82553; 82607; 82746; 82803; 82962; 83036; 83605; 83735; 83880; 84100; 84153; 84443; 84484; 84550; 85025; 85379; 85610; 85652; 85730; 86140; 87086; 93005; 93306; 93970; 96365; 96372; 96374; 96375; 96376; 97110-GP; 97163-GP; 97530-GP; 99285-25; A9270-GY; C9113; G0378; J0696; J1650; J1815; J1815-GY; J1940; J2405; J3480; J3490; J7030; J7050